=== PATIENT | female | born 1955 | race Caucasian/White ===

== ENCOUNTER 2018-03-03 08:23 | Outpatient (CLI) | payer OTHER | END 2018-03-03 08:24 | disposition home or self-care (01) | LOC: BICMAMMO 08:23 | PROVIDERS: ATTEND Nurse Practitioner Family | DX: Z12.31 Encounter for screening mammogram for malignant neoplasm of breast (principal); Z85.038 Personal history of other malignant neoplasm of large intestine | CPT/HCPCS: 77063; 77067 ==

== ENCOUNTER 2019-06-17 09:35 | Outpatient (CLI) | payer MEDICARE ==
--- NOTE | 2019-06-17 11:51 | RAD ---
2 VIEWS CHEST: Date: 06/17/19 COMPARISON: None. HISTORY: Dyspnea. FINDINGS: Two views of the chest show normal sized cardiomediastinal silhouette. There is no evidence of consol idation, mass, or pleural effusion. The bones are unremarkable. IMPRESSION: No evidence of acute cardiopulmonary disease. POS: TPC
== END 2019-06-17 09:36 | disposition home or self-care (01) ==
LOC: RAD 09:35
PROVIDERS: ATTEND Internal Medicine Critical Care Medicine
DX: R06.00 Dyspnea, unspecified (principal)
CPT/HCPCS: 71046

== ENCOUNTER 2020-07-13 09:26 | Outpatient (CLI) | payer MEDICARE ==
--- NOTE | 2020-07-13 10:26 | RAD ---
2 VIEWS CHEST: Date: 07/13/2020 PROVIDED CLINICAL HISTORY: Dyspnea. FINDINGS: Comparison with 06/17/2019. Cardiac and mediastinal silhouette is unchanged in appearance. Emphysematous changes are redemonstrat ed. Blunting of the left costophrenic angle may reflect pleural fluid. There is no evidence for focal consolidation or pneumothorax. IMPRESSION: 1. Emphysema. 2. Possible left pleural fluid. POS: CHELITA
== END 2020-07-13 09:27 | disposition home or self-care (01) ==
LOC: BICRAD 09:26
PROVIDERS: ATTEND Family Medicine
DX: R06.00 Dyspnea, unspecified (principal); J43.9 Emphysema, unspecified
CPT/HCPCS: 71046

== ENCOUNTER 2020-08-16 10:40 | Outpatient (CLI) | payer MEDICARE ==
--- NOTE | 2020-08-16 11:22 | CT ---
EXAM: CT chest without contrast per low-dose cancer screening protocol HISTORY: History of smoking and nicotine dependence COMPARISON: CTA chest 12/21/2016 TECHNIQUE: Multiple contiguous axial images were obtained in a CT of the chest without contrast per l ow-dose cancer screening protocol. Sagittal and coronal reformats were performed. FINDINGS: Pulmonary nodules: Emphysematous changes seen in the apices. Scarring is seen in the right apex. Ther e is a 2 mm peripheral nodular opacity on image 73 of 155 in the right upper lobe. There is a 3 mm nodule in the right upper lobe on image 85 of 98. There is a stable triangular nodule in the lingula on image 69 of 155. There is a stable 3 mm peripheral nodule in the left lower lobe on image 69 of 155. There is a calcified granuloma in the right lower lobe. Peripheral opacity in the lateral aspect of the right lung base may represent atelectasis or an early infiltrate. Pleural space: No pneumothorax or pleural effusion are seen. Heart: The heart is normal in size. Mediastinum: No hilar or mediastinal lymphadenopathy appreciated on this limited noncontrast examinat ion. Calcifications are seen in the aorta. Bones: Degenerative changes in the spine. Visualized subdiaphragmatic structures: Unremarkable. IMPRESSION: 1. Lung RADS category 2-benign findings. 2. Lung RADS category S. There is peripheral opacity in the right lower lobe which may represent atel ectasis or an early infiltrate..
== END 2020-08-16 10:41 | disposition home or self-care (01) ==
LOC: BICCT 10:40
PROVIDERS: ATTEND Family Medicine
DX: Z12.2 Encounter for screening for malignant neoplasm of respiratory organs (principal); F17.210 Nicotine dependence, cigarettes, uncomplicated; R91.8 Other nonspecific abnormal finding of lung field
CPT/HCPCS: G0297

== ENCOUNTER 2020-08-26 09:56 | Outpatient (CLI) | payer MEDICARE ==
--- NOTE | 2020-08-26 10:39 | ULT ---
Exam: Abdominal aortic ultrasound: History: Screening for aneurysm. Tobacco use FINDINGS: No evidence for abdominal aortic aneurysm. Mild atherosclerotic changes are noted. The bifurcation re gion is unremarkable. Proximal right and left common iliac arteries are unremarkable. IMPRESSION: No evidence for bowel aortic aneurysm. Evidence for atherosclerotic aortic vascular disease.
== END 2020-08-26 09:57 | disposition home or self-care (01) ==
LOC: BICULT 09:56
PROVIDERS: ATTEND Family Medicine
DX: Z13.6 Encounter for screening for cardiovascular disorders (principal); I70.0 Atherosclerosis of aorta
CPT/HCPCS: 76775

== ENCOUNTER 2020-09-05 13:24 | Outpatient (CLI) | payer MEDICARE ==
--- NOTE | 2020-09-05 14:09 | BD ---
EXAM: DEXA bone density examination HISTORY: 65-year-old postmenopausal female for screening COMPARISON: None FINDINGS: L1--bone mineral density 0.813 g/sq cm; T score -1.6 L2--bone mineral density 0.852 g/sq cm; T score -1.6 L3--bone mineral density 0.868 g/sq cm; T score -2.0 L4--bone mineral density 0.896 g/sq cm; T score -1.5 Total L1-L4--bone mineral density 0.856 g/sq cm; T score 0.7 Left femoral neck--bone mineral density0.479; T score -3.3 Total proximal left femur--bone mineral density 0.630; T score -2.6 IMPRESSION: Osteoporosis.
--- NOTE | 2020-09-05 15:38 | MMO ---
Bilateral MAMMO Bilat Screen [facility]. CLINICAL HISTORY: Patient is 65 years old and is seen for screening. The patient has no family history of breast cancer. The patient has a history of colon cancer. VIEWS: The views performed were: bilateral craniocaudal with tomosynthesis and bilateral mediolateral oblique with tomosynthesis. FILMS COMPARED: The present examination has been compared to prior imaging studies performed at [facility] on 12/15/2014, 12/28/2015, 01/25/2017 and 03/03/2018. This study has been interpreted with the assistance of computer-aided detection. MAMMOGRAM FINDINGS: There are scattered fibroglandular densities. There are no suspicious masses, suspicious calcifications, or new areas of architectural distortion. IMPRESSION: THERE IS NO MAMMOGRAPHIC EVIDENCE OF MALIGNANCY. A ROUTINE FOLLOW-UP MAMMOGRAM IN 1 YEAR IS RECOMMENDED. THE RESULTS OF THIS EXAM WERE SENT TO THE PATIENT. ACR BI-RADS Category 1 - Negative MAMMOGRAPHY NOTE: 1. A negative mammogram report should not delay a biopsy if a dominant of clinically suspicious mass is present. 2. Approximately 10% to 15% of breast cancers are not detected by mammography. 3. Adenosis and dense breasts may obscure an underlying neoplasm. Reported by: GIACOMO MATHIS MD Electonically Signed: [id number]
== END 2020-09-05 13:25 | disposition home or self-care (01) ==
LOC: BICMAMMO 13:24
PROVIDERS: ATTEND Family Medicine
DX: Z12.31 Encounter for screening mammogram for malignant neoplasm of breast (principal); Z13.820 Encounter for screening for osteoporosis; M81.0 Age-related osteoporosis without current pathological fracture; Z85.038 Personal history of other malignant neoplasm of large intestine
CPT/HCPCS: 77063; 77067; 77080

== ENCOUNTER 2020-10-25 09:01 | Outpatient (CLI) | payer MEDICARE ==
--- NOTE | 2020-10-25 09:47 | RAD ---
XR Chest Pa Lat STANDARD HISTORY: Dyspnea COMPARISON: 07/13/2020 FINDINGS: The heart size is normal. The aorta is tortuous. The lungs are well expanded without focal areas of consolidation, pneumothorax or large pleural effusions. A small left pleural effusion may be present and is unchanged. There are degenerative changes in the spine. IMPRESSION: Stable exam.
== END 2020-10-25 09:02 | disposition home or self-care (01) ==
LOC: BICRAD 09:01
PROVIDERS: ATTEND Internal Medicine Critical Care Medicine
DX: R06.00 Dyspnea, unspecified (principal)
CPT/HCPCS: 71046

== ENCOUNTER 2020-11-06 02:38 | Inpatient (IN) | payer MEDICARE ==
[2020-11-06 02:50] LABS: Actual Bicarbonate (HCO3a) 19.4 mEq/L (22-28); Analyzer IN Cardio ER; Base Excess (BEa) -10.6 mEq/L (-2.0 to +3.0); CO2 Tension 59.8 mmHg (35.0-45.0); Calcium, Ionized (arterial) 1.23 mmol/L (1.12-1.30); Carboxyhemoglobin (COHb) 1.8 gm% (0.0-3.0); Hemoglobin (Hb) 15.6 g/dL (12.0-16.0); O2 Tension (PaO2), arterial 117.8 mmHg (> 80.0); Potassium - ABG Lab 3.71 mmol/L (3.70-5.30)
[2020-11-06 03:29] LABS: Band 7 % (5-11); Eosinophils 2 % (0-10); Hemoglobin 15.3 g/dL (12.0-16.0); Lymphocytes 61 % (21-51); MDiff Complete? YES; Mean Corpuscular HGB CONC 32.5 g/dL (32.0-36.0); Mean Corpuscular Hemoglobin 31.3 pg (27.0-31.0); Mean Corpuscular Volume 96.3 fL (78.0-98.0); Mean Platelet Volume 7.4 fL (7.4-10.4); Monocytes 6 % (0-10); Neutrophil 21 % (42-75); Platelet Count 319 thou/uL (130-400); RBC Distribution Width 13.1 % (11.5-14.5); Reactive Lymphocytes 2 % (0-10); White Blood Cell (WBC) Count 13.9 thou/uL (4.8-10.8)
[2020-11-06 03:41] LABS: ALT (SGPT) 35 U/L (8-55); AST (SGOT) 39 U/L (5-34); Albumin 4.2 g/dL (3.4-4.8); Alkaline Phosphatase 85 U/L (40-110); Anion Gap 22 mmol/L (10-20); BUN (Urea Nitrogen) 10 mg/dL (9.8-20.1); Bilirubin, Total 0.7 mg/dL (0.2-1.2); Calc. Creatinine Clearance 0 mL/min (70-130); Calcium 9.2 mg/dL (7.8-10.44); Carbon Dioxide 22 mmol/L (23-31); Chloride 101 mmol/L (98-107); Globulin 2.3 g/dL (2.4-3.5); Glucose 318 mg/dL (80-115); Protein, Total 6.5 g/dL (5.8-8.1); Sodium 141 mmol/L (136-145)
[2020-11-06 03:54] LABS: Puncture Site RRA; pH, Arterial 7.13 (7.35-7.45)
[2020-11-06] MEDS ORDERED: cefOXitin Sodium/Dextrose 2 GM/50 ML BAG ONE (04:06)
[2020-11-06] MEDS ORDERED: Aspirin 325 MG TAB ONE (04:06)
[2020-11-06] MEDS ORDERED: Azithromycin 500 MG VIAL ONE (04:08)
[2020-11-06] MEDS ORDERED: Ondansetron PF 4 MG/2 ML Vial ONE (04:36)
[2020-11-06 04:51] LABS: CKMB 7.9 ng/mL (0-6.6)
[2020-11-06] MEDS ORDERED: Calcium Gluc 4.6 MEQ/10 ML (100 MG/ML) SLOW IVP SCH (05:19)
--- NOTE | 2020-11-06 05:23 | PDOC.HHP ---
Hospitalist HPI SOB History of Present Illness: This is a 65-year-old female patient with a history of COPD, hypercholesterolemia colon cancer who presents to the ED with worsening shortness of breath for the past few days. She notes her symptoms have been gradually worsening for the past couple of months. She notes she has COPD for which she follows chief Dr. Perdue and is on fluticasone/salmeterol at home. With worsening symptoms today she activated EMS and she was brought in for further evaluation. She admits to ongoing cough with whitish sputum production. She denies any hemoptysis. She notes some degree of chest tightness today however no overt chest pain. She denies any sweating palpitations or swelling of her feet. She notes she sleeps in a recliner because she has difficulty lying flat and has experienced h er few episodes of PND. She denies any swelling of her feet or abdomen. EMS noted that she was dyspneic and tachypneic of her heart rate at 113 and gave her duo nebs and 125 mg Solu-Medrol. Her symptoms improved with CPAP. She also received magnesium sulfate. At presentation her blood pressure was 118/78, pulse 104, respiratory rate 18, temperature 98.8 and saturating 96 on room air. Her labs ABG showed pH of 7.13, PCO2 59.8 and PO2 of 117 initially while she was on BiPAP. Chemistry initially showed bicarb of 22 and anion gap of 22 creatinine 1.05 glucose 318 sodium 141. Lactate was elevated at 6.3 and troponin at 0.289. Chest x-ray showed hyperinflated lung mcgovern with no clear infiltrations. EKG showed sinus tachycardia with incomplete right bundle branch block. Also concerns for possible acute pericarditis. She was started on azithromycin and ceftriaxone with aspirin 325 mg and a liter of normal saline. Hospitalist team was consulted to admit. Allergies/Adverse Reactions: Allergy/AdvReac Type Severity Reaction Status Date / Time No Known Allergies Allergy Verified 11/06/20 09:09 Home Medications: Medication Instructions Recorded Confirmed Type Evening [place] Oil 500 mg PO TID 05/16/13 02/15/17 History Flaxseed Oil [Flax Seed Oil] 1,000 mg PO DAILY 05/16/13 11/06/20 History [place]-3 Fatty Acids/Fish Oil 1 cap PO DAILY 05/16/13 11/06/20 History [[place] 3 1,000 mg Softgel] Vitamin E 1,000 unit PO DAILY 05/16/13 11/06/20 History Aspirin [Ecotrin Low Strength] 81 mg PO DAILY 11/06/20 11/06/20 History Atorvastatin Calcium 40 mg PO QPM 11/06/20 11/06/20 History Ibuprofen 400 mg PO Q6HR PRN 11/06/20 11/06/20 History Omeprazole 20 mg PO DAILY 11/06/20 11/06/20 History Tiotropium [place] [Spiriva] 1 inh INH QAM 11/06/20 11/06/20 History Carvedilol [Coreg] 3.125 mg PO TID #60 tab 11/12/20 Rx Furosemide [Lasix] 20 mg PO DAILY #30 tab 11/12/20 Rx Ipratropium/Albuterol Sulfate 3 ml NEB QID PRN #30 neb 11/12/20 Rx [Duoneb] Polyethylene Glycol 3350 [Miralax] 17 gm PO DAILYPRN PRN pk 11/12/20 Rx predniSONE 20 mg PO QAM-WM #4 tab 11/12/20 Rx Past History: PMHx:COPD, hypercholesterolemia colon cancer PSHx:hysterectomy, cholecystectomy FHx:None of significance Social:No smoke, alcohol or illicit drug use history Hospitalist HPI ROS Constitutional: reports: malaise. denies: fever, chills, sweats, weakness Respiratory: reports: cough, shortness of breath, SOB with excertion. denies: hemoptysis Cardiovascular: reports: chest pain, orthopnea, paroxysmal noc. dyspnea. denies: palpitations, edema Genitourinary: denies: dysuria, frequency, incontinence Musculoskeletal: denies: neck pain, shoulder pain, arm pain, back pain Neurological: denies: weakness, numbness, incoordination All other systems reviewed; all pertinent +/- noted in HPI/Subj Hospitalist Exam General Appearance: awake alert General - other findings: In mild respiratory distress Eye: PERRL, anicteric sclera ENT: normocephalic atraumatic Heart: RRR, no murmur, no gallops, no rubs Respiratory - other findings: Reduced air movement bilaterally. Occasional wheezing Gastrointestinal: soft, non-tender, non-distended Extremities: no cyanosis, no clubbing, no edema Neurological: cranial nerve grossly intact, no weakness, no focal deficits Psychiatric: normal affect, normal behavior, A&O x 3 Hospitalist Results Result Diagrams: 11/10/20 05:00 11/08/20 08:35 Lab results: Laboratory Last Values WBC 13.9 thou/uL (4.8-10.8) H 11/06/20 02:48 RBC 4.90 mill/uL (4.20-5.40) 11/06/20 02:48 Hgb 15.3 g/dL (12.0-16.0) 11/06/20 02:48 Hct 47.1 % (36.0-47.0) H 11/06/20 02:48 MCV 96.3 fL (78.0-98.0) 11/06/20 02:48 MCH 31.3 pg (27.0-31.0) H 11/06/20 02:48 MCHC 32.5 g/dL (32.0-36.0) 11/06/20 02:48 RDW 13.1 % (11.5-14.5) 11/06/20 02:48 Plt Count 319 thou/uL (130-400) 11/06/20 02:48 MPV 7.4 fL (7.4-10.4) 11/06/20 02:48 Neutrophils % (Manual) 21 % (42-75) L 11/06/20 02:48 Band Neuts % (Manual) 7 % (5-11) 11/06/20 02:48 Lymphocytes % (Manual) 61 % (21-51) H 11/06/20 02:48 Reactive Lymphs % 2 % (0-10) 11/06/20 02:48 Monocytes % (Manual) 6 % (0-10) 11/06/20 02:48 Eosinophils % (Manual) 2 % (0-10) 11/06/20 02:48 Basophils % (Manual) 1 % (0-2) 11/06/20 02:48 Specimen Type ARTERIAL 11/06/20 02:44 Puncture Site RRA 11/06/20 02:44 Bicarbonate Actual 19.4 mEq/L (22-28) L 11/06/20 02:44 ABG pH 7.13 (7.35-7.45) L* 11/06/20 02:44 ABG pCO2 59.8 mmHg (35.0-45.0) H 11/06/20 02:44 ABG pO2 117.8 mmHg (> 80.0) H 11/06/20 02:44 ABG O2 Sat (Measured) 96.9 % (94.0-98.0) 11/06/20 02:44 ABG O2 Content 20.9 vol% (18.0-21.0) 11/06/20 02:44 ABG Base Excess -10.6 mEq/L (-2.0 to +3.0) L 11/06/20 02:44 ABG Hematocrit 46.0 % (36.0-47.0) 11/06/20 02:44 ABG Hemoglobin 15.6 g/dL (12.0-16.0) 11/06/20 02:44 ABG Oxyhemoglobin 94.5 % (94.0-98.0) 11/06/20 02:44 ABG Carboxyhemoglobin 1.8 gm% (0.0-3.0) 11/06/20 02:44 ABG Methemoglobin 0.70 gm% (0.04-1.52) 11/06/20 02:44 ABG Deoxyhemoglobin 3.0 % (0.0-2.9) H 11/06/20 02:44 Todd Test POSITIVE 11/06/20 02:44 A-a O2 Gradient 92.650 mmHg (0-20) H 11/06/20 02:44 Sodium 139 mmol/L (135-148) 11/06/20 02:44 Potassium 3.71 mmol/L (3.70-5.30) 11/06/20 02:44 Chloride 105 mmol/L (98-106) 11/06/20 02:44 Ionized Calcium 1.23 mmol/L (1.12-1.30) 11/06/20 02:44 Mode of Support BIPAP 11/06/20 02:44 Mechanical Rate 4 min 11/06/20 02:44 Inspired O2 40 % 11/06/20 02:44 Pressure Support 12 cmH2O 11/06/20 02:44 PEEP or CPAP 6.0 cmH2O 11/06/20 02:44 Sodium 141 mmol/L (136-145) 11/06/20 02:48 Potassium 4.0 mmol/L (3.5-5.1) 11/06/20 02:48 Chloride 101 mmol/L (98-107) 11/06/20 02:48 Carbon Dioxide 22 mmol/L (23-31) L 11/06/20 02:48 Anion Gap 22 mmol/L (10-20) H 11/06/20 02:48 BUN 10 mg/dL (9.8-20.1) 11/06/20 02:48 Creatinine 1.05 mg/dL (0.6-1.1) 11/06/20 02:48 Estimated GFR (MDRD) 53 11/06/20 02:48 Glucose 318 mg/dL (80-115) H 11/06/20 02:48 Lactic Acid 6.3 mmol/L (0.5-2.2) H* 11/06/20 02:48 Calcium 9.2 mg/dL (7.8-10.44) 11/06/20 02:48 Total Bilirubin 0.7 mg/dL (0.2-1.2) 11/06/20 02:48 AST 39 U/L (5-34) H 11/06/20 02:48 ALT 35 U/L (8-55) 11/06/20 02:48 Alkaline Phosphatase 85 U/L (40-110) 11/06/20 02:48 CK-MB (CK-2) 7.9 ng/mL (0-6.6) H* 11/06/20 02:48 Troponin I 0.289 ng/mL (< 0.028) H 11/06/20 02:48 B-Natriuretic Peptide 17.6 pg/mL (0-100) 11/06/20 02:40 Serum Total Protein 6.5 g/dL (5.8-8.1) 11/06/20 02:48 Albumin 4.2 g/dL (3.4-4.8) 11/06/20 02:48 Globulin 2.3 g/dL (2.4-3.5) L 11/06/20 02:48 Albumin/Globulin Ratio 1.8 g/dL (1.2-2.2) 11/06/20 02:48 Hospitalist H&P A/P Plan: This is a 65-year-old female patient with a history of COPD who presents with worsening COPD exacerbation and elevated troponin concerning for possible ACS. Acute COPD exacerbation Received Solu-Medrol/DuoNeb's in route on EMS also received magnesium sulfate We will continue present treatment/steroids Continue antibioticsazithromycin and ceftriaxone Was on BiPAPwe will continue Repeat ABG and wean off BiPAP as needed Pulmonology consult in a.m. Elevated troponin possible NSTE-ACS Initial troponin was 0.2 Patient has chest tightness has history of smoking We will start anticoagulation Monitor on telemetry Cardiac consult in a.m. Lactic acidosis Lactic six-point representation Likely secondary to possible severe hypoxia Received IV hydration We will trend Hyperglycemia Glucose 318 Could possibly be due to steroids or root However check A1c Monitor
[2020-11-06 05:35] LABS: Actual Bicarbonate (HCO3a) 18.4 mEq/L (22-28); Analyzer IN Cardio ER; Base Excess (BEa) -6.9 mEq/L (-2.0 to +3.0); CO2 Tension 36.6 mmHg (35.0-45.0); Calcium, Ionized (arterial) 1.15 mmol/L (1.12-1.30); Carboxyhemoglobin (COHb) 1.2 gm% (0.0-3.0); Hemoglobin (Hb) 15.1 g/dL (12.0-16.0); O2 Tension (PaO2), arterial 104.9 mmHg (> 80.0); Potassium - ABG Lab 3.82 mmol/L (3.70-5.30); pH, Arterial 7.32 (7.35-7.45)
[2020-11-06 05:36] LABS: Puncture Site RRA
[2020-11-06 05:42] LABS: SARS-CoV-2 NAA Rapid Test Not Detected (NotDetected)
[2020-11-06 05:58] LABS: Hemoglobin A1c 5.5 % (4.0-6.0)
[2020-11-06 06:06] LABS: Lactic Acid 1.6 mmol/L (0.5-2.2)
[2020-11-06 06:19] LABS: Troponin I 2.696 ng/mL (< 0.028)
[2020-11-06 08:34] VITALS: BMI 24.2
--- NOTE | 2020-11-06 08:39 | RAD ---
Exam: Chest one view HISTORY:Dyspnea. COPD exacerbation. Comparison: 10/25/2020 FINDINGS: Cardiac silhouette: Normal Aorta: Atherosclerosis Pulmonary vessels: Normal Costophrenic angles: Clear LUNGS: Hyperinflation with chronic changes. Pneumothorax: None Osseous abnormalities: None IMPRESSION: 1. COPD. Chronic lung parenchymal changes 2. Atherosclerosis.
[2020-11-06] MEDS ORDERED: Enoxaparin Sodium 40 MG/0.4 ML SYRINGE SC SCH (09:00)
[2020-11-06 09:08] LABS: Troponin I 3.481 ng/mL (< 0.028)
[2020-11-06] MEDS: Enoxaparin Sodium 60 MG/0.6 ML SYRINGE SC SCH ×2 (09:58→21:23)
[2020-11-06] MEDS: methylPREDNISolone Sod Succ 40 MG VIAL IVP SCH (10:02)
[2020-11-06] MEDS: Nitroglycerin 2% Ointment 1 INCH/1 GM Packet TOP SCH ×2 (10:03→21:23)
--- NOTE | 2020-11-06 11:08 | PDOC.BPN ---
- Brief Progress Note Encounter Date: 11/06/20 Encounter Time: 09:00 pt recently admitted today. seen on f/u for copd exacerbation and nstemi. patient refers she feels better. currently denies any chest pain palpitation diaphoresis and sob has improved significantly. labs reviewed and showed uptrending troponins. echo done while i was in the room, f/u results. f/u cardiology recommendations copd -continue nebs - steroids - annika+ rocephin - 02 supplementations nstmie - uptrending troponins - on full ac with lovenox - will add asa - continue statin - patient with borderline low bp in the 100s, unable to stat acei + betablocker for now - f/u cardiology recommendation
[2020-11-06] MEDS ORDERED: Aspirin 325 mg Enteric Coated Tablet PO SCH (11:45)
[2020-11-06 13:33] LABS: Troponin I 3.867 ng/mL (< 0.028)
--- NOTE | 2020-11-06 14:56 | CON ---
DATE OF CONSULTATION: 11/06/2020 INDICATION FOR CONSULTATION: A 65-year-old female with increasing dyspnea on exertion, chest tightness, and abnormal cardiac enzymes. HISTORY OF PRESENT ILLNESS: This is a very pleasant 65-year-old female with a long history of tobacco abuse and COPD. She has been followed by Dr. Hernandez for quite some time. She recently underwent stress testing, which showed no evidence of ischemia. However, she continues to smoke only a few cigarettes a day. She has cut back significantly due to her increasing shortness of breath. Since July, she has noticed she has had increasing shortness of breath. She denied any chest pain, but last p.m., she noticed shortness of breath became much worse and she had some chest tightness. She called 911 and was brought to the emergency room. She does not remember even the ambulance coming nor bringing her into the hospital. She is not sure whether she passed out or not, but she had unlocked the door for them to get into the house. Apparently, [place] At this time, she is comfortable. She denies any chest pain or tightness. Unfortunately, her enzymes were increased. On admission, it was 0.289, increased up to 2.6 and now the most recent one early this morning was 3.48 with an MB of 7.9, which certainly looks very suspicious for myocardial infarction. She does not have any ST-segment elevation and no evidence of Q waves thus far. She also had some lactic acidosis, which is also improved. The lactic acid was 6.3 on arrival, is now down to 1.6. She normally sleeps in a recliner. She is on prednisone for the last 1 to 1-1/[address] Perdue. She is on nebulizer treatments. She has had no changes in her breathing patterns, and she says that her shortness of breath has not improved despite medical management and the addition of the steroids. She had a recent echocardiogram, which showed ejection fraction of 55% to 60%, and she also has a history of a right bundle-branch block, and troponin I is noted above as well as a CPK-MB. PAST MEDICAL HISTORY: Significant for COPD. She has hypercholesterolemia. She has diastolic dysfunction. PAST SURGICAL HISTORY: She has had a cholecystectomy. She has history of endometriosis and underwent surgery for that. She has had a hysterectomy. She has had a hernia repair in 1999. She has had a laparoscopic partial colectomy for cancer and had a colon resection. She then had an incisional hernia repair. She has had left eye retinal repair. She has had cataract surgery. FAMILY HISTORY: Her mother had heart disease, diabetes, and hypertension. Her father , uncertain of the causes. MEDICATIONS: Prior to admission include 1. Spiriva hand-held inhaler. 2. She was taking vitamin E. 3. Cranberries. 4. Elderberry. 5. Turmeric. 6. Red yeast rice. 7. Ibuprofen. 8. MiraLAX. 9. Aspirin 81 mg a day. 10. Flaxseed 1000 mg daily. 11. She was using primrose oil capsules. 12. She has been placed on atorvastatin 40 mg once a day. At this time her medications; she has been placed on Lovenox. She is also on azithromycin. She has been given ceftriaxone. She is on her albuterol inhaler with ipratropium. She has been given aspirin 325 mg a day. She was on pravastatin. I have changed her over to atorvastatin 40 mg a day as well as Lovenox 60 mg subcu twice a day. She is on prednisolone as well as p.r.n. nitroglycerin. ALLERGIES: THERE ARE NO KNOWN DRUG ALLERGIES. REVIEW OF SYSTEMS: A 12-point review of systems unremarkable except as noted in the history of present illness. Mainly, she complains of shortness of breath, which has become worse since July. CONSTITUTIONAL: She denied any weight loss or weight gain. ENT: There are no significant changes. GI: She denied any nausea, vomiting, or diarrhea. : She had no complaints such as dysuria, polyuria, or hematuria. MUSCULOSKELETAL: She says she is able to walk. She denies any claudication type symptoms. NEUROLOGICAL: No history of seizures or syncope. PHYSICAL EXAMINATION: GENERAL: Reveals a very thin statured elderly female. She is in no acute distress at this time. VITAL SIGNS: Her blood pressure is 103/55, heart rate is 116, slightly tachycardic, respiratory rate is 18. She is afebrile. HEENT: Shows the head to be normocephalic and atraumatic. Carotid pulses are present. I did not hear any significant bruits. CHEST: Has decreased breath sounds throughout, but I did not hear any rales, rhonchi, or wheezing. CARDIOVASCULAR: Heart sounds are somewhat distant, but she has a normal S1 and S2. I cannot hear an S3 nor an S4. There were no significant murmurs, heaves, thrills, bruits, or rubs. ABDOMEN: Soft and nontender. Well-healed surgical incisions are present. EXTREMITIES: Show no clubbing, cyanosis, or edema. Pedal pulses are present. Radial pulses are present. NEUROLOGICAL: She appears to be fully intact with no gross focal motor deficits. LABORATORY DATA: Shows a WBC of 13.9, hemoglobin 15.3, and platelet count was 319,000. Sodium is 141, potassium of 4.0, BUN was 10 with a creatinine of 1.05, bicarb is 22, blood sugar is 261. This may be due to her recent use of steroids. I do not have any history that she has any diabetes. On September 26, her blood sugar was 36, but this morning, when she arrived, the laboratory was taken at 2:48 a.m., shows a blood sugar of 318, most likely due to the steroids. IMPRESSION: 1. Probable [id number] elevation myocardial infarction in an elderly female, who has a long history of tobacco abuse and hypercholesterolemia. She most likely will be advised to undergo a cardiac catheterization as a definitive tool to rule out evidence of underlying coronary artery disease. 2. Chronic obstructive pulmonary disease. She will be seen by Dr. Perdue. She is on steroids, but she does state that she has not noticed any improvement in her shortness of breath after starting the nebulizers or the steroids. 3. Hypercholesterolemia. I will continue her on Lipitor 40 mg a day. 4. History of tobacco abuse. She says she is only smoking 2 or 3 cigarettes a day now, whereas in July, she had already cut back to half a pack a day, but previously has smoked much more than that and has smoked for quite some times. We will continue to follow the patient with you. Most likely, she will need to undergo cardiac catheterization as a definitive tool to rule out evidence of underlying coronary artery disease in view of the abnormal presentation with chest tightness, which is new for her as well as increasing shortness of breath and the abnormal cardiac enzymes. Job ID: [id number] [facility]
[2020-11-06] MEDS ORDERED: Simvastatin 10 MG TAB PO SCH (21:00)
[2020-11-06] MEDS: Atorvastatin Calcium 40 MG TAB PO SCH (21:24)
[2020-11-07] MEDS ORDERED: Aspirin 325 mg Enteric Coated Tablet PO SCH (09:00)
[2020-11-07] MEDS ORDERED: Iopamidol 370 76% 100 ML VIAL ONE (11:09)
[2020-11-07] MEDS ORDERED: Sodium Chloride 0.9% 1,000 ML IV SCH ×2 (13:00→15:42)
[2020-11-07] MEDS ORDERED: Communication Order-Pharmacy FS SCH (13:00)
[2020-11-07] MEDS ORDERED: Heparin 10,000 UNITS/ 10 ML VIAL ONE (14:07)
[2020-11-07] MEDS ORDERED: Lidocaine 1% (PF) 30 ML VIAL ONE (14:15)
[2020-11-07 14:16] LABS: Anion Gap 13 mmol/L (10-20); BUN (Urea Nitrogen) 6 mg/dL (9.8-20.1); Calc. Creatinine Clearance 76 mL/min (70-130); Calcium 8.8 mg/dL (7.8-10.44); Carbon Dioxide 26 mmol/L (23-31); Chloride 103 mmol/L (98-107); Glucose 119 mg/dL (80-115); Potassium 3.7 mmol/L (3.5-5.1); Sodium 138 mmol/L (136-145)
--- NOTE | 2020-11-07 14:39 | CON ---
DATE OF CONSULTATION: 11/07/2020 CONSULTING PHYSICIAN: Hospitalist Group. REASON FOR CONSULTATION: Increased shortness of breath. HISTORY OF PRESENT ILLNESS: This is one of Dr. Perdue's patients. She called 911 on Saturday because of increasing dyspnea with exertion. It sounds like she was also having some atypical chest pain. She has seen Dr. Perdue in the office recently and had an adjustment to her bronchodilators and a course of steroids without any improvement in her dyspnea on exertion. She tells me her cardiac enzymes were slightly elevated, and she is scheduled for cardiac catheterization later today. She has had noninvasive cardiac testing in the past, which was negative. PAST MEDICAL HISTORY: 1. COPD. 2. Hyperlipidemia. 3. Diastolic heart dysfunction. PAST SURGICAL HISTORY: 1. Cholecystectomy. 2. Hysterectomy. 3. Hernia repair. 4. Laparoscopic partial colectomy for colon cancer. 5. Left eye retinal detachment repair. 6. Cataract surgery. MEDICATIONS PRIOR TO ADMISSION: 1. Spiriva. 2. Vitamin E. 3. Cranberries. 4. Elderberry. 5. Turmeric. 6. Ibuprofen. 7. MiraLAX. 8. Aspirin. 9. Flaxseed oil. 10. She has been on some type of inhaler at home, she does not know the name. FAMILY HISTORY: Remarkable for diabetes, hypertension. ALLERGIES: NONE. REVIEW OF SYSTEMS: Twelve-point review of systems was otherwise negative, except for that mentioned above. PHYSICAL EXAMINATION: VITAL SIGNS: Temperature 97.7, pulse 89, respirations 16, O2 saturation 97% on room air, and blood pressure 101/58. GENERAL: She is lying quietly in bed, in no acute distress. HEENT: Unremarkable. NECK: Without adenopathy or JVD. LUNGS: Clear to auscultation without wheezing. CARDIAC: S1 and S2, regular. ABDOMEN: Soft and nontender. EXTREMITIES: No clubbing, cyanosis, or edema. DIAGNOSTIC STUDIES: A chest x-ray obtained on 11/06, which was reviewed by myself, shows hyperinflation without evidence of mass, effusion, or infiltrate. Pulmonary function test obtained in 2014 showed FEV1 of 1 L, FVC of 1.95 L with a diffusion capacity of 66% predicted, consistent with obstructive lung disease. ASSESSMENT: 1. Chronic obstructive pulmonary disease, which seems stable. 2. Possible coronary ischemia, made worse with exertion. 3. Diastolic heart dysfunction. PLAN: 1. Cardiac catheterization later today. 2. Continue nebs, antibiotics, and steroids. I will notify Dr. Perdue of patient's admission. Job ID: [id number]
[2020-11-07] MEDS ORDERED: Fentanyl 100 MCG/2 ML VIAL ONE (14:49)
[2020-11-07] MEDS ORDERED: Midazolam HCl 2 mg/2 ml Vial ONE (14:49)
[2020-11-07] MEDS ORDERED: Protamine Sulfate 50 MG/5 ML VIAL ONE (15:17)
[2020-11-07] MEDS ORDERED: Acetaminophen/Codeine 30-300mg Tablet PO PRN ×2 (15:41)
[2020-11-07] MEDS ORDERED: Sodium Chloride 0.9% 200 ML IV PRN (15:41)
--- NOTE | 2020-11-07 15:54 | PDOC.HOSPP ---
- Subjective Encounter Date: 11/07/20 Subjective: No acute events overnight. Patient remained stable and n.p.o. for cardiac catheterization stenting. - Objective Vital Signs & Weight: Vital Signs (12 hours) Pulse Resp Pulse Ox 11/07/20 09:40 89 16 97 11/07/20 06:35 93 16 96 Weight Weight 124 lb I&O: 11/06/20 11/07/20 11/08/20 06:59 06:59 06:59 Intake Total 600 Balance 600 Result Diagrams: 11/06/20 02:48 11/07/20 03:30 Hospitalist ROS - Review of Systems All other systems reviewed; all pertinent +/- noted in HPI/Subj - Medication Medications: Active Medications Generic Name Dose Route Start Last Admin Trade Name Freq PRN Reason Stop Dose Admin Albuterol/Ipratropium 3 ml 11/06/20 06:30 11/07/20 09:40 Ipratropium/Albuterol Sulfate 3 Ml Neb NEB 3 ml [id number] JUAN M Administration Atorvastatin Calcium 40 mg 11/06/20 21:00 11/06/20 21:24 Atorvastatin Calcium 40 Mg Tab PO 40 mg HS JUAN M Administration Methylprednisolone Sodium Succinate 40 mg 11/06/20 09:00 11/06/20 10:02 Methylprednisolone Sod Succ 40 Mg Vial IVP 40 mg DAILY JUAN M Administration Hospitalist Exam Vitals: Vital Signs (12 hours) Pulse Resp Pulse Ox 11/07/20 09:40 89 16 97 11/07/20 06:35 93 16 96 Weight Weight 124 lb General Appearance: NAD, awake alert Eye: PERRL, anicteric sclera Neck: no JVD Heart: RRR, no murmur, no gallops Respiratory: CTAB, no wheezes Gastrointestinal: soft, non-tender, non-distended Psychiatric: normal affect Hosp A/P (1) NSTEMI (non-ST elevated myocardial infarction) Code(s): I21.4 - NON-ST ELEVATION (NSTEMI) MYOCARDIAL INFARCTION Status: Acute (2) Colonic mass Code(s): K63.9 - DISEASE OF INTESTINE, UNSPECIFIED Status: Acute (3) COPD (chronic obstructive pulmonary disease) Status: Chronic - Plan This is a 65-year-old female patient with a history of COPD who presents with worsening COPD exacerbation and elevated troponin concerning for possible ACS. Acute COPD exacerbation Received Solu-Medrol/DuoNeb's in route on EMS also received magnesium sulfate We will continue present treatment/steroids Continue antibioticsazithromycin and ceftriaxone Was on BiPAPwe will continue Wean down on oxygen as needed Elevated troponin possible NSTE-ACS Initial troponin was 0.2 Patient has chest tightness has history of smoking We will start anticoagulation Monitor on telemetry Cardiac consult performed and patient scheduled for cardiac catheterization this afternoon 11/07/2020 Lactic acidosis; resolved after IV hydration Hyperglycemia Monitor and continue insulin sliding scale
[2020-11-07] MEDS: Carvedilol 3.125 MG TAB PO SCH (17:01)
[2020-11-07] MEDS: methylPREDNISolone Sod Succ 40 MG VIAL IVP SCH (17:05)
[2020-11-07 20:04] LABS: Band 27 % (5-11); Lymphocytes 12 % (21-51); MDiff Complete? YES; Mean Corpuscular HGB CONC 32.8 g/dL (32.0-36.0); Mean Corpuscular Hemoglobin 30.9 pg (27.0-31.0); Mean Corpuscular Volume 94.3 fL (78.0-98.0); Mean Platelet Volume 7.6 fL (7.4-10.4); Monocytes 12 % (0-10); Neutrophil 44 % (42-75); Platelet Count 257 thou/uL (130-400); Platelet Morphology Comment Appears Adequate; RBC Distribution Width 13.3 % (11.5-14.5); RBC Morphology Normal; Reactive Lymphocytes 5 % (0-10); Red Blood Cell (RBC) Count 4.22 mill/uL (4.20-5.40)
[2020-11-07] MEDS: cefTRIAXone\\ROCEPHIN 1 GM in Sodium Chloride 0.9% 100 ML IVPB SCH (20:13)
[2020-11-07] MEDS: Azithromycin 500 MG in Sodium Chloride 0.9% 250 ML 250 ML IVPB SCH (20:14)
[2020-11-07] MEDS: Atorvastatin Calcium 40 MG TAB PO SCH (21:11)
[2020-11-07] MEDS: Nitroglycerin 2% Ointment 1 INCH/1 GM Packet TOP SCH (22:02)
[2020-11-08 04:17] LABS: Hemoglobin A1c 5.6 % (4.0-6.0)
[2020-11-08] MEDS: cefTRIAXone\\ROCEPHIN 1 GM in Sodium Chloride 0.9% 100 ML IVPB SCH (04:21)
[2020-11-08] MEDS: Azithromycin 500 MG in Sodium Chloride 0.9% 250 ML 250 ML IVPB SCH (06:16)
[2020-11-08] MEDS: Carvedilol 3.125 MG TAB PO SCH ×2 (08:11→16:10)
[2020-11-08] MEDS: Aspirin 81 mg Enteric Coated Tablet PO SCH (08:11)
[2020-11-08] MEDS: methylPREDNISolone Sod Succ 40 MG VIAL IVP SCH (08:12)
[2020-11-08 08:50] LABS: #Lymphocytes 1.5 thou/uL (1.20-3.40); #Monocytes 0.7 thou/uL (0.11-0.59); #Neutrophils 6.7 thou/uL (1.40-6.50); %Lymphocytes 16.5 % (21.0-51.0); %Monocytes 7.5 % (0.0-10.0); %Neutrophils 75.9 % (42.0-75.0); Hemoglobin 13.7 g/dL (12.0-16.0); Mean Corpuscular HGB CONC 33.7 g/dL (32.0-36.0); Mean Corpuscular Hemoglobin 32.3 pg (27.0-31.0); Mean Corpuscular Volume 95.9 fL (78.0-98.0); Mean Platelet Volume 7.3 fL (7.4-10.4); Platelet Count 240 thou/uL (130-400); RBC Distribution Width 13.1 % (11.5-14.5); Red Blood Cell (RBC) Count 4.24 mill/uL (4.20-5.40); White Blood Cell (WBC) Count 8.8 thou/uL (4.8-10.8)
[2020-11-08 09:24] LABS: Albumin 3.6 g/dL (3.4-4.8); Anion Gap 13 mmol/L (10-20); Bilirubin, Total 0.4 mg/dL (0.2-1.2); Calcium 8.5 mg/dL (7.8-10.44); Carbon Dioxide 25 mmol/L (23-31); Chloride 107 mmol/L (98-107); Globulin 2.3 g/dL (2.4-3.5); Glucose 126 mg/dL (80-115); Protein, Total 5.9 g/dL (5.8-8.1); Sodium 141 mmol/L (136-145)
[2020-11-08 09:30] LABS: ALT (SGPT) 28 U/L (8-55); AST (SGOT) 26 U/L (5-34); Alkaline Phosphatase 66 U/L (40-110); BUN (Urea Nitrogen) 9 mg/dL (9.8-20.1); Calc. Creatinine Clearance 76 mL/min (70-130)
--- NOTE | 2020-11-08 12:16 | PDOC.HOSPP ---
- Subjective Encounter Date: 11/08/20 Subjective: No acute events overnight. Patient remains chest pain-free and vitals are stable. She is tolerating diet without any issues - Objective Vital Signs & Weight: Vital Signs (12 hours) Temp Pulse Resp BP Pulse Ox 11/08/20 12:00 97.9 F 95 16 138/65 94 L 11/08/20 08:00 97.8 F 96 18 157/77 H 95 11/08/20 06:46 98 11/08/20 06:44 89 16 98 11/08/20 06:00 98.1 F 86 18 115/65 96 11/08/20 04:00 98.0 F 98 18 136/65 94 L 11/08/20 02:37 97 14 92 L 11/08/20 02:00 98.0 F 90 16 128/72 93 L Weight Weight 124 lb I&O: 11/07/20 11/08/20 11/09/20 06:59 06:59 06:59 Intake Total 600 120 Balance 600 120 Result Diagrams: 11/08/20 08:35 11/08/20 08:35 Hospitalist ROS - Review of Systems All other systems reviewed; all pertinent +/- noted in HPI/Subj - Medication Medications: Active Medications Generic Name Dose Route Start Last Admin Trade Name Freq PRN Reason Stop Dose Admin Albuterol/Ipratropium 3 ml 11/06/20 06:30 11/08/20 10:26 Ipratropium/Albuterol Sulfate 3 Ml Neb NEB Not Given [id number] JUAN M Aspirin 81 mg 11/08/20 09:00 11/08/20 08:11 Aspirin 81 Mg Enteric Coated Tablet PO 81 mg DAILY JUAN M Administration Atorvastatin Calcium 40 mg 11/06/20 21:00 11/07/20 21:11 Atorvastatin Calcium 40 Mg Tab PO 40 mg HS JUAN M Administration Carvedilol 1.5625 mg 11/07/20 17:00 11/08/20 08:11 Carvedilol 3.125 Mg Tab PO 1.5625 mg BID-WM JUAN M Administration Ceftriaxone Sodium 1 gm/ 100 mls @ 200 mls/hr 11/07/20 04:00 11/08/20 04:21 Sodium Chloride IVPB 100 mls Q24HR JUAN M Administration Azithromycin 500 mg/ Sodium 250 mls @ 250 mls/hr 11/07/20 05:00 11/08/20 06:16 Chloride IVPB 250 mls Q24HR JUAN M Administration Methylprednisolone Sodium Succinate 40 mg 11/06/20 09:00 11/08/20 08:12 Methylprednisolone Sod Succ 40 Mg Vial IVP 40 mg DAILY JUAN M Administration Hospitalist Exam Vitals: Vital Signs (12 hours) Temp Pulse Resp BP Pulse Ox 11/08/20 12:00 97.9 F 95 16 138/65 94 L 11/08/20 08:00 97.8 F 96 18 157/77 H 95 11/08/20 06:46 98 11/08/20 06:44 89 16 98 11/08/20 06:00 98.1 F 86 18 115/65 96 11/08/20 04:00 98.0 F 98 18 136/65 94 L 11/08/20 02:37 97 14 92 L 11/08/20 02:00 98.0 F 90 16 128/72 93 L Weight Weight 124 lb General Appearance: awake alert Eye: PERRL ENT: normocephalic atraumatic Neck: no JVD Heart: RRR, no gallops, no rubs, murmur present, II/IV Respiratory: CTAB, no wheezes, no rales, no ronchi Gastrointestinal: soft, non-tender, non-distended Extremities: no edema Neurological: no new deficit Psychiatric: A&O x 3 Hosp A/P (1) NSTEMI (non-ST elevated myocardial infarction) Code(s): I21.4 - NON-ST ELEVATION (NSTEMI) MYOCARDIAL INFARCTION Status: Acute (2) Colonic mass Code(s): K63.9 - DISEASE OF INTESTINE, UNSPECIFIED Status: Acute (3) COPD (chronic obstructive pulmonary disease) Status: Chronic - Plan This is a 65-year-old female patient with a history of COPD who presents with worsening COPD exacerbation and elevated troponin concerning for possible ACS. Acute COPD exacerbation: Received Solu-Medrol/DuoNeb's in route on EMS also received magnesium sulfate Transition patient from IV steroids to oral prednisone 40 mg daily Continue azithromycin, but discontinue Rocephin Initially, patient was on BiPAP, but has now weaned off of oxygen. Non-ST elevation ME: Troponin elevated Patient has chest tightness has history of smoking Patient initially started on anticoagulation and was admitted to telemetry Cardiac consult was placed and decision was made for cardiac catheterization on 11/07/2020 Cardiac cath was clean without any evidence of clotting or obstruction. Ejection fraction was markedly diminished Ordered for LifeVest placed, pending insurance approval Heart failure with reduced ejection fraction: Markedly diminished ejection fraction on cardiac catheterization Coreg and statin as well as aspirin started Lactic acidosis; resolved after IV hydration Hyperglycemia Monitor and continue insulin sliding scale DVT prophylaxis: Lovenox GI prophylaxis: Pepcid CODE STATUS: Full code Disposition: Pending clinical improvement
--- NOTE | 2020-11-08 12:27 | PRG ---
DATE OF SERVICE: 11/08/2020 SUBJECTIVE: Ms. Kulkarni is doing well. Apparently, she has been diagnosed with Takotsubo cardiomyopathy. She tells me she has only had 5 cigarettes since she saw me in the office several weeks back. She has been dealing with multiple life stressors and some component of depression, which leads to her smoking. She denies shortness of breath today. OBJECTIVE: VITAL SIGNS: She is afebrile, heart rate 95, respiratory rate 16, oximetry is 94, blood pressure 138/65. LUNGS: Clear. HEART: Regular rhythm. ABDOMEN: Soft. EXTREMITIES: Without edema. IMPRESSION: 1. Chronic obstructive pulmonary disease, clinically stable. 2. Takotsubo cardiomyopathy, clinically stable. We will follow. Job ID: [id number]
[2020-11-08] MEDS: Atorvastatin Calcium 40 MG TAB PO SCH (21:35)
[2020-11-09] MEDS: Azithromycin 500 MG in Sodium Chloride 0.9% 250 ML 250 ML IVPB SCH (05:05)
[2020-11-09] MEDS: predniSONE 20 MG TAB PO SCH (09:25)
[2020-11-09] MEDS: Aspirin 81 mg Enteric Coated Tablet PO SCH (09:26)
[2020-11-09] MEDS: Carvedilol 3.125 MG TAB PO SCH ×3 (09:26→20:54)
--- NOTE | 2020-11-09 09:30 | PRG ---
DATE OF SERVICE: 11/09/2020 SUBJECTIVE: Ms. Kulkarni remains stable. She reports dyspnea on exertion walking in the [place], but she is comfortable at rest. OBJECTIVE: VITAL SIGNS: She is afebrile. Heart rate is in 80s, respiratory rate 18, oximetry is in the high 90s on room air, blood pressure 132/61. LUNGS: Free of wheezes. HEART: Regular rhythm. ABDOMEN: Soft. IMPRESSION: 1. Chronic obstructive pulmonary disease, clinically stable. 2. Cardiomyopathy. She had nothing that looked like. 3. Pneumonia on presentation in chest x-ray. We will discontinue antibiotics. Since she is not wheezing, we could probably go to a lower dose of prednisone in the morning. Job ID: [id number] [facility]
[2020-11-09] MEDS ORDERED: Furosemide 20 MG TAB PO SCH (11:00)
--- NOTE | 2020-11-09 13:10 | PDOC.HOSPP ---
- Subjective Encounter Date: 11/09/20 Encounter Time: 13:09 Subjective: No overnight events. Breathing better this am. Waiting on LifeVest approval. Chart and medications reviewed. - Objective Vital Signs & Weight: Vital Signs (12 hours) Temp Pulse Resp BP BP Pulse Ox 11/09/20 11:43 98 F 104 H 20 126/64 94 L 11/09/20 10:35 96 20 93 L 11/09/20 10:00 95 18 130/66 94 L 11/09/20 08:23 87 18 98 11/09/20 08:00 97.6 F 81 137/78 95 11/09/20 06:00 86 18 132/61 95 11/09/20 03:08 97.4 F L 99 14 123/62 93 L 11/09/20 02:17 16 11/09/20 02:00 86 119/62 94 L Weight Admit Weight 124 lb Weight 124 lb I&O: 11/08/20 11/09/20 11/10/20 06:59 06:59 06:59 Intake Total 120 1160 480 Output Total 850 Balance 120 310 480 Result Diagrams: 11/10/20 05:00 11/08/20 08:35 Hospitalist ROS - Medication Medications: Active Medications Generic Name Dose Route Start Last Admin Trade Name Freq PRN Reason Stop Dose Admin Albuterol/Ipratropium 3 ml 11/06/20 06:30 11/09/20 10:35 Ipratropium/Albuterol Sulfate 3 Ml Neb NEB 3 ml [id number] JUAN M Administration Aspirin 81 mg 11/08/20 09:00 11/09/20 09:26 Aspirin 81 Mg Enteric Coated Tablet PO 81 mg DAILY JUAN M Administration Atorvastatin Calcium 40 mg 11/06/20 21:00 11/08/20 21:35 Atorvastatin Calcium 40 Mg Tab PO 40 mg HS JUAN M Administration Prednisone 40 mg 11/09/20 08:00 11/09/20 09:25 Prednisone 20 Mg Tab PO 40 mg QAM-WM JUAN M Administration Hospitalist Exam Vitals: Vital Signs (12 hours) Temp Pulse Resp BP BP Pulse Ox 11/09/20 11:43 98 F 104 H 20 126/64 94 L 11/09/20 10:35 96 20 93 L 11/09/20 10:00 95 18 130/66 94 L 11/09/20 08:23 87 18 98 11/09/20 08:00 97.6 F 81 137/78 95 11/09/20 06:00 86 18 132/61 95 11/09/20 03:08 97.4 F L 99 14 123/62 93 L 11/09/20 02:17 16 11/09/20 02:00 86 119/62 94 L Weight Admit Weight 124 lb Weight 124 lb Hosp A/P - Plan This is a 65-year-old female patient with a history of COPD who presents with worsening COPD exacerbation and elevated troponin concerning for possible ACS found to have low EF with Takatsubo Cardiomyopathy now waiting on LifeVest. Acute COPD exacerbation Received Solu-Medrol/DuoNeb's in route on EMS also received magnesium sulfate Transition patient from IV steroids to oral prednisone 40 mg daily Pulmonoly has discontinued antibiotics as she has completed a course of ceftriaxone and azithro Initially, patient was on BiPAP, but has now weaned off of oxygen. NSTEMI Troponin elevated Patient has chest tightness has history of smoking Patient initially started on anticoagulation and was admitted to telemetry Cardiac consult was placed and decision was made for cardiac catheterization on 11/07/2020 Cardiac cath was clean without any evidence of clotting or obstruction. Ejection fraction was markedly diminished Ordered for LifeVest placed, pending insurance approval Heart failure with reduced ejection fraction Markedly diminished ejection fraction on cardiac catheterization Coreg and statin as well as aspirin started Lactic acidosis Resolved after IV hydration Hyperglycemia Monitor and continue insulin sliding scale DVT prophylaxis: Lovenox CODE STATUS: Full code Disposition: Pending clinical improvement Case discussed with attending physician, Dr. Herron.
[2020-11-09] MEDS: Atorvastatin Calcium 40 MG TAB PO SCH (20:54)
[2020-11-10 05:13] LABS: Hemoglobin 13.8 g/dL (12.0-16.0); Platelet Count 311 thou/uL (130-400)
[2020-11-10] MEDS: Carvedilol 3.125 MG TAB PO SCH ×3 (08:54→21:07)
[2020-11-10] MEDS: predniSONE 20 MG TAB PO SCH (08:54)
[2020-11-10] MEDS: Furosemide 20 MG TAB PO SCH (08:54)
[2020-11-10] MEDS: Aspirin 81 mg Enteric Coated Tablet PO SCH (08:54)
[2020-11-10] MEDS ORDERED: Polyethylene Glycol 3350 17 GM Packet PO SCH (10:30)
--- NOTE | 2020-11-10 12:05 | PRG ---
DATE OF SERVICE: 11/10/2020 SUBJECTIVE: Ms. Kulkarni is doing well. She is waiting for LifeVest. Oximetry is 95% on room air. She is afebrile. OBJECTIVE: VITAL SIGNS: Heart rate is in the 70s, blood pressure is 117/67. LUNGS: Clear. HEART: Regular rhythm. ABDOMEN: Soft. LABORATORY DATA: Hemoglobin 13.8. IMPRESSION: 1. Chronic obstructive pulmonary disease, clinically stable. 2. Cardiomyopathy, awaiting LifeVest. 3. Reactive depression. She talked a great deal about being depressed, alone in the hospital. She is not suicidal, however. PLAN: I will see her 4 to 6 weeks after she is discharged from the hospital when her COPD stable. Hopefully, she can avoid smoking after she leaves. Job ID: [id number] [facility]
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
[2020-11-10] MEDS: Atorvastatin Calcium 40 MG TAB PO SCH (21:07)
[2020-11-10] MEDS: Polyethylene Glycol 3350 17 GM Packet PO PRN (21:08)
--- NOTE | 2020-11-10 21:17 | EKG ---
Test Reason : Blood Pressure : / mmHG Vent. Rate : 087 BPM Atrial Rate : 087 BPM P-R Int : 138 ms QRS Dur : 112 ms QT Int : 442 ms P-R-T Axes : 083 -52 256 degrees QTc Int : 531 ms Normal sinus rhythm Left axis deviation Right bundle branch block Marked T-wave abnormality, consider inferolateral ischemia Abnormal ECG Confirmed by NEGAR VU, DR. Tomas ([id number]) on 11/10/2020 9:16:49 PM Referred By: MARIA ELENA Confirmed By:DR. Genoveva BILLS MD
[2020-11-11] MEDS: Polyethylene Glycol 3350 17 GM Packet PO PRN (09:07)
[2020-11-11] MEDS: Aspirin 81 mg Enteric Coated Tablet PO SCH (09:07)
[2020-11-11] MEDS: predniSONE 20 MG TAB PO SCH (09:08)
[2020-11-11] MEDS: Carvedilol 3.125 MG TAB PO SCH ×3 (09:08→20:59)
[2020-11-11] MEDS: Furosemide 20 MG TAB PO SCH (09:08)
[2020-11-11] MEDS ORDERED: Magnesium Citrate 300 ML BOT PO PRN (15:19)
[2020-11-11] MEDS ORDERED: Bisacodyl 10 MG SUPP PR PRN (15:20)
--- NOTE | 2020-11-11 15:31 | PDOC.HOSPP ---
- Subjective Encounter Date: 11/11/20 Subjective: Breathing comfortably. Still no bowel movement. She did get some coloring books. - Objective Vital Signs & Weight: Vital Signs (12 hours) Temp Pulse Resp BP Pulse Ox 11/11/20 13:52 76 16 92 L 11/11/20 11:46 97.8 F 85 16 116/56 L 94 L 11/11/20 10:08 88 16 94 L 11/11/20 07:55 97.5 F L 88 16 128/70 96 11/11/20 06:44 72 16 97 11/11/20 06:00 68 18 122/66 97 11/11/20 04:00 97.8 F 72 22 H 134/63 95 Weight Admit Weight 124 lb Weight 124 lb I&O: 11/10/20 11/11/20 11/12/20 06:59 06:59 06:59 Intake Total 800 Balance 800 Result Diagrams: 11/10/20 05:00 11/08/20 08:35 Hospitalist ROS - Medication Medications: Active Medications Generic Name Dose Route Start Last Admin Trade Name Freq PRN Reason Stop Dose Admin Albuterol/Ipratropium 3 ml 11/06/20 06:30 11/11/20 13:52 Ipratropium/Albuterol Sulfate 3 Ml Neb NEB 3 ml [id number] JUAN M Administration Aspirin 81 mg 11/08/20 09:00 11/11/20 09:07 Aspirin 81 Mg Enteric Coated Tablet PO 81 mg DAILY JUAN M Administration Atorvastatin Calcium 40 mg 11/06/20 21:00 11/10/20 21:07 Atorvastatin Calcium 40 Mg Tab PO 40 mg HS JUAN M Administration Carvedilol 3.125 mg 11/09/20 15:00 11/11/20 09:08 Carvedilol 3.125 Mg Tab PO 3.125 mg TID JUAN M Administration Furosemide 20 mg 11/10/20 09:00 11/11/20 09:08 Furosemide 20 Mg Tab PO 20 mg DAILY JUAN M Administration Pantoprazole Sodium 40 mg 11/10/20 09:00 11/11/20 09:08 Pantoprazole 40 Mg Tab PO 40 mg DAILY JUAN M Administration Polyethylene Glycol 17 gm 11/10/20 10:23 11/11/20 09:07 Polyethylene Glycol 3350 17 Gm Packet PO 17 gm DAILYPRN PRN Administration Constipation Prednisone 40 mg 11/09/20 08:00 11/11/20 09:08 Prednisone 20 Mg Tab PO 40 mg QAM-WM JUAN M Administration Sodium Chloride 10 ml 11/10/20 09:00 11/11/20 09:22 Flush - Normal Saline 10 Ml Syringe IVF 10 ml Q12HR JUAN M Administration Hospitalist Exam Vitals: Vital Signs (12 hours) Temp Pulse Resp BP Pulse Ox 11/11/20 13:52 76 16 92 L 11/11/20 11:46 97.8 F 85 16 116/56 L 94 L 11/11/20 10:08 88 16 94 L 11/11/20 07:55 97.5 F L 88 16 128/70 96 11/11/20 06:44 72 16 97 11/11/20 06:00 68 18 122/66 97 11/11/20 04:00 97.8 F 72 22 H 134/63 95 Weight Admit Weight 124 lb Weight 124 lb General Appearance: NAD, awake alert Heart: RRR, no murmur, no gallops, no rubs, normal peripheral pulses Respiratory: CTAB, no wheezes, no rales, no ronchi, normal chest expansion, no tachypnea, normal percussion Gastrointestinal: soft, non-tender, non-distended, normal bowel sounds, no palpable masses, no hepatomegaly, no splenomegaly, no bruit Extremities: no cyanosis, no clubbing, no edema Skin: normal turgor, no lesions, no rashes Neurological: cranial nerve grossly intact, normal sensation to touch, no weakness, no focal deficits, no new deficit Musculoskeletal: normal tone, normal strength, no muscle wasting Psychiatric: normal affect, normal behavior, A&O x 3 Hosp A/P (1) Acute respiratory failure with hypercapnia Code(s): J96.02 - ACUTE RESPIRATORY FAILURE WITH HYPERCAPNIA Status: Acute (2) COPD exacerbation Code(s): J44.1 - CHRONIC OBSTRUCTIVE PULMONARY DISEASE W (ACUTE) EXACERBATION Status: Acute (3) Nonischemic cardiomyopathy Code(s): I42.8 - OTHER CARDIOMYOPATHIES Status: Acute (4) NSTEMI (non-ST elevated myocardial infarction) Code(s): I21.4 - NON-ST ELEVATION (NSTEMI) MYOCARDIAL INFARCTION Status: Acute (5) Hyperlipidemia Code(s): E78.5 - HYPERLIPIDEMIA, UNSPECIFIED Status: Acute (6) Tobacco abuse Code(s): Z72.0 - TOBACCO USE Status: Acute (7) Constipation Code(s): K59.00 - CONSTIPATION, UNSPECIFIED Status: Acute - Plan This is a 65-year-old female patient with a history of COPD who presents with worsening COPD exacerbation and elevated troponin concerning for possible ACS found to have low EF with Takatsubo Cardiomyopathy now waiting on LifeVest. Acute COPD exacerbation Initially, patient was on BiPAP, but has now weaned off of oxygen. Received Solu-Medrol/DuoNeb's in route on EMS also received magnesium sulfate Transition patient from IV steroids to oral prednisone 40 mg daily Pulmonology has discontinued antibiotics as she did not appear to have evidence of pneumonia on initial presentation. Has completed a course of ceftriaxone and azithro Reassured the patient she did not have asthma. We will need to resume her Spiriva as outpatient. NSTEMI Troponin elevated Patient has chest tightness has history of smoking Patient initially started on anticoagulation and was admitted to telemetry Cardiac consult was placed and decision was made for cardiac catheterization on 11/07/2020 Cardiac cath was clean without any evidence of clotting or obstruction. Ejection fraction was markedly diminished at 20 to 25% Nonischemic cardiomyopathy Markedly diminished ejection fraction on cardiac catheterization and on echocardiogram. Coreg and statin as well as aspirin started No evidence of decompensated failure. Euvolemic. Ordered for LifeVest placed, pending insurance approval and delivery Lactic acidosis Resolved after IV hydration Hyperglycemia Monitor and continue insulin sliding scale. Appears to be an initial finding that is subsequently resolved. Constipation: Added MiraLAX on 11/10/2020. 11/11/2020, no result. Added mag citrate and/or Dulcolax suppository as needed Tobacco abuse: Patient was counseled regarding cessation. Sounds like she is amenable. Hyperlipidemia: Continue statin. DVT prophylaxis: Lovenox CODE STATUS: Full code Disposition: As of 11/09/2020 the patient is medically stable for discharge. Awaiting LifeVest delivery. Delayed due to inclement weather.
--- NOTE | 2020-11-11 17:35 | PDOC.FMACP ---
Advance Care Planning - Problem (1) Palliative care encounter Status: Acute Code(s): Z51.5 - ENCOUNTER FOR PALLIATIVE CARE (2) COPD exacerbation Status: Acute Code(s): J44.1 - CHRONIC OBSTRUCTIVE PULMONARY DISEASE W (ACUTE) EXACERBATION (3) NSTEMI (non-ST elevated myocardial infarction) Status: Acute Code(s): I21.4 - NON-ST ELEVATION (NSTEMI) MYOCARDIAL INFARCTION (4) Nonischemic cardiomyopathy Status: Acute Code(s): I42.8 - OTHER CARDIOMYOPATHIES (5) Tobacco abuse Status: Acute Code(s): Z72.0 - TOBACCO USE - Note Summary: Palliative care addressed Advanced Care Planning. The diagnosis, prognosis and goals of care were discussed. Appropriate forms and documentation to accomplish the goals of care were discussed. All questions were answered. Completed MPOA/Directive to physician Desires to remain with full resuscitation measures. Hopeful to return to home setting with lifevest Discussed disease trajectory and decline and that goals may need to be revisited as disease progression occurs. Please also refer to Palliative care notes in note section Time Spent (mins): 20
[2020-11-11] MEDS: Atorvastatin Calcium 40 MG TAB PO SCH (20:59)
[2020-11-12] MEDS: predniSONE 20 MG TAB PO SCH (11:14)
[2020-11-12] MEDS: Aspirin 81 mg Enteric Coated Tablet PO SCH (11:15)
[2020-11-12] MEDS: Carvedilol 3.125 MG TAB PO SCH (11:15)
[2020-11-12] MEDS: Furosemide 20 MG TAB PO SCH (11:15)
[2020-11-12 15:38] VITALS: BP 117/63; TEMP 98.4
--- NOTE | 2020-11-12 15:51 | PDOC.DS.DS ---
Provider Date of Admission: 11/06/20 04:29 Date of Discharge: 11/12/20 Admitting Provider: Ciro Chappell MD Consultations: Cardiology, Pulmonary Primary Care Physician: Unknown Course Hospital Course: This is a 65-year-old female patient with a history of COPD who presents with worsening shortness of breath. Initially felt to have COPD exacerbation and elevated troponin concerning for possible ACS. Acute COPD exacerbation Initially, patient was on BiPAP, but weaned off of oxygen. Received Solu-Medrol/DuoNeb's in route on EMS also received magnesium sulfate Transition patient from IV steroids to oral prednisone 40 mg daily She was initially treated with steroids for possible underlying pneumonia. Pulmonology has discontinued antibiotics as she did not appear to have evidence of pneumonia on initial presentation. Has completed a course of ceftriaxone and azithro We will need to resume her Spiriva as outpatient. She was also given a prescription for a nebulizer and duo nebs. She will have a brief course of p.o. prednisone. She will follow up with Dr. Perdue. NSTEMI Troponin elevated Patient has chest tightness has history of smoking Patient initially started on anticoagulation and was admitted to telemetry Cardiac consult was placed and decision was made for cardiac catheterization on 11/07/2020 Cardiac cath was clean without any evidence of clotting or obstruction. Ejection fraction was markedly diminished at 20 to 25%. There was concern for Takotsubo cardiomyopathy. Nonischemic cardiomyopathy Markedly diminished ejection fraction on cardiac catheterization and on echocardiogram. Concern for Takotsubo's cardiomyopathy Coreg and statin as well as aspirin started No evidence of decompensated failure. Euvolemic. LifeVest was placed on the patient prior to discharge. She will follow up with Dr. Hernandez. Lactic acidosis Resolved after IV hydration Hyperglycemia Monitor and continue insulin sliding scale. Appears to be an initial finding that is subsequently resolved. Constipation: Added MiraLAX on 11/10/2020. 11/11/2020, no result. Added mag citrate and/or Dulcolax suppository as needed Finally had significant results on 11/12/2020 prior to discharge. Tobacco abuse: Patient was counseled regarding cessation. Sounds like she is amenable. Hyperlipidemia: Continue statin. Resuscitation Status: 11/06/20 05:05 Resuscitation Status Routine Resuscitation Status: FULL: Full Resuscitation Lab Results: 11/10/20 05:00 11/08/20 08:35 Microbiology - Entire Visit 11/06/20 03:38 Venous blood - Left Hand Blood Culture - Final NO GROWTH IN 5 DAYS 11/06/20 03:30 Venous blood - Left Arm Blood Culture - Final NO GROWTH IN 5 DAYS Vitals: Vital Signs (12 hours) Temp Pulse Resp BP BP Pulse Ox 11/12/20 14:05 80 16 94 L 11/12/20 14:00 98.4 F 93 16 117/63 92 L 11/12/20 12:00 88 18 122/68 95 11/12/20 10:33 82 16 92 L 11/12/20 10:00 97.5 F L 90 18 111/62 94 L 11/12/20 08:00 97.7 F 91 17 132/66 95 11/12/20 06:00 88 18 123/74 92 L 11/12/20 04:02 100 Weight Admit Weight 124 lb Weight 124 lb Physical Exam: The patient was seen and examined on the day of discharge. Problem (1) Acute respiratory failure with hypercapnia Code(s): J96.02 - ACUTE RESPIRATORY FAILURE WITH HYPERCAPNIA Status: Acute (2) COPD exacerbation Code(s): J44.1 - CHRONIC OBSTRUCTIVE PULMONARY DISEASE W (ACUTE) EXACERBATION Status: Acute (3) Nonischemic cardiomyopathy Code(s): I42.8 - OTHER CARDIOMYOPATHIES Status: Acute (4) NSTEMI (non-ST elevated myocardial infarction) Code(s): I21.4 - NON-ST ELEVATION (NSTEMI) MYOCARDIAL INFARCTION Status: Acute (5) Hyperlipidemia Code(s): E78.5 - HYPERLIPIDEMIA, UNSPECIFIED Status: Acute (6) Tobacco abuse Code(s): Z72.0 - TOBACCO USE Status: Acute (7) Constipation Code(s): K59.00 - CONSTIPATION, UNSPECIFIED Status: Acute Plan Prescriptions: Carvedilol [Coreg] 3.125 mg PO TID #60 tab Ipratropium/Albuterol Sulfate [Duoneb] 3 ml NEB QID PRN #30 neb PRN Reason: Sob &/Or Wheezing Furosemide [Lasix] 20 mg PO DAILY #30 tab predniSONE 20 mg PO QAM-WM #4 tab Home Medications: Medication Instructions Recorded Confirmed Type [place] Oil 500 mg PO TID 05/16/13 02/15/17 History Flaxseed Oil [Flax Seed Oil] 1,000 mg PO DAILY 05/16/13 11/06/20 History [place]-3 Fatty Acids/Fish Oil 1 cap PO DAILY 05/16/13 11/06/20 History [[place] 3 1,000 mg Softgel] Vitamin E 1,000 unit PO DAILY 05/16/13 11/06/20 History Aspirin [Ecotrin Low Strength] 81 mg PO DAILY 11/06/20 11/06/20 History Atorvastatin Calcium 40 mg PO QPM 11/06/20 11/06/20 History Ibuprofen 400 mg PO Q6HR PRN 11/06/20 11/06/20 History Omeprazole 20 mg PO DAILY 11/06/20 11/06/20 History Tiotropium [place] [Spiriva] 1 inh INH QAM 11/06/20 11/06/20 History Carvedilol [Coreg] 3.125 mg PO TID #60 tab 11/12/20 Rx Furosemide [Lasix] 20 mg PO DAILY #30 tab 11/12/20 Rx Ipratropium/Albuterol Sulfate 3 ml NEB QID PRN #30 neb 11/12/20 Rx [Duoneb] Polyethylene Glycol 3350 [Miralax] 17 gm PO DAILYPRN PRN pk 11/12/20 Rx predniSONE 20 mg PO QAM-WM #4 tab 11/12/20 Rx Allergies: No Known Allergies Allergy (Verified 11/06/20 09:09) Activity:: Activity as Tolerated Nourishment:: Heart Healthy Diet, Low Sodium Diet Therapies:: Outpatient Cardiac Rehab Referrals: Cardiac Rehab - [facility] [Outside] - 7 Days (Your doctor has ordered outpatient cardiac rehab for you to begin within 1-2 weeks after you go home from the hospital. The location nearest to you is the [facility]. We will call you in 3-5 days to get you scheduled for your evaluation. If you do not receive a call, please reach out to us at [phone] and request an appointment.) Mikey Hernandez MD [Active] - Kahlil Perdue MD [Active] - Disposition: HOME Quality CORE MEASURES:: N/A
--- NOTE | 2020-11-12 17:00 | EKG ---
Test Reason : Blood Pressure : / mmHG Vent. Rate : 116 BPM Atrial Rate : 116 BPM P-R Int : 156 ms QRS Dur : 112 ms QT Int : 322 ms P-R-T Axes : 083 -29 067 degrees QTc Int : 447 ms Sinus tachycardia Incomplete right bundle branch block Possible Acute pericarditis Abnormal ECG Confirmed by GIOVANNI EAST ([id number]), loan expeditor FLETCHER GREEN ([id number]) on 11/12/2020 4:59:38 PM Referred By: Confirmed By:GIOVANNI EAST
== END 2020-11-12 18:00 | disposition home or self-care (01) | DRG 280 ==
LOC: ERS 02:38 → 2SE 04:29
PROVIDERS: ADMIT Student in an Organized Health Care Education/Training Program; ATTEND Internal Medicine
PROC: B2111ZZ Fluoroscopy of Multiple Coronary Arteries using Low Osmolar Contrast (ICD-10-PCS; principal; 2020-11-07)
PROC: B2151ZZ Fluoroscopy of Left Heart using Low Osmolar Contrast (ICD-10-PCS; 2020-11-07)
PROC: 4A023N7 Measurement of Cardiac Sampling and Pressure, Left Heart, Percutaneous Approach (ICD-10-PCS; 2020-11-07)
DX: I21.4 Non-ST elevation (NSTEMI) myocardial infarction (principal); J96.02 Acute respiratory failure with hypercapnia; J44.1 Chronic obstructive pulmonary disease with (acute) exacerbation; E87.2 Acidosis; I50.20 Unspecified systolic (congestive) heart failure; I51.81 Takotsubo syndrome; Z51.5 Encounter for palliative care; F32.9 Major depressive disorder, single episode, unspecified; E78.2 Mixed hyperlipidemia; R77.8 Other specified abnormalities of plasma proteins; R73.9 Hyperglycemia, unspecified; F17.210 Nicotine dependence, cigarettes, uncomplicated; E78.00 Pure hypercholesterolemia, unspecified; Z90.49 Acquired absence of other specified parts of digestive tract; Z98.890 Other specified postprocedural states; Z90.710 Acquired absence of both cervix and uterus; Z85.038 Personal history of other malignant neoplasm of large intestine; Z79.899 Other long term (current) drug therapy; Z79.51 Long term (current) use of inhaled steroids; Z79.82 Long term (current) use of aspirin; Z82.49 Family history of ischemic heart disease and other diseases of the circulatory system; Z98.49 Cataract extraction status, unspecified eye; K59.00 Constipation, unspecified; Z20.822 Contact with and (suspected) exposure to COVID-19
CPT/HCPCS: 0240U; 36415; 36416; 36600; 71045; 80048; 80053; 82553; 82805; 83036; 83605; 83880; 84145; 84484; 85014; 85018; 85025; 85049; 85347; 87040; 93005; 93010; 93306; 93458; 93798; 94640; 94660; 94760; 96365; 96367; 96375; 99152; J0456; J0694; J0696; J1644; J1650; J2001; J2250; J2405; J2720; J2920; J3010; J3490; J7050; J7512; J7620; Q9967

== ENCOUNTER 2020-12-27 10:15 | Outpatient (CLI) | payer MEDICARE | END 2020-12-27 10:16 | disposition home or self-care (01) | LOC: BICRAD 10:15 | PROVIDERS: ATTEND Internal Medicine Critical Care Medicine | DX: R06.00 Dyspnea, unspecified (principal); J98.4 Other disorders of lung; R91.8 Other nonspecific abnormal finding of lung field; Z98.890 Other specified postprocedural states | CPT/HCPCS: 71046 ==

== ENCOUNTER 2021-01-11 15:09 | Inpatient (IN) | payer MEDICARE ==
[~2021-01-11 15:09] MED LIST: Iopamidol 370 76% 100 ML VIAL ONE
[2021-01-11 17:07] LABS: #Basophils 0.1 thou/uL (0.0-0.2); #Eosinphils 0.3 thou/uL (0.0-0.7); #Lymphocytes 2.4 thou/uL (1.20-3.40); #Monocytes 0.7 thou/uL (0.11-0.59); #Neutrophils 6.3 thou/uL (1.40-6.50); %Basophils 0.6 % (0.0-1.0); %Eosinophils 3.5 % (0.0-10.0); %Lymphocytes 24.1 % (21.0-51.0); %Monocytes 7.4 % (0.0-10.0); %Neutrophils 64.4 % (42.0-75.0); Hemoglobin 15.5 g/dL (12.0-16.0); Mean Corpuscular HGB CONC 33.9 g/dL (32.0-36.0); Mean Corpuscular Hemoglobin 31.8 pg (27.0-31.0); Mean Corpuscular Volume 93.8 fL (78.0-98.0); Mean Platelet Volume 7.1 fL (7.4-10.4); Platelet Count 322 thou/uL (130-400); RBC Distribution Width 12.5 % (11.5-14.5); Red Blood Cell (RBC) Count 4.87 mill/uL (4.20-5.40); White Blood Cell (WBC) Count 9.8 thou/uL (4.8-10.8)
[2021-01-11] MEDS ORDERED: methylPREDNISolone Sod Succ/PF 125 MG/2 ML VIAL ONE (17:23)
[2021-01-11 17:34] LABS: ALT (SGPT) 18 U/L (8-55); AST (SGOT) 20 U/L (5-34); Albumin 4.1 g/dL (3.4-4.8); Alkaline Phosphatase 78 U/L (40-110); Anion Gap 17 mmol/L (10-20); BUN (Urea Nitrogen) 10 mg/dL (9.8-20.1); Bilirubin, Total 0.7 mg/dL (0.2-1.2); Calc. Creatinine Clearance 0 mL/min (70-130); Calcium 9.7 mg/dL (7.8-10.44); Carbon Dioxide 26 mmol/L (23-31); Chloride 104 mmol/L (98-107); Globulin 2.5 g/dL (2.4-3.5); Glucose 89 mg/dL (80-115); Potassium 3.9 mmol/L (3.5-5.1); Protein, Total 6.6 g/dL (5.8-8.1); Sodium 143 mmol/L (136-145)
[2021-01-11] MEDS ORDERED: Furosemide 40 MG/4 ML VIAL ONE (19:08)
[2021-01-11] MEDS ORDERED: Acetaminophen 325 MG TAB PO PRN (21:53)
[2021-01-11] MEDS ORDERED: Ondansetron PF 4 MG/2 ML Vial IVP PRN (21:53)
[2021-01-11] MEDS ORDERED: Albuterol Sulfate 2.5 mg/3 ml Neb NEB PRN (21:57)
[2021-01-11] MEDS ORDERED: Furosemide 20 MG TAB PO SCH (22:00)
[2021-01-11 23:46] VITALS: BMI 24.4
[2021-01-12 00:17] LABS: Troponin I 0.011 ng/mL (< 0.028)
[2021-01-12] MEDS: methylPREDNISolone Sod Succ 40 MG VIAL IVP SCH ×3 (05:36→22:27)
[2021-01-12] MEDS: Aspirin 81 mg Enteric Coated Tablet PO SCH (08:15)
[2021-01-12] MEDS: Furosemide 20 MG TAB PO SCH (08:16)
[2021-01-12] MEDS: Famotidine 20 MG TAB PO SCH ×2 (08:20→20:36)
[2021-01-12 08:42] LABS: #Lymphocytes 0.8 thou/uL (1.20-3.40); #Neutrophils 2.9 thou/uL (1.40-6.50); %Basophils 0.3 % (0.0-1.0); %Eosinophils 0.4 % (0.0-10.0); %Lymphocytes 22.4 % (21.0-51.0); %Monocytes 0.9 % (0.0-10.0); %Neutrophils 76.1 % (42.0-75.0); Hemoglobin 14.5 g/dL (12.0-16.0); Mean Corpuscular HGB CONC 32.8 g/dL (32.0-36.0); Mean Corpuscular Hemoglobin 30.9 pg (27.0-31.0); Mean Corpuscular Volume 94.1 fL (78.0-98.0); Mean Platelet Volume 7.2 fL (7.4-10.4); Platelet Count 303 thou/uL (130-400); RBC Distribution Width 12.6 % (11.5-14.5); Red Blood Cell (RBC) Count 4.69 mill/uL (4.20-5.40); White Blood Cell (WBC) Count 3.8 thou/uL (4.8-10.8)
[2021-01-12 09:01] LABS: Anion Gap 14 mmol/L (10-20); BUN (Urea Nitrogen) 11 mg/dL (9.8-20.1); Calc. Creatinine Clearance 68 mL/min (70-130); Calcium 9.2 mg/dL (7.8-10.44); Carbon Dioxide 30 mmol/L (23-31); Chloride 98 mmol/L (98-107); Glucose 247 mg/dL (80-115); Sodium 139 mmol/L (136-145)
[2021-01-12 09:07] LABS: Potassium 2.8 mmol/L (3.5-5.1)
[2021-01-12 09:54] LABS: SARS-CoV-2 PCR NAA for Saliva Not Detected (NotDetected)
[2021-01-12] MEDS: guaiFENesin 200 MG TAB PO SCH ×3 (15:05→20:36)
[2021-01-12] MEDS: Atorvastatin Calcium 40 MG TAB PO SCH (20:36)
[2021-01-12] MEDS: Cepastat Lozenges 1 LOZ PO PRN (23:45)
[2021-01-13] MEDS: guaiFENesin 200 MG TAB PO SCH ×6 (00:35→21:06)
[2021-01-13] MEDS: methylPREDNISolone Sod Succ 40 MG VIAL IVP SCH ×3 (05:27→21:10)
[2021-01-13] MEDS: Cepastat Lozenges 1 LOZ PO PRN ×2 (05:28→21:10)
[2021-01-13 06:36] LABS: Anion Gap 17 mmol/L (10-20); BUN (Urea Nitrogen) 8 mg/dL (9.8-20.1); Calc. Creatinine Clearance 74 mL/min (70-130); Calcium 9.3 mg/dL (7.8-10.44); Carbon Dioxide 28 mmol/L (23-31); Chloride 99 mmol/L (98-107); Glucose 143 mg/dL (80-115); Potassium 3.4 mmol/L (3.5-5.1); Sodium 141 mmol/L (136-145)
[2021-01-13 07:48] LABS: #Lymphocytes 0.9 thou/uL (1.20-3.40); #Monocytes 0.4 thou/uL (0.11-0.59); %Basophils 0.1 % (0.0-1.0); %Monocytes 2.4 % (0.0-10.0); %Neutrophils 91.5 % (42.0-75.0); Hemoglobin 14.9 g/dL (12.0-16.0); Mean Corpuscular HGB CONC 33.1 g/dL (32.0-36.0); Mean Corpuscular Hemoglobin 31.5 pg (27.0-31.0); Mean Corpuscular Volume 95.1 fL (78.0-98.0); Mean Platelet Volume 7.3 fL (7.4-10.4); Platelet Count 349 thou/uL (130-400); RBC Distribution Width 12.8 % (11.5-14.5); Red Blood Cell (RBC) Count 4.73 mill/uL (4.20-5.40); White Blood Cell (WBC) Count 15.3 thou/uL (4.8-10.8)
[2021-01-13] MEDS ORDERED: Electrolyte Replacement Protocol 1 EACH FS PRN (08:30)
[2021-01-13] MEDS ORDERED: Potassium Chloride 20 MEQ TAB PO SCH (08:45)
[2021-01-13] MEDS: Furosemide 20 MG TAB PO SCH (09:24)
[2021-01-13] MEDS ORDERED: Magnesium 2 GM/50 ML 2 GM in Premix Bag 1 BAG IVPB SCH (09:30)
[2021-01-13] MEDS: Famotidine 20 MG TAB PO SCH ×2 (09:38→21:06)
[2021-01-13] MEDS: Aspirin 81 mg Enteric Coated Tablet PO SCH (09:38)
[2021-01-13] MEDS ORDERED: Polyethylene Glycol 3350 17 GM Packet PO PRN (11:27)
[2021-01-13] MEDS: Carvedilol 3.125 MG TAB PO SCH (21:05)
[2021-01-13] MEDS: Atorvastatin Calcium 40 MG TAB PO SCH (21:05)
[2021-01-14] MEDS: guaiFENesin 200 MG TAB PO SCH ×3 (00:32→09:40)
[2021-01-14] MEDS: methylPREDNISolone Sod Succ 40 MG VIAL IVP SCH ×2 (05:50→14:14)
[2021-01-14 06:29] LABS: #Lymphocytes 1.1 thou/uL (1.20-3.40); #Monocytes 0.5 thou/uL (0.11-0.59); #Neutrophils 11.1 thou/uL (1.40-6.50); %Basophils 0.1 % (0.0-1.0); %Eosinophils 0.2 % (0.0-10.0); %Lymphocytes 8.6 % (21.0-51.0); %Monocytes 3.8 % (0.0-10.0); %Neutrophils 87.4 % (42.0-75.0); Hemoglobin 13.7 g/dL (12.0-16.0); Mean Corpuscular HGB CONC 32.4 g/dL (32.0-36.0); Mean Corpuscular Volume 95.5 fL (78.0-98.0); Mean Platelet Volume 7.5 fL (7.4-10.4); Platelet Count 298 thou/uL (130-400); Red Blood Cell (RBC) Count 4.43 mill/uL (4.20-5.40); White Blood Cell (WBC) Count 12.7 thou/uL (4.8-10.8)
[2021-01-14 06:48] LABS: Anion Gap 14 mmol/L (10-20); BUN (Urea Nitrogen) 9 mg/dL (9.8-20.1); Calc. Creatinine Clearance 73 mL/min (70-130); Calcium 8.9 mg/dL (7.8-10.44); Carbon Dioxide 28 mmol/L (23-31); Chloride 101 mmol/L (98-107); Glucose 107 mg/dL (80-115); Potassium 4.2 mmol/L (3.5-5.1); Sodium 139 mmol/L (136-145)
[2021-01-14] MEDS ORDERED: Fish Oil 1,000 MG CAP PO SCH (09:00)
[2021-01-14] MEDS: Aspirin 81 mg Enteric Coated Tablet PO SCH (09:40)
[2021-01-14] MEDS: Famotidine 20 MG TAB PO SCH (09:40)
[2021-01-14] MEDS: Carvedilol 3.125 MG TAB PO SCH (09:40)
[2021-01-14] MEDS: Furosemide 20 MG TAB PO SCH (09:41)
[2021-01-14] MEDS ORDERED: guaiFENesin 200 MG TAB PO PRN (10:38)
[2021-01-14 16:04] VITALS: BP 104/58; TEMP 97.8
== END 2021-01-14 16:12 | disposition home or self-care (01) | DRG 189 ==
LOC: ERS 15:09 → OBSVTOIN 20:02 → T4-A 20:02 → T4-B 01-13 19:02
PROVIDERS: ADMIT Internal Medicine; ATTEND Family Medicine
DX: J96.01 Acute respiratory failure with hypoxia (principal); J44.1 Chronic obstructive pulmonary disease with (acute) exacerbation; I42.8 Other cardiomyopathies; I51.81 Takotsubo syndrome; E78.5 Hyperlipidemia, unspecified; F17.210 Nicotine dependence, cigarettes, uncomplicated; E78.00 Pure hypercholesterolemia, unspecified; Z90.710 Acquired absence of both cervix and uterus; Z90.49 Acquired absence of other specified parts of digestive tract; Z85.038 Personal history of other malignant neoplasm of large intestine; I25.2 Old myocardial infarction; Z79.899 Other long term (current) drug therapy; Z82.49 Family history of ischemic heart disease and other diseases of the circulatory system
CPT/HCPCS: 36415; 36416; 71045; 71275; 80048; 80053; 83735; 83880; 84484; 85025; 87635; 93005; 94640; 96374; 96375; 96376; G0378; J1940; J2920; J2930; J3475; J7620; Q9967; U0003; U0005

== ENCOUNTER 2021-02-07 16:46 | Inpatient (IN) | payer MEDICARE ==
[2021-02-07 17:56] LABS: #Basophils 0.1 thou/uL (0.0-0.2); #Eosinphils 0.3 thou/uL (0.0-0.7); #Lymphocytes 2.3 thou/uL (1.20-3.40); #Monocytes 0.6 thou/uL (0.11-0.59); #Neutrophils 3.4 thou/uL (1.40-6.50); %Basophils 0.9 % (0.0-1.0); %Lymphocytes 34.2 % (21.0-51.0); %Monocytes 9.3 % (0.0-10.0); %Neutrophils 50.6 % (42.0-75.0); Hemoglobin 15.2 g/dL (12.0-16.0); Mean Platelet Volume 8.4 fL (7.4-10.4); Platelet Count 245 thou/uL (130-400); RBC Distribution Width 13.1 % (11.5-14.5); Red Blood Cell (RBC) Count 4.88 mill/uL (4.20-5.40); White Blood Cell (WBC) Count 6.7 thou/uL (4.8-10.8)
[2021-02-07] MEDS ORDERED: methylPREDNISolone Sod Succ/PF 125 MG/2 ML VIAL ONE (19:32)
[2021-02-07] MEDS ORDERED: Albuterol Sulfate 1.25 MG/3 ML NEB ONE (19:32)
[2021-02-07 19:37] LABS: Albumin 3.9 g/dL (3.4-4.8)
[2021-02-07 19:39] LABS: Calcium 9.4 mg/dL (7.8-10.44); Chloride 103 mmol/L (98-107); Potassium 3.2 mmol/L (3.5-5.1); Sodium 140 mmol/L (136-145)
[2021-02-07 19:40] LABS: Globulin 2.7 g/dL (2.4-3.5); Glucose 98 mg/dL (80-115); Protein, Total 6.6 g/dL (5.8-8.1)
[2021-02-07 19:41] LABS: Anion Gap 15 mmol/L (10-20); Carbon Dioxide 25 mmol/L (23-31)
[2021-02-07 19:42] LABS: Bilirubin, Total 0.6 mg/dL (0.2-1.2)
[2021-02-07 19:43] LABS: Alkaline Phosphatase 84 U/L (40-110); Calc. Creatinine Clearance 0 mL/min (70-130)
[2021-02-07 19:44] LABS: BUN (Urea Nitrogen) 6 mg/dL (9.8-20.1)
[2021-02-07 19:45] LABS: AST (SGOT) 15 U/L (5-34)
[2021-02-07 19:46] LABS: ALT (SGPT) 16 U/L (8-55)
[2021-02-07 22:09] LABS: Troponin I Less than 0.010 ng/mL (< 0.028)
[2021-02-07] MEDS ORDERED: Ondansetron PF 4 MG/2 ML Vial IVP PRN (23:00)
[2021-02-07] MEDS ORDERED: Ondansetron ODT 4 MG TAB SL PRN (23:00)
[2021-02-07] MEDS ORDERED: Acetaminophen 325 MG TAB PO PRN (23:00)
[2021-02-07 23:49] VITALS: BMI 22.8
[2021-02-08 00:21] LABS: Troponin I Less than 0.010 ng/mL (< 0.028)
[2021-02-08] MEDS ORDERED: Potassium Chloride 20 MEQ TAB PO SCH (03:30)
[2021-02-08 05:22] LABS: Anion Gap 15 mmol/L (10-20); BUN (Urea Nitrogen) 10 mg/dL (9.8-20.1); Calc. Creatinine Clearance 67 mL/min (70-130); Calcium 9.5 mg/dL (7.8-10.44); Carbon Dioxide 25 mmol/L (23-31); Chloride 101 mmol/L (98-107); Glucose 158 mg/dL (80-115); Potassium 3.5 mmol/L (3.5-5.1); Sodium 137 mmol/L (136-145)
[2021-02-08 05:40] LABS: Hemoglobin 15.6 g/dL (12.0-16.0); Lymphocytes 16 % (21-51); MDiff Complete? YES; Mean Corpuscular HGB CONC 32.7 g/dL (32.0-36.0); Mean Corpuscular Hemoglobin 30.7 pg (27.0-31.0); Mean Corpuscular Volume 94.1 fL (78.0-98.0); Mean Platelet Volume 7.1 fL (7.4-10.4); Neutrophil 84 % (42-75); Platelet Count 316 thou/uL (130-400); Platelet Morphology Comment Appears Adequate; RBC Distribution Width 12.7 % (11.5-14.5); RBC Morphology Normal; Red Blood Cell (RBC) Count 5.06 mill/uL (4.20-5.40); White Blood Cell (WBC) Count 2.1 thou/uL (4.8-10.8)
[2021-02-08] MEDS: methylPREDNISolone Sod Succ 40 MG VIAL IVP SCH ×3 (05:53→17:41)
[2021-02-08] MEDS ORDERED: Non-Formulary Item 1 EACH (Tiotropium [Spiriva Handihaler] 18 MCG Box) INH SCH (09:00)
[2021-02-08] MEDS: Enoxaparin Sodium 40 MG/0.4 ML SYRINGE SC SCH (09:14)
[2021-02-08] MEDS: Furosemide 20 MG TAB PO SCH (09:15)
[2021-02-08] MEDS: Metoprolol Tartrate 25 MG TAB PO SCH ×2 (09:15→20:58)
[2021-02-08] MEDS ORDERED: ALPRAZolam 0.25 MG TAB PO PRN (10:34)
[2021-02-08] MEDS ORDERED: Albuterol 200 PUFF (6.7GM INHALER) INH SCH (13:00)
[2021-02-08 15:38] LABS: SARS-CoV-2 PCR NAA for Saliva Not Detected (NotDetected)
[2021-02-08] MEDS ORDERED: guaiFENesin ER 600 MG TAB PO PRN (17:40)
[2021-02-08] MEDS ORDERED: Polyethylene Glycol 3350 17 GM Packet PO PRN (17:40)
[2021-02-08] MEDS: Carvedilol 3.125 MG TAB PO SCH (21:00)
[2021-02-08] MEDS: Atorvastatin Calcium 20 MG TAB PO SCH (21:01)
[2021-02-09] MEDS: methylPREDNISolone Sod Succ 40 MG VIAL IVP SCH ×2 (01:00→06:09)
[2021-02-09 05:41] LABS: #Lymphocytes 1.1 thou/uL (1.20-3.40); #Monocytes 0.3 thou/uL (0.11-0.59); %Basophils 0.2 % (0.0-1.0); %Eosinophils 0.1 % (0.0-10.0); %Lymphocytes 9.4 % (21.0-51.0); %Monocytes 2.3 % (0.0-10.0); Hemoglobin 14.6 g/dL (12.0-16.0); Mean Corpuscular HGB CONC 32.5 g/dL (32.0-36.0); Mean Corpuscular Hemoglobin 30.9 pg (27.0-31.0); Mean Platelet Volume 7.2 fL (7.4-10.4); Platelet Count 358 thou/uL (130-400); RBC Distribution Width 12.8 % (11.5-14.5); Red Blood Cell (RBC) Count 4.72 mill/uL (4.20-5.40); White Blood Cell (WBC) Count 11.3 thou/uL (4.8-10.8)
[2021-02-09 06:05] LABS: Cardiac Risk 2.5 (Less than 4.5)
[2021-02-09] MEDS: Cepastat Lozenges 1 LOZ PO PRN ×3 (06:09→20:21)
[2021-02-09] MEDS: Enoxaparin Sodium 40 MG/0.4 ML SYRINGE SC SCH (09:21)
[2021-02-09] MEDS: Furosemide 20 MG TAB PO SCH (09:22)
[2021-02-09] MEDS: Carvedilol 3.125 MG TAB PO SCH ×2 (09:22→20:21)
[2021-02-09] MEDS ORDERED: methylPREDNISolone Sod Succ 40 MG VIAL IVP SCH (10:00)
[2021-02-09] MEDS: Atorvastatin Calcium 20 MG TAB PO SCH (20:22)
[2021-02-10] MEDS ORDERED: predniSONE 20 MG TAB PO SCH (08:00)
[2021-02-10] MEDS: Furosemide 20 MG TAB PO SCH (09:04)
[2021-02-10] MEDS: Carvedilol 3.125 MG TAB PO SCH (09:04)
[2021-02-10] MEDS: Enoxaparin Sodium 40 MG/0.4 ML SYRINGE SC SCH (09:05)
[2021-02-10 15:49] VITALS: TEMP 97.7
[2021-02-10 15:50] VITALS: BP 119/60
== END 2021-02-10 16:25 | disposition home or self-care (01) | DRG 314 ==
LOC: ERS 16:46 → INTOOBSV 20:45 → 2SE 20:45 → OBSVTOIN 02-09 10:16
PROVIDERS: ADMIT Internal Medicine; ATTEND Family Medicine
DX: I51.81 Takotsubo syndrome (principal); J96.21 Acute and chronic respiratory failure with hypoxia; J44.1 Chronic obstructive pulmonary disease with (acute) exacerbation; Z66 Do not resuscitate; Z20.822 Contact with and (suspected) exposure to COVID-19; E87.6 Hypokalemia; F17.210 Nicotine dependence, cigarettes, uncomplicated; I25.5 Ischemic cardiomyopathy; E78.5 Hyperlipidemia, unspecified; F32.9 Major depressive disorder, single episode, unspecified; E78.00 Pure hypercholesterolemia, unspecified; I25.2 Old myocardial infarction; Z85.038 Personal history of other malignant neoplasm of large intestine; Z79.899 Other long term (current) drug therapy; Z79.52 Long term (current) use of systemic steroids; Z90.49 Acquired absence of other specified parts of digestive tract; Z90.710 Acquired absence of both cervix and uterus; Z82.49 Family history of ischemic heart disease and other diseases of the circulatory system; Z83.3 Family history of diabetes mellitus; Z82.5 Family history of asthma and other chronic lower respiratory diseases
CPT/HCPCS: 36415; 71045; 80048; 80053; 80061; 83880; 84484; 85007; 85025; 85027; 85379; 87635; 93005; 93306; 94640; 96372; 96374; 96376; G0378; J1650; J2920; J2930; J7512; J7620; U0003; U0005

== ENCOUNTER 2021-07-21 07:29 | Inpatient (IN) | payer MEDICARE ==
[2021-07-21] MEDS ORDERED: Magnesium 2 GM/50 ML BAG (IN WATER) ONE (08:02)
[2021-07-21 08:31] LABS: #Basophils 0.1 thou/uL (0.0-0.2); #Eosinphils 0.4 thou/uL (0.0-0.7); #Lymphocytes 3.1 thou/uL (1.20-3.40); #Monocytes 0.8 thou/uL (0.11-0.59); #Neutrophils 7.8 thou/uL (1.40-6.50); %Basophils 0.5 % (0.0-1.0); %Eosinophils 3.2 % (0.0-10.0); %Lymphocytes 25.3 % (21.0-51.0); %Monocytes 6.7 % (0.0-10.0); %Neutrophils 64.3 % (42.0-75.0); Hemoglobin 16.4 g/dL (12.0-16.0); Mean Corpuscular HGB CONC 32.3 g/dL (32.0-36.0); Mean Corpuscular Hemoglobin 31.3 pg (27.0-31.0); Mean Corpuscular Volume 96.8 fL (78.0-98.0); Mean Platelet Volume 7.2 fL (7.4-10.4); Platelet Count 336 thou/uL (130-400); Red Blood Cell (RBC) Count 5.26 mill/uL (4.20-5.40); White Blood Cell (WBC) Count 12.1 thou/uL (4.8-10.8)
[2021-07-21 08:48] LABS: ALT (SGPT) 17 U/L (8-55); AST (SGOT) 16 U/L (5-34); Albumin 4.3 g/dL (3.4-4.8); Alkaline Phosphatase 61 U/L (40-110); Anion Gap 16 mmol/L (10-20); BUN (Urea Nitrogen) 7 mg/dL (9.8-20.1); Bilirubin, Total 0.7 mg/dL (0.2-1.2); Calc. Creatinine Clearance 0 mL/min (70-130); Calcium 9.9 mg/dL (7.8-10.44); Carbon Dioxide 27 mmol/L (23-31); Chloride 102 mmol/L (98-107); Globulin 2.5 g/dL (2.4-3.5); Glucose 110 mg/dL (80-115); Potassium 3.8 mmol/L (3.5-5.1); Protein, Total 6.8 g/dL (5.8-8.1); Sodium 141 mmol/L (136-145)
[2021-07-21] MEDS ORDERED: Doxycycline 100 MG CAP PO SCH (11:45)
[2021-07-21] MEDS ORDERED: Nicotine 14 MG PATCH TD PRN (13:01)
[2021-07-21] MEDS ORDERED: Acetaminophen 325 MG TAB PO PRN (13:01)
[2021-07-21] MEDS ORDERED: Ondansetron ODT 4 MG TAB PO PRN (13:01)
[2021-07-21] MEDS ORDERED: Senokot S 8.6-50 MG TAB PO PRN (13:01)
[2021-07-21] MEDS ORDERED: hydrALAZINE 20 MG/ML VIAL SLOW IVP PRN (13:10)
[2021-07-21] MEDS ORDERED: Electrolyte Replacement Protocol 1 EACH FS SCH (13:15)
[2021-07-21] MEDS ORDERED: Enoxaparin Sodium 40 MG/0.4 ML SYRINGE SC SCH (13:15)
[2021-07-21] MEDS ORDERED: Albuterol Sulfate 2.5 mg/3 ml Neb NEB PRN (14:30)
[2021-07-21 14:40] VITALS: BMI 26.1
[2021-07-21] MEDS: methylPREDNISolone Sod Succ 40 MG VIAL IVP SCH ×2 (18:22→23:30)
[2021-07-21] MEDS: Benzonatate 100 MG CAP PO PRN (20:46)
[2021-07-21] MEDS: Atorvastatin Calcium 20 MG TAB PO SCH (20:46)
[2021-07-22 00:37] LABS: SARS-CoV-2 PCR by NAA Not Detected (NotDetected)
[2021-07-22] MEDS: methylPREDNISolone Sod Succ 40 MG VIAL IVP SCH ×4 (05:14→23:49)
[2021-07-22 06:05] LABS: #Monocytes 0.2 thou/uL (0.11-0.59); #Neutrophils 4.7 thou/uL (1.40-6.50); %Basophils 0.2 % (0.0-1.0); %Eosinophils 0.1 % (0.0-10.0); %Lymphocytes 17.2 % (21.0-51.0); %Monocytes 2.9 % (0.0-10.0); %Neutrophils 79.6 % (42.0-75.0); Hemoglobin 15.6 g/dL (12.0-16.0); Mean Corpuscular HGB CONC 32.8 g/dL (32.0-36.0); Mean Corpuscular Hemoglobin 31.6 pg (27.0-31.0); Mean Corpuscular Volume 96.4 fL (78.0-98.0); Mean Platelet Volume 7.3 fL (7.4-10.4); Platelet Count 329 thou/uL (130-400); RBC Distribution Width 12.8 % (11.5-14.5); Red Blood Cell (RBC) Count 4.92 mill/uL (4.20-5.40); White Blood Cell (WBC) Count 5.9 thou/uL (4.8-10.8)
[2021-07-22 06:29] LABS: Anion Gap 17 mmol/L (10-20); BUN (Urea Nitrogen) 15 mg/dL (9.8-20.1); Calc. Creatinine Clearance 68 mL/min (70-130); Calcium 9.4 mg/dL (7.8-10.44); Carbon Dioxide 27 mmol/L (23-31); Chloride 100 mmol/L (98-107); Glucose 163 mg/dL (80-115); Potassium 4.5 mmol/L (3.5-5.1); Sodium 139 mmol/L (136-145)
[2021-07-22] MEDS ORDERED: Magnesium 2 GM/50 ML 2 GM in Premix Bag 1 BAG IVPB SCH (08:00)
[2021-07-22] MEDS: Enoxaparin Sodium 40 MG/0.4 ML SYRINGE SC SCH (08:24)
[2021-07-22] MEDS ORDERED: Doxycycline 100 MG CAP PO SCH (09:00)
[2021-07-22] MEDS ORDERED: Polyethylene Glycol 3350 17 GM Packet PO PRN (11:38)
[2021-07-22] MEDS ORDERED: Azithromycin 500 MG in Sodium Chloride 0.9% 250 ML 250 ML IVPB SCH (14:00)
[2021-07-22] MEDS: guaiFENesin ER 600 MG TAB PO PRN (21:08)
[2021-07-22] MEDS: Atorvastatin Calcium 20 MG TAB PO SCH (21:08)
[2021-07-22] MEDS: Benzonatate 100 MG CAP PO PRN (21:08)
[2021-07-23] MEDS: methylPREDNISolone Sod Succ 40 MG VIAL IVP SCH (05:08)
[2021-07-23 05:19] LABS: Hemoglobin 14.1 g/dL (12.0-16.0); Mean Corpuscular HGB CONC 34.6 g/dL (32.0-36.0); Mean Corpuscular Hemoglobin 33.1 pg (27.0-31.0); Mean Corpuscular Volume 95.8 fL (78.0-98.0); Mean Platelet Volume 8.4 fL (7.4-10.4); Platelet Count 242 thou/uL (130-400); RBC Distribution Width 12.9 % (11.5-14.5); Red Blood Cell (RBC) Count 4.27 mill/uL (4.20-5.40); White Blood Cell (WBC) Count 14.7 thou/uL (4.8-10.8)
[2021-07-23 05:20] LABS: Band 8 % (5-11); Lymphocytes 7 % (21-51); MDiff Complete? YES; Monocytes 5 % (0-10); Neutrophil 80 % (42-75); Platelet Morphology Comment Appears Adequate
[2021-07-23 05:32] LABS: Anion Gap 15 mmol/L (10-20); BUN (Urea Nitrogen) 10 mg/dL (9.8-20.1); Calc. Creatinine Clearance 81 mL/min (70-130); Carbon Dioxide 25 mmol/L (23-31); Chloride 104 mmol/L (98-107); Glucose 126 mg/dL (80-115); Potassium 4.6 mmol/L (3.5-5.1); Sodium 139 mmol/L (136-145)
[2021-07-23] MEDS ORDERED: Magnesium 2 GM/50 ML 2 GM in Premix Bag 1 BAG IVPB SCH (08:00)
[2021-07-23] MEDS: Fish Oil 1,000 MG CAP PO SCH (08:24)
[2021-07-23] MEDS: Enoxaparin Sodium 40 MG/0.4 ML SYRINGE SC SCH (08:25)
[2021-07-23] MEDS ORDERED: Non-Formulary Item 1 EACH (Tiotropium [Spiriva Handihaler] 18 MCG Box) INH SCH (09:00)
[2021-07-23] MEDS ORDERED: predniSONE 20 MG TAB PO SCH (11:00)
[2021-07-23] MEDS: guaiFENesin ER 600 MG TAB PO PRN ×2 (11:22→20:48)
[2021-07-23] MEDS ORDERED: Azithromycin 250 MG TAB PO SCH (12:00)
[2021-07-23] MEDS: Atorvastatin Calcium 20 MG TAB PO SCH (20:48)
[2021-07-23] MEDS: Benzonatate 100 MG CAP PO PRN (20:48)
[2021-07-24 07:28] LABS: Magnesium 1.9 mg/dL (1.6-2.6)
[2021-07-24] MEDS ORDERED: predniSONE 20 MG TAB PO SCH (08:00)
[2021-07-24] MEDS: Enoxaparin Sodium 40 MG/0.4 ML SYRINGE SC SCH (08:00)
[2021-07-24] MEDS: Fish Oil 1,000 MG CAP PO SCH (08:00)
[2021-07-24] MEDS ORDERED: Magnesium 2 GM/50 ML 2 GM in Premix Bag 1 BAG IVPB SCH (08:00)
[2021-07-24 08:11] VITALS: BP 129/60; TEMP 98.1
== END 2021-07-24 10:00 | disposition home or self-care (01) | DRG 189 ==
LOC: ERS 07:29 → T4-A 11:48
PROVIDERS: ADMIT Family Medicine; ATTEND Internal Medicine
DX: J96.01 Acute respiratory failure with hypoxia (principal); J44.1 Chronic obstructive pulmonary disease with (acute) exacerbation; I51.81 Takotsubo syndrome; Z20.822 Contact with and (suspected) exposure to COVID-19; F17.210 Nicotine dependence, cigarettes, uncomplicated; I10 Essential (primary) hypertension; E78.5 Hyperlipidemia, unspecified; F32.A Depression, unspecified; Z85.038 Personal history of other malignant neoplasm of large intestine; Z90.49 Acquired absence of other specified parts of digestive tract; Z90.710 Acquired absence of both cervix and uterus; Z98.890 Other specified postprocedural states; Z99.81 Dependence on supplemental oxygen; I25.2 Old myocardial infarction; Z79.899 Other long term (current) drug therapy; Z79.51 Long term (current) use of inhaled steroids
CPT/HCPCS: 36415; 71045; 80048; 80053; 83605; 83735; 83880; 84484; 85025; 87040; 93005; 94640; 96365; J0456; J1650; J2920; J3475; J7050; J7512; J7620; U0003; U0005

== ENCOUNTER 2021-09-08 13:37 | Outpatient (CLI) | payer MEDICARE | END 2021-09-08 13:38 | disposition home or self-care (01) | LOC: BICCT 13:37 | PROVIDERS: ATTEND Family Medicine | DX: Z12.2 Encounter for screening for malignant neoplasm of respiratory organs (principal); F17.219 Nicotine dependence, cigarettes, with unspecified nicotine-induced disorders | CPT/HCPCS: 71271 ==

== ENCOUNTER 2021-09-14 13:41 | Outpatient (CLI) | payer MEDICARE | END 2021-09-14 13:42 | disposition home or self-care (01) | LOC: BICMAMMO 13:41 | PROVIDERS: ATTEND Family Medicine | DX: Z12.31 Encounter for screening mammogram for malignant neoplasm of breast (principal); Z85.038 Personal history of other malignant neoplasm of large intestine | CPT/HCPCS: 77063; 77067 ==

== ENCOUNTER 2021-10-01 17:42 | Observation (INO) | payer MEDICARE ==
[2021-10-01 19:03] LABS: #Basophils 0.1 thou/uL (0.0-0.2); #Eosinphils 0.2 thou/uL (0.0-0.7); #Lymphocytes 1.6 thou/uL (1.20-3.40); #Monocytes 0.8 thou/uL (0.11-0.59); #Neutrophils 5.8 thou/uL (1.40-6.50); %Basophils 0.7 % (0.0-1.0); %Eosinophils 2.8 % (0.0-10.0); %Lymphocytes 18.9 % (21.0-51.0); %Monocytes 8.8 % (0.0-10.0); %Neutrophils 68.7 % (42.0-75.0); Hemoglobin 15.5 g/dL (12.0-16.0); Mean Corpuscular HGB CONC 33.9 g/dL (32.0-36.0); Mean Corpuscular Volume 94.5 fL (78.0-98.0); Mean Platelet Volume 7.2 fL (7.4-10.4); Platelet Count 256 thou/uL (130-400); RBC Distribution Width 12.4 % (11.5-14.5); Red Blood Cell (RBC) Count 4.86 mill/uL (4.20-5.40); White Blood Cell (WBC) Count 8.5 thou/uL (4.8-10.8)
[2021-10-01 19:24] LABS: ALT (SGPT) 15 U/L (8-55); AST (SGOT) 19 U/L (5-34); Alkaline Phosphatase 64 U/L (40-110); Anion Gap 17 mmol/L (10-20); BUN (Urea Nitrogen) 10 mg/dL (9.8-20.1); Bilirubin, Total 0.7 mg/dL (0.2-1.2); Calc. Creatinine Clearance 0 mL/min (70-130); Calcium 9.4 mg/dL (7.8-10.44); Carbon Dioxide 23 mmol/L (23-31); Chloride 100 mmol/L (98-107); Globulin 2.7 g/dL (2.4-3.5); Glucose 91 mg/dL (80-115); Potassium 3.4 mmol/L (3.5-5.1); Protein, Total 6.7 g/dL (5.8-8.1); Sodium 137 mmol/L (136-145)
[2021-10-01] MEDS ORDERED: Magnesium 2 GM/50 ML BAG (IN WATER) ONE (19:49)
[2021-10-01 21:42] LABS: SARS-CoV-2 NAA Rapid Test Not Detected (NotDetected)
[2021-10-01] MEDS ORDERED: Potassium Chloride 20 MEQ TAB ONE (22:17)
[2021-10-01] MEDS ORDERED: Sodium Chloride 0.9% 1,000 ML IV SCH (22:45)
[2021-10-01 23:02] VITALS: BMI 24.0
[2021-10-01] MEDS ORDERED: Acetaminophen 325 MG TAB PO PRN (23:04)
[2021-10-01] MEDS ORDERED: Ondansetron PF 4 MG/2 ML Vial IVP PRN (23:04)
[2021-10-02 05:17] LABS: #Eosinphils 0.3 thou/uL (0.0-0.7); #Lymphocytes 1.9 thou/uL (1.20-3.40); #Monocytes 0.9 thou/uL (0.11-0.59); #Neutrophils 3.8 thou/uL (1.40-6.50); %Basophils 0.7 % (0.0-1.0); %Eosinophils 4.1 % (0.0-10.0); %Lymphocytes 27.6 % (21.0-51.0); %Monocytes 13.5 % (0.0-10.0); %Neutrophils 54.1 % (42.0-75.0); Hemoglobin 13.8 g/dL (12.0-16.0); Mean Corpuscular Hemoglobin 32.3 pg (27.0-31.0); Mean Platelet Volume 7.6 fL (7.4-10.4); Platelet Count 225 thou/uL (130-400); RBC Distribution Width 12.4 % (11.5-14.5); Red Blood Cell (RBC) Count 4.27 mill/uL (4.20-5.40)
[2021-10-02 05:37] LABS: Anion Gap 13 mmol/L (10-20); BUN (Urea Nitrogen) 9 mg/dL (9.8-20.1); Calc. Creatinine Clearance 72 mL/min (70-130); Calcium 8.9 mg/dL (7.8-10.44); Carbon Dioxide 28 mmol/L (23-31); Chloride 103 mmol/L (98-107); Glucose 92 mg/dL (80-115); Potassium 4.5 mmol/L (3.5-5.1); Sodium 139 mmol/L (136-145)
[2021-10-02] MEDS ORDERED: hydrALAZINE 20 MG/ML VIAL SLOW IVP PRN (06:56)
[2021-10-02] MEDS ORDERED: methylPREDNISolone Sod Succ 40 MG VIAL IVP SCH ×3 (07:15→21:00)
[2021-10-02 08:14] LABS: Magnesium 1.8 mg/dL (1.6-2.6)
[2021-10-02] MEDS: Enoxaparin Sodium 40 MG/0.4 ML SYRINGE SC SCH (08:47)
[2021-10-02] MEDS: Carvedilol 6.25 MG TAB PO SCH ×2 (08:48→22:29)
[2021-10-02] MEDS ORDERED: Lisinopril 10 MG TAB PO SCH (09:00)
[2021-10-02] MEDS ORDERED: Non-Formulary Item 1 EACH (Tiotropium [Spiriva Handihaler] 18 MCG Box) INH SCH (09:00)
[2021-10-02] MEDS ORDERED: guaiFENesin ER 600 MG TAB PO SCH (14:30)
[2021-10-02] MEDS ORDERED: Magnesium 2 GM/50 ML 2 GM in Premix Bag 1 BAG IVPB SCH (14:30)
[2021-10-02] MEDS ORDERED: Doxycycline 100 MG CAP PO SCH (14:30)
[2021-10-02] MEDS: Atorvastatin Calcium 40 MG TAB PO SCH (22:29)
[2021-10-02] MEDS: methylPREDNISolone Sod Succ 40 MG VIAL IVP SCH (22:30)
[2021-10-02] MEDS: Doxycycline 100 MG CAP PO SCH (22:50)
[2021-10-02] MEDS: guaiFENesin ER 600 MG TAB PO SCH (22:50)
[2021-10-03] MEDS: methylPREDNISolone Sod Succ 40 MG VIAL IVP SCH ×2 (04:27→14:08)
[2021-10-03] MEDS: Multivit, Therapeutic 1 TAB PO SCH (09:12)
[2021-10-03] MEDS: Carvedilol 6.25 MG TAB PO SCH ×2 (09:12→15:52)
[2021-10-03] MEDS: guaiFENesin ER 600 MG TAB PO SCH ×2 (09:12→21:40)
[2021-10-03] MEDS: Lisinopril 10 MG TAB PO SCH (09:13)
[2021-10-03] MEDS: Enoxaparin Sodium 40 MG/0.4 ML SYRINGE SC SCH ×2 (09:14→09:21)
[2021-10-03] MEDS: Doxycycline 100 MG CAP PO SCH ×2 (09:14→21:39)
[2021-10-03] MEDS ORDERED: cloNIDine 0.1 MG TAB PO PRN (12:22)
[2021-10-03] MEDS: Atorvastatin Calcium 40 MG TAB PO SCH (21:40)
[2021-10-04] MEDS ORDERED: predniSONE 20 MG TAB PO SCH (08:00)
[2021-10-04] MEDS: Carvedilol 6.25 MG TAB PO SCH (08:48)
[2021-10-04] MEDS: Lisinopril 10 MG TAB PO SCH (08:49)
[2021-10-04] MEDS: Multivit, Therapeutic 1 TAB PO SCH (08:51)
[2021-10-04] MEDS: Doxycycline 100 MG CAP PO SCH (08:52)
[2021-10-04] MEDS: guaiFENesin ER 600 MG TAB PO SCH (08:52)
[2021-10-04 11:16] VITALS: BP 123/70; TEMP 98.1
== END 2021-10-04 13:33 | disposition home or self-care (01) ==
LOC: ERS 17:42 → SURG B 21:06
PROVIDERS: ADMIT Internal Medicine; ATTEND Internal Medicine
DX: J44.1 Chronic obstructive pulmonary disease with (acute) exacerbation (principal); J96.01 Acute respiratory failure with hypoxia; E87.6 Hypokalemia; E83.42 Hypomagnesemia; I10 Essential (primary) hypertension; E78.5 Hyperlipidemia, unspecified; F17.210 Nicotine dependence, cigarettes, uncomplicated; K21.9 Gastro-esophageal reflux disease without esophagitis; I25.2 Old myocardial infarction; Z66 Do not resuscitate; Z85.038 Personal history of other malignant neoplasm of large intestine; Z79.899 Other long term (current) drug therapy; Z20.822 Contact with and (suspected) exposure to COVID-19
CPT/HCPCS: 71045; 80048; 80053; 83735; 83880; 85025 ×2; 93005; 94640 ×4; 96365; 96367; 96372; 96375; 96376 ×2; 99285; G0378 ×5; U0002; 36415; J1650; J1956; J2920; J3475; J7512; J7620

== ENCOUNTER 2021-11-17 18:55 | Emergency (ER) | payer MEDICARE ==
[2021-11-17] MEDS ORDERED: methylPREDNISolone Sod Succ/PF 125 MG/2 ML VIAL ONE (20:55)
[2021-11-17] MEDS ORDERED: Magnesium 2 GM/50 ML BAG (IN WATER) ONE (20:55)
== END 2021-11-17 23:15 | disposition home or self-care (01) ==
LOC: ERS 18:55
DX: J44.1 Chronic obstructive pulmonary disease with (acute) exacerbation (principal); I45.10 Unspecified right bundle-branch block; I49.8 Other specified cardiac arrhythmias; I10 Essential (primary) hypertension; E78.5 Hyperlipidemia, unspecified; E78.00 Pure hypercholesterolemia, unspecified; J44.9 Chronic obstructive pulmonary disease, unspecified; F17.210 Nicotine dependence, cigarettes, uncomplicated; Z85.038 Personal history of other malignant neoplasm of large intestine; Z79.899 Other long term (current) drug therapy
CPT/HCPCS: 36415; 71045; 80053; 83690; 84484; 85025; 93005; 94640; 94760; 96374; 96375; J2930; J3475; J7620

== ENCOUNTER 2022-01-29 16:14 | Emergency (ER) | payer MEDICARE ==
[2022-01-29] MEDS ORDERED: Albuterol Sulfate 2.5 mg/0.5 ml Neb ONE (16:18)
[2022-01-29] MEDS ORDERED: Magnesium 2 GM/50 ML BAG (IN WATER) ONE (16:39)
== END 2022-01-29 19:00 | disposition home or self-care (01) ==
LOC: ERS 16:14
DX: J44.1 Chronic obstructive pulmonary disease with (acute) exacerbation (principal); E78.5 Hyperlipidemia, unspecified; E78.00 Pure hypercholesterolemia, unspecified; I10 Essential (primary) hypertension; F17.210 Nicotine dependence, cigarettes, uncomplicated
CPT/HCPCS: 71045; 96374; J3475; J7611; J7620

== ENCOUNTER 2022-02-10 16:32 | Observation (INO) | payer MEDICARE ==
[2022-02-10 17:03] LABS: #Eosinphils 0.2 thou/uL (0.0-0.7); #Lymphocytes 2.1 thou/uL (1.20-3.40); #Monocytes 0.8 thou/uL (0.11-0.59); #Neutrophils 6.7 thou/uL (1.40-6.50); %Basophils 0.4 % (0.0-1.0); %Eosinophils 1.6 % (0.0-10.0); %Lymphocytes 21.7 % (21.0-51.0); %Neutrophils 68.3 % (42.0-75.0); Hemoglobin 15.2 g/dL (12.0-16.0); Mean Corpuscular HGB CONC 31.9 g/dL (32.0-36.0); Mean Corpuscular Hemoglobin 31.2 pg (27.0-31.0); Mean Corpuscular Volume 97.8 fL (78.0-98.0); Mean Platelet Volume 6.8 fL (7.4-10.4); Platelet Count 284 thou/uL (130-400); Red Blood Cell (RBC) Count 4.87 mill/uL (4.20-5.40); White Blood Cell (WBC) Count 9.9 thou/uL (4.8-10.8)
[2022-02-10 17:28] LABS: ALT (SGPT) 20 U/L (8-55); AST (SGOT) 19 U/L (5-34); Albumin 3.6 g/dL (3.4-4.8); Alkaline Phosphatase 64 U/L (40-110); Anion Gap 19 mmol/L (10-20); BUN (Urea Nitrogen) 22 mg/dL (9.8-20.1); Bilirubin, Total 1.1 mg/dL (0.2-1.2); Calc. Creatinine Clearance 0 mL/min (70-130); Calcium 8.2 mg/dL (7.8-10.44); Carbon Dioxide 20 mmol/L (23-31); Chloride 104 mmol/L (98-107); Potassium 3.9 mmol/L (3.5-5.1); Protein, Total 5.6 g/dL (5.8-8.1); Sodium 139 mmol/L (136-145)
[2022-02-10 17:36] LABS: Glucose 59 mg/dL (80-115)
[2022-02-10] MEDS ORDERED: Magnesium 2 GM/50 ML BAG (IN WATER) ONE (18:00)
[2022-02-10] MEDS ORDERED: Doxycycline 100 MG CAP PO SCH (19:15)
[2022-02-10] MEDS ORDERED: Ondansetron PF 4 MG/2 ML Vial IVP PRN (19:53)
[2022-02-10] MEDS ORDERED: Ondansetron ODT 4 MG TAB PO PRN (19:53)
[2022-02-10] MEDS ORDERED: Acetaminophen 325 MG TAB PO PRN (19:53)
[2022-02-10] MEDS ORDERED: Acetaminophen 650 MG Suppository PR PRN (19:53)
[2022-02-10 22:12] VITALS: BMI 23.2
[2022-02-11 08:13] LABS: #Lymphocytes 0.8 thou/uL (1.20-3.40); #Monocytes 0.1 thou/uL (0.11-0.59); #Neutrophils 5.3 thou/uL (1.40-6.50); %Basophils 0.7 % (0.0-1.0); %Eosinophils 0.1 % (0.0-10.0); %Lymphocytes 12.8 % (21.0-51.0); %Monocytes 1.5 % (0.0-10.0); %Neutrophils 84.9 % (42.0-75.0); Mean Corpuscular HGB CONC 31.7 g/dL (32.0-36.0); Mean Corpuscular Hemoglobin 30.9 pg (27.0-31.0); Mean Corpuscular Volume 97.2 fL (78.0-98.0); Mean Platelet Volume 6.8 fL (7.4-10.4); Platelet Count 249 thou/uL (130-400); RBC Distribution Width 12.7 % (11.5-14.5); Red Blood Cell (RBC) Count 4.52 mill/uL (4.20-5.40); White Blood Cell (WBC) Count 6.2 thou/uL (4.8-10.8)
[2022-02-11 08:27] LABS: Anion Gap 13 mmol/L (10-20); BUN (Urea Nitrogen) 12 mg/dL (9.8-20.1); Calc. Creatinine Clearance 72 mL/min (70-130); Calcium 8.3 mg/dL (7.8-10.44); Carbon Dioxide 24 mmol/L (23-31); Chloride 102 mmol/L (98-107); Glucose 160 mg/dL (80-115); Potassium 3.8 mmol/L (3.5-5.1); Sodium 135 mmol/L (136-145)
[2022-02-11] MEDS: Enoxaparin Sodium 40 MG/0.4 ML SYRINGE SC SCH (08:59)
[2022-02-11] MEDS: Doxycycline 100 MG in Sodium Chloride 0.9% 100 ML IVPB SCH ×2 (08:59→20:26)
[2022-02-11] MEDS: guaiFENesin ER 600 MG TAB PO SCH ×2 (08:59→20:26)
[2022-02-11] MEDS: Carvedilol 6.25 MG TAB PO SCH ×3 (08:59→20:26)
[2022-02-11] MEDS: methylPREDNISolone Sod Succ 40 MG VIAL IVP SCH (09:00)
[2022-02-11] MEDS: Mometasone 200 MCG/Formoterol 5 MCG 120 PUFF INHALER INH SCH (18:42)
[2022-02-11 20:14] LABS: SARS-CoV-2 PCR by NAA Not Detected (NotDetected)
[2022-02-11] MEDS ORDERED: Atorvastatin Calcium 40 MG TAB PO SCH (21:00)
[2022-02-11] MEDS ORDERED: Polyethylene Glycol 3350 17 GM Packet PO PRN (21:03)
[2022-02-12] MEDS: Mometasone 200 MCG/Formoterol 5 MCG 120 PUFF INHALER INH SCH (06:33)
[2022-02-12 07:50] VITALS: BP 109/68; TEMP 98.1
[2022-02-12] MEDS: Doxycycline 100 MG in Sodium Chloride 0.9% 100 ML IVPB SCH (08:16)
[2022-02-12] MEDS: guaiFENesin ER 600 MG TAB PO SCH (08:17)
[2022-02-12] MEDS: Enoxaparin Sodium 40 MG/0.4 ML SYRINGE SC SCH (08:17)
[2022-02-12] MEDS: Carvedilol 6.25 MG TAB PO SCH ×2 (08:17→14:56)
[2022-02-12] MEDS: methylPREDNISolone Sod Succ 40 MG VIAL IVP SCH (08:17)
== END 2022-02-12 15:00 | disposition home or self-care (01) ==
LOC: ERS 16:32 → T4-B 19:05
PROVIDERS: ADMIT Internal Medicine; ATTEND Internal Medicine
DX: J44.1 Chronic obstructive pulmonary disease with (acute) exacerbation (principal); J96.01 Acute respiratory failure with hypoxia; R53.1 Weakness; R60.0 Localized edema; E16.2 Hypoglycemia, unspecified; I11.9 Hypertensive heart disease without heart failure; E78.5 Hyperlipidemia, unspecified; F17.210 Nicotine dependence, cigarettes, uncomplicated; I08.1 Rheumatic disorders of both mitral and tricuspid valves; K21.9 Gastro-esophageal reflux disease without esophagitis; Z85.038 Personal history of other malignant neoplasm of large intestine; Z79.899 Other long term (current) drug therapy; Z20.822 Contact with and (suspected) exposure to COVID-19
CPT/HCPCS: 71045; 80048; 80053; 82962; 83880; 84484; 85025 ×2; 93005; 93306; 94640 ×6; 96365; 97116; 97139; 99285; U0003; U0005; 36415; 36416; 96372; 96375; 96376; G0378; J1650; J2920; J3475; J3490; J7620

== ENCOUNTER 2022-03-12 20:52 | Inpatient (IN) | payer MEDICARE ==
[2022-03-12] MEDS ORDERED: Magnesium 2 GM/50 ML BAG (IN WATER) ONE (21:04)
[2022-03-12 21:29] LABS: #Basophils 0.1 thou/uL (0.0-0.2); #Eosinphils 0.1 thou/uL (0.0-0.7); #Lymphocytes 2.7 thou/uL (1.20-3.40); #Monocytes 0.8 thou/uL (0.11-0.59); #Neutrophils 5.5 thou/uL (1.40-6.50); %Basophils 0.7 % (0.0-1.0); %Eosinophils 1.5 % (0.0-10.0); %Lymphocytes 29.3 % (21.0-51.0); %Monocytes 9.1 % (0.0-10.0); %Neutrophils 59.4 % (42.0-75.0); Hemoglobin 14.9 g/dL (12.0-16.0); Mean Corpuscular HGB CONC 33.3 g/dL (32.0-36.0); Mean Corpuscular Hemoglobin 32.6 pg (27.0-31.0); Mean Corpuscular Volume 97.8 fL (78.0-98.0); Mean Platelet Volume 6.8 fL (7.4-10.4); Platelet Count 329 thou/uL (130-400); RBC Distribution Width 12.8 % (11.5-14.5); Red Blood Cell (RBC) Count 4.59 mill/uL (4.20-5.40); White Blood Cell (WBC) Count 9.2 thou/uL (4.8-10.8)
[2022-03-12 21:36] LABS: Actual Bicarbonate (HCO3v) 24 mEq/L (22-28); Analyzer IN Cardio ER; Base Excess -0.7 mEq/L (-2.0 to +3.0); Calcium, Ionized (venous) 1.11 mmol/L (1.16-1.32); Chloride (VBG) 102 mmol/L (98-106); Hemoglobin (Hb) 15.6 g/dL (11.7-16.0); Potassium (VBG) 3.47 mmol/L (3.70-5.30); pH (venous) 7.39 (7.32-7.43)
[2022-03-12 21:50] LABS: ALT (SGPT) 15 U/L (8-55); AST (SGOT) 15 U/L (5-34); Albumin 3.9 g/dL (3.4-4.8); Alkaline Phosphatase 64 U/L (40-110); Anion Gap 16 mmol/L (10-20); BUN (Urea Nitrogen) 8 mg/dL (9.8-20.1); Bilirubin, Total 0.8 mg/dL (0.2-1.2); Calc. Creatinine Clearance 0 mL/min (70-130); Carbon Dioxide 24 mmol/L (23-31); Chloride 103 mmol/L (98-107); Glucose 84 mg/dL (80-115); Potassium 3.7 mmol/L (3.5-5.1); Protein, Total 5.9 g/dL (5.8-8.1); Sodium 139 mmol/L (136-145)
[2022-03-12] MEDS ORDERED: Doxycycline 100 MG CAP PO SCH (23:30)
[2022-03-12] MEDS ORDERED: Ondansetron ODT 4 MG TAB PO PRN (23:56)
[2022-03-12] MEDS ORDERED: Acetaminophen 325 MG TAB PO PRN (23:56)
[2022-03-12] MEDS ORDERED: Ondansetron PF 4 MG/2 ML Vial IVP PRN (23:56)
[2022-03-12] MEDS ORDERED: Acetaminophen 650 MG Suppository PR PRN (23:56)
[2022-03-13 00:31] VITALS: BMI 22.7
[2022-03-13 06:08] LABS: #Lymphocytes 0.8 thou/uL (1.20-3.40); #Neutrophils 3.7 thou/uL (1.40-6.50); %Basophils 0.2 % (0.0-1.0); %Eosinophils 0.3 % (0.0-10.0); %Lymphocytes 17.9 % (21.0-51.0); %Monocytes 0.4 % (0.0-10.0); %Neutrophils 81.2 % (42.0-75.0); Hemoglobin 14.9 g/dL (12.0-16.0); Mean Corpuscular HGB CONC 31.4 g/dL (32.0-36.0); Mean Corpuscular Hemoglobin 30.8 pg (27.0-31.0); Mean Corpuscular Volume 97.8 fL (78.0-98.0); Mean Platelet Volume 6.9 fL (7.4-10.4); Platelet Count 311 thou/uL (130-400); RBC Distribution Width 12.8 % (11.5-14.5); Red Blood Cell (RBC) Count 4.85 mill/uL (4.20-5.40); White Blood Cell (WBC) Count 4.5 thou/uL (4.8-10.8)
[2022-03-13 06:42] LABS: Anion Gap 14 mmol/L (10-20); BUN (Urea Nitrogen) 9 mg/dL (9.8-20.1); Calc. Creatinine Clearance 80 mL/min (70-130); Calcium 8.7 mg/dL (7.8-10.44); Carbon Dioxide 23 mmol/L (23-31); Chloride 101 mmol/L (98-107); Glucose 107 mg/dL (80-115); Potassium 3.7 mmol/L (3.5-5.1); Sodium 134 mmol/L (136-145)
[2022-03-13] MEDS: Mometasone 200 MCG/Formoterol 5 MCG 120 PUFF INHALER INH SCH ×2 (07:25→19:47)
[2022-03-13] MEDS: Enoxaparin Sodium 40 MG/0.4 ML SYRINGE SC SCH (09:22)
[2022-03-13] MEDS: methylPREDNISolone Sod Succ 40 MG VIAL IVP SCH (09:22)
[2022-03-13 11:52] LABS: SARS-CoV-2 PCR NAA for Saliva Not Detected (NotDetected)
[2022-03-14] MEDS: Mometasone 200 MCG/Formoterol 5 MCG 120 PUFF INHALER INH SCH ×2 (06:50→20:05)
[2022-03-14] MEDS: Enoxaparin Sodium 40 MG/0.4 ML SYRINGE SC SCH (08:54)
[2022-03-14] MEDS: methylPREDNISolone Sod Succ 40 MG VIAL IVP SCH (08:54)
[2022-03-15] MEDS: Mometasone 200 MCG/Formoterol 5 MCG 120 PUFF INHALER INH SCH ×2 (06:58→19:13)
[2022-03-15] MEDS: Enoxaparin Sodium 40 MG/0.4 ML SYRINGE SC SCH (08:24)
[2022-03-15] MEDS: methylPREDNISolone Sod Succ 40 MG VIAL IVP SCH (08:24)
[2022-03-15] MEDS ORDERED: predniSONE 20 MG TAB PO SCH (14:00)
[2022-03-16] MEDS: Mometasone 200 MCG/Formoterol 5 MCG 120 PUFF INHALER INH SCH (06:44)
[2022-03-16] MEDS: Enoxaparin Sodium 40 MG/0.4 ML SYRINGE SC SCH (08:27)
[2022-03-16 08:31] VITALS: BP 152/79; TEMP 97.9
[2022-03-16] MEDS ORDERED: Polyethylene Glycol 3350 17 GM Packet PO SCH (09:00)
== END 2022-03-16 13:51 | disposition home or self-care (01) | DRG 189 ==
LOC: ERS 20:52 → T4-A 23:14 → OBSVTOIN 03-14 13:37
PROVIDERS: ADMIT Internal Medicine; ATTEND Internal Medicine
DX: J96.01 Acute respiratory failure with hypoxia (principal); J44.1 Chronic obstructive pulmonary disease with (acute) exacerbation; I42.8 Other cardiomyopathies; Z20.822 Contact with and (suspected) exposure to COVID-19; E78.5 Hyperlipidemia, unspecified; I10 Essential (primary) hypertension; E78.00 Pure hypercholesterolemia, unspecified; F17.210 Nicotine dependence, cigarettes, uncomplicated; Z79.899 Other long term (current) drug therapy; Z79.51 Long term (current) use of inhaled steroids; Z85.038 Personal history of other malignant neoplasm of large intestine; Z90.89 Acquired absence of other organs
CPT/HCPCS: 36415; 71045; 80048; 80053; 82805; 84484; 85025; 93005; 94640; J1650; J1956; J2920; J3475; J7512; J7620; U0003; U0005

== ENCOUNTER 2022-03-21 03:42 | Inpatient (IN) | payer MEDICARE ==
[2022-03-21] MEDS ORDERED: Lorazepam 2 MG/ML VIAL ONE ×2 (03:45→05:37)
[2022-03-21] MEDS ORDERED: Albuterol Sulfate 2.5 mg/3 ml Neb ONE (04:08)
[2022-03-21] MEDS ORDERED: Albuterol Sulfate 2.5 mg/0.5 ml Neb ONE (04:08)
[2022-03-21 04:16] LABS: Hemoglobin 16.4 g/dL (12.0-16.0); Mean Corpuscular HGB CONC 31.2 g/dL (32.0-36.0); Mean Corpuscular Volume 99.5 fL (78.0-98.0); Mean Platelet Volume 7.4 fL (7.4-10.4); Platelet Count 298 thou/uL (130-400); RBC Distribution Width 13.5 % (11.5-14.5); Red Blood Cell (RBC) Count 5.29 mill/uL (4.20-5.40); White Blood Cell (WBC) Count 14.4 thou/uL (4.8-10.8)
[2022-03-21] MEDS ORDERED: Succinylcholine 200 MG/10 ml SYRINGE FS ONE (04:26)
[2022-03-21] MEDS ORDERED: Propofol 1,000 MG/100 ML VIAL IV ONE ×2 (04:27→04:38)
[2022-03-21 04:36] LABS: ALT (SGPT) 81 U/L (8-55); AST (SGOT) 104 U/L (5-34); Alkaline Phosphatase 97 U/L (40-110); Anion Gap 17 mmol/L (10-20); BUN (Urea Nitrogen) 12 mg/dL (9.8-20.1); Bilirubin, Total 0.8 mg/dL (0.2-1.2); Calc. Creatinine Clearance 0 mL/min (70-130); Calcium 8.8 mg/dL (7.8-10.44); Carbon Dioxide 22 mmol/L (23-31); Chloride 102 mmol/L (98-107); Estimated GFR 89; Globulin 2.8 g/dL (2.4-3.5); Glucose 142 mg/dL (80-115); Potassium 4.2 mmol/L (3.5-5.1); Protein, Total 6.8 g/dL (5.8-8.1); Sodium 137 mmol/L (136-145)
[2022-03-21 04:37] LABS: Band 3 % (5-11); Lymphocytes 12 % (21-51); MDiff Complete? YES; Monocytes 9 % (0-10); Neutrophil 76 % (42-75); Platelet Morphology Comment Appears Adequate; RBC Morphology Normal
[2022-03-21] MEDS ORDERED: cefTRIAXone\\ROCEPHIN 1 GM in Sodium Chloride 0.9% 100 ML IVPB SCH (06:30)
[2022-03-21] MEDS ORDERED: Dextrose 5 % And 0.9 % NaCl 1,000 ML IV SCH (07:00)
[2022-03-21] MEDS ORDERED: Fentanyl BOLUS 250 ML IVPB PRN (07:15)
[2022-03-21] MEDS ORDERED: Propofol BOLUS 1,000 MG/100 ML VIAL IV PRN (07:15)
[2022-03-21] MEDS ORDERED: DISCONTINUE PREVIOUS NARCOTIC PAIN MEDICATIONS AND BENZODIAZEPINES FS SCH (07:15)
[2022-03-21] MEDS ORDERED: Morphine 2 MG/ML VIAL SLOW IVP PRN (07:15)
[2022-03-21] MEDS ORDERED: Fentanyl CADD 100 ML IV SCH (07:15)
[2022-03-21] MEDS: Albuterol Sulfate 2.5 mg/3 ml Neb NEB SCH ×2 (07:25→11:03)
[2022-03-21 08:30] LABS: Lactic Acid 3.9 mmol/L (0.5-2.2)
[2022-03-21] MEDS: methylPREDNISolone Sod Succ 40 MG VIAL IVP SCH ×3 (08:40→20:36)
[2022-03-21] MEDS: Azithromycin 500 MG in Sodium Chloride 0.9% 250 ML 250 ML IVPB SCH (09:37)
[2022-03-21] MEDS ORDERED: Prevnar 13-Val Conj/PF 0.5 ML SYRINGE IM ONE (11:15)
[2022-03-21 11:39] LABS: SARS-CoV-2 NAA Rapid Test DETECTED (NotDetected)
[2022-03-21] MEDS: Propofol 1,000 MG/100 ML VIAL IV PRN ×2 (12:36→20:36)
[2022-03-21] MEDS: Lactated Ringer's 1,000 ML IV SCH ×2 (12:36→23:48)
[2022-03-21] MEDS: Budesonide 0.5 MG/2 ML NEB NEB SCH (18:59)
[2022-03-21] MEDS: Lorazepam 2 MG/ML VIAL SLOW IVP PRN (20:36)
[2022-03-22] MEDS: methylPREDNISolone Sod Succ 40 MG VIAL IVP SCH ×4 (01:16→20:21)
[2022-03-22] MEDS: cefTRIAXone\\ROCEPHIN 1 GM in Sodium Chloride 0.9% 100 ML IVPB SCH (05:14)
[2022-03-22] MEDS: Budesonide 0.5 MG/2 ML NEB NEB SCH ×2 (07:27→19:21)
[2022-03-22 07:41] LABS: Actual Bicarbonate (HCO3a) 24.1 mEq/L (22-28); Base Excess (BEa) 0.6 mEq/L (-2.0 to +3.0); Calcium, Ionized (arterial) 1.14 mmol/L (1.12-1.30); Carboxyhemoglobin (COHb) 0.4 gm% (0.0-3.0); O2 Tension (PaO2), arterial 152.2 mmHg (> 80.0); Potassium - ABG Lab 3.43 mmol/L (3.70-5.30); pH, Arterial 7.46 (7.35-7.45)
[2022-03-22 07:42] LABS: Puncture Site RRA
[2022-03-22 07:44] LABS: #Basophils 0.1 thou/uL (0.0-0.2); #Lymphocytes 1.2 thou/uL (1.20-3.40); #Monocytes 0.9 thou/uL (0.11-0.59); #Neutrophils 9.8 thou/uL (1.40-6.50); %Basophils 0.8 % (0.0-1.0); %Eosinophils 0.3 % (0.0-10.0); %Monocytes 7.7 % (0.0-10.0); %Neutrophils 81.2 % (42.0-75.0); Mean Corpuscular HGB CONC 31.8 g/dL (32.0-36.0); Mean Corpuscular Hemoglobin 31.4 pg (27.0-31.0); Mean Corpuscular Volume 98.8 fL (78.0-98.0); Mean Platelet Volume 7.5 fL (7.4-10.4); Platelet Count 236 thou/uL (130-400); RBC Distribution Width 13.1 % (11.5-14.5); Red Blood Cell (RBC) Count 4.45 mill/uL (4.20-5.40)
[2022-03-22 08:11] LABS: Anion Gap 17 mmol/L (10-20); BUN (Urea Nitrogen) 8 mg/dL (9.8-20.1); Calc. Creatinine Clearance 87 mL/min (70-130); Calcium 7.9 mg/dL (7.8-10.44); Carbon Dioxide 21 mmol/L (23-31); Chloride 104 mmol/L (98-107); Estimated GFR 102; Glucose 107 mg/dL (80-115); Potassium 4.9 mmol/L (3.5-5.1); Sodium 137 mmol/L (136-145)
[2022-03-22] MEDS ORDERED: Enoxaparin Sodium 40 MG/0.4 ML SYRINGE SC SCH (09:00)
[2022-03-22] MEDS: Azithromycin 500 MG in Sodium Chloride 0.9% 250 ML 250 ML IVPB SCH (09:43)
[2022-03-22] MEDS: Pantoprazole 40 MG VIAL IVP SCH (09:46)
[2022-03-22] MEDS: Propofol 1,000 MG/100 ML VIAL IV PRN ×2 (10:15→22:18)
[2022-03-22] MEDS: Lactated Ringer's 1,000 ML IV SCH (13:45)
[2022-03-22] MEDS ORDERED: Sodium Bicarbonate Tab 325 MG TAB PER TUBE PRN (13:45)
[2022-03-22] MEDS ORDERED: Pancrelipase DR 12,000 1 CAP FS PRN (13:45)
[2022-03-22] MEDS: Enoxaparin Sodium 30 MG/0.3 ML SYRINGE SC SCH (20:21)
[2022-03-22] MEDS: fentaNYL Citrate-0.9 % NaCl/PF 100 ML IVPB SCH (20:21)
[2022-03-22] MEDS: Lorazepam 2 MG/ML VIAL SLOW IVP PRN (22:11)
[2022-03-23] MEDS: methylPREDNISolone Sod Succ 40 MG VIAL IVP SCH ×4 (02:51→21:00)
[2022-03-23] MEDS: Lactated Ringer's 1,000 ML IV SCH ×2 (02:51→08:01)
[2022-03-23 03:39] LABS: #Basophils 0.2 thou/uL (0.0-0.2); #Lymphocytes 0.8 thou/uL (1.20-3.40); #Neutrophils 9.9 thou/uL (1.40-6.50); %Basophils 1.3 % (0.0-1.0); %Eosinophils 0.1 % (0.0-10.0); %Lymphocytes 7.1 % (21.0-51.0); %Monocytes 8.4 % (0.0-10.0); %Neutrophils 83.1 % (42.0-75.0); Mean Corpuscular Volume 97.2 fL (78.0-98.0); Mean Platelet Volume 7.3 fL (7.4-10.4); Platelet Count 213 thou/uL (130-400); RBC Distribution Width 13.1 % (11.5-14.5); Red Blood Cell (RBC) Count 4.05 mill/uL (4.20-5.40); White Blood Cell (WBC) Count 11.9 thou/uL (4.8-10.8)
[2022-03-23 03:55] LABS: Lactic Acid 1.5 mmol/L (0.5-2.2)
[2022-03-23 04:08] LABS: Anion Gap 14 mmol/L (10-20); BUN (Urea Nitrogen) 12 mg/dL (9.8-20.1); Calc. Creatinine Clearance 94 mL/min (70-130); Calcium 8.1 mg/dL (7.8-10.44); Carbon Dioxide 25 mmol/L (23-31); Chloride 104 mmol/L (98-107); Estimated GFR 104; Glucose 147 mg/dL (80-115); Potassium 3.8 mmol/L (3.5-5.1); Sodium 139 mmol/L (136-145)
[2022-03-23] MEDS: cefTRIAXone\\ROCEPHIN 1 GM in Sodium Chloride 0.9% 100 ML IVPB SCH (06:00)
[2022-03-23 07:09] LABS: Actual Bicarbonate (HCO3a) 26.8 mEq/L (22-28); Base Excess (BEa) 3.8 mEq/L (-2.0 to +3.0); CO2 Tension 35.1 mmHg (35.0-45.0); Calcium, Ionized (arterial) 1.15 mmol/L (1.12-1.30); Carboxyhemoglobin (COHb) 0.1 gm% (0.0-3.0); Hemoglobin (Hb) 12.9 g/dL (12.0-16.0); O2 Tension (PaO2), arterial 150.3 mmHg (> 80.0); Potassium - ABG Lab 3.22 mmol/L (3.70-5.30)
[2022-03-23] MEDS: Budesonide 0.5 MG/2 ML NEB NEB SCH ×2 (07:13→19:05)
[2022-03-23 07:27] LABS: ALV-art Gradient 91.025 mmHg (0-20); Puncture Site RRA
[2022-03-23] MEDS: fentaNYL Citrate-0.9 % NaCl/PF 100 ML IVPB SCH (08:01)
[2022-03-23] MEDS: Azithromycin 500 MG in Sodium Chloride 0.9% 250 ML 250 ML IVPB SCH (09:09)
[2022-03-23] MEDS: Pantoprazole 40 MG VIAL IVP SCH (09:10)
[2022-03-23] MEDS: Enoxaparin Sodium 30 MG/0.3 ML SYRINGE SC SCH ×2 (09:10→21:42)
[2022-03-23] MEDS: Propofol 1,000 MG/100 ML VIAL IV PRN (11:43)
[2022-03-24] MEDS: methylPREDNISolone Sod Succ 40 MG VIAL IVP SCH ×4 (02:46→20:28)
[2022-03-24] MEDS ORDERED: Fentanyl CADD 100 ML IVPB SCH (03:00)
[2022-03-24] MEDS: Fentanyl CADD 100 ML IVPB SCH ×2 (03:36→23:26)
[2022-03-24] MEDS: Lactated Ringer's 1,000 ML IV SCH ×2 (06:08→18:04)
[2022-03-24] MEDS: cefTRIAXone\\ROCEPHIN 1 GM in Sodium Chloride 0.9% 100 ML IVPB SCH (06:08)
[2022-03-24] MEDS: Budesonide 0.5 MG/2 ML NEB NEB SCH ×2 (07:09→19:13)
[2022-03-24] MEDS: Azithromycin 500 MG in Sodium Chloride 0.9% 250 ML 250 ML IVPB SCH (07:52)
[2022-03-24] MEDS: Pantoprazole 40 MG VIAL IVP SCH (07:52)
[2022-03-24] MEDS: Enoxaparin Sodium 30 MG/0.3 ML SYRINGE SC SCH ×2 (07:52→21:05)
[2022-03-24] MEDS: Propofol 1,000 MG/100 ML VIAL IV PRN (12:16)
[2022-03-24] MEDS: Lorazepam 2 MG/ML VIAL SLOW IVP PRN ×2 (12:16→22:54)
[2022-03-24] MEDS ORDERED: Fentanyl CADD 100 ML ONE (23:18)
[2022-03-25] MEDS: Propofol 1,000 MG/100 ML VIAL IV PRN ×4 (00:30→20:30)
[2022-03-25] MEDS: methylPREDNISolone Sod Succ 40 MG VIAL IVP SCH ×4 (02:51→20:30)
[2022-03-25 05:01] LABS: #Lymphocytes 0.5 thou/uL (1.20-3.40); #Monocytes 0.3 thou/uL (0.11-0.59); #Neutrophils 8.1 thou/uL (1.40-6.50); %Basophils 0.1 % (0.0-1.0); %Eosinophils 0.4 % (0.0-10.0); %Monocytes 3.5 % (0.0-10.0); Hemoglobin 12.8 g/dL (12.0-16.0); Mean Corpuscular HGB CONC 32.6 g/dL (32.0-36.0); Mean Corpuscular Hemoglobin 31.7 pg (27.0-31.0); Mean Corpuscular Volume 97.2 fL (78.0-98.0); Mean Platelet Volume 7.5 fL (7.4-10.4); Platelet Count 198 thou/uL (130-400); RBC Distribution Width 12.8 % (11.5-14.5); Red Blood Cell (RBC) Count 4.03 mill/uL (4.20-5.40)
[2022-03-25 05:05] LABS: Anion Gap 14 mmol/L (10-20); BUN (Urea Nitrogen) 13 mg/dL (9.8-20.1); CRP (Inflammatory) Less than 0.50 mg/dL (= or < 0.5); Calc. Creatinine Clearance 91 mL/min (70-130); Calcium 8.1 mg/dL (7.8-10.44); Carbon Dioxide 27 mmol/L (23-31); Chloride 102 mmol/L (98-107); Estimated GFR 103; Glucose 176 mg/dL (80-115); Potassium 3.1 mmol/L (3.5-5.1); Sodium 140 mmol/L (136-145)
[2022-03-25] MEDS: cefTRIAXone\\ROCEPHIN 1 GM in Sodium Chloride 0.9% 100 ML IVPB SCH (06:02)
[2022-03-25] MEDS: Budesonide 0.5 MG/2 ML NEB NEB SCH ×2 (07:01→19:13)
[2022-03-25] MEDS: Azithromycin 500 MG in Sodium Chloride 0.9% 250 ML 250 ML IVPB SCH (07:36)
[2022-03-25] MEDS: Enoxaparin Sodium 30 MG/0.3 ML SYRINGE SC SCH ×2 (07:37→20:30)
[2022-03-25] MEDS: Pantoprazole 40 MG VIAL IVP SCH (07:38)
[2022-03-25] MEDS ORDERED: Electrolyte Replacement Protocol 1 EACH FS SCH (08:02)
[2022-03-25] MEDS ORDERED: Magnesium Sulfate 3 GM in Sodium Chloride 0.9% 100 ML IVPB SCH (08:15)
[2022-03-25] MEDS: Potassium Chloride 20 MEQ in Premix Bag 1 BAG IVPB SCH ×2 (10:03→11:36)
[2022-03-25] MEDS: Lactated Ringer's 1,000 ML IV SCH (10:04)
[2022-03-25 17:33] LABS: Anion Gap 13 mmol/L (10-20); BUN (Urea Nitrogen) 13 mg/dL (9.8-20.1); Calc. Creatinine Clearance 92 mL/min (70-130); Calcium 7.8 mg/dL (7.8-10.44); Carbon Dioxide 27 mmol/L (23-31); Chloride 102 mmol/L (98-107); Estimated GFR 103; Glucose 160 mg/dL (80-115); Potassium 3.7 mmol/L (3.5-5.1); Sodium 138 mmol/L (136-145)
[2022-03-25] MEDS ORDERED: Fentanyl CADD 100 ML ONE (17:35)
[2022-03-25] MEDS: Fentanyl CADD 100 ML IVPB SCH (18:39)
[2022-03-26] MEDS: methylPREDNISolone Sod Succ 40 MG VIAL IVP SCH ×4 (02:25→19:59)
[2022-03-26] MEDS: Lactated Ringer's 1,000 ML IV SCH (02:32)
[2022-03-26 04:33] LABS: #Lymphocytes 0.5 thou/uL (1.20-3.40); #Monocytes 0.5 thou/uL (0.11-0.59); #Neutrophils 9.1 thou/uL (1.40-6.50); %Basophils 0.1 % (0.0-1.0); %Eosinophils 0.2 % (0.0-10.0); %Monocytes 4.6 % (0.0-10.0); %Neutrophils 90.1 % (42.0-75.0); Mean Corpuscular HGB CONC 32.6 g/dL (32.0-36.0); Mean Corpuscular Hemoglobin 31.9 pg (27.0-31.0); Mean Corpuscular Volume 97.6 fL (78.0-98.0); Mean Platelet Volume 7.7 fL (7.4-10.4); Platelet Count 201 thou/uL (130-400); RBC Distribution Width 12.7 % (11.5-14.5); Red Blood Cell (RBC) Count 3.78 mill/uL (4.20-5.40); White Blood Cell (WBC) Count 10.1 thou/uL (4.8-10.8)
[2022-03-26 04:54] LABS: Anion Gap 11 mmol/L (10-20); BUN (Urea Nitrogen) 14 mg/dL (9.8-20.1); CRP (Inflammatory) Less than 0.50 mg/dL (= or < 0.5); Calc. Creatinine Clearance 103 mL/min (70-130); Calcium 7.9 mg/dL (7.8-10.44); Carbon Dioxide 28 mmol/L (23-31); Chloride 102 mmol/L (98-107); Estimated GFR 106; Glucose 141 mg/dL (80-115); Potassium 3.5 mmol/L (3.5-5.1); Sodium 137 mmol/L (136-145)
[2022-03-26] MEDS: cefTRIAXone\\ROCEPHIN 1 GM in Sodium Chloride 0.9% 100 ML IVPB SCH (05:10)
[2022-03-26] MEDS: Propofol 1,000 MG/100 ML VIAL IV PRN (07:35)
[2022-03-26] MEDS: Pantoprazole 40 MG VIAL IVP SCH (07:35)
[2022-03-26] MEDS: Enoxaparin Sodium 30 MG/0.3 ML SYRINGE SC SCH ×2 (07:35→20:02)
[2022-03-26] MEDS: Azithromycin 500 MG in Sodium Chloride 0.9% 250 ML 250 ML IVPB SCH (07:36)
[2022-03-26] MEDS: Budesonide 0.5 MG/2 ML NEB NEB SCH ×2 (07:37→19:23)
[2022-03-26] MEDS: Potassium Chloride 20 MEQ in Premix Bag 1 BAG IVPB SCH ×2 (07:37→09:43)
[2022-03-26] MEDS: Lorazepam 2 MG/ML VIAL SLOW IVP PRN ×2 (09:43→23:37)
[2022-03-26] MEDS ORDERED: Fentanyl CADD 100 ML ONE (12:51)
[2022-03-26] MEDS: Fentanyl CADD 100 ML IVPB SCH (12:56)
[2022-03-26] MEDS ORDERED: Furosemide 40 MG/4 ML VIAL SLOW IVP SCH (16:00)
[2022-03-26 18:13] LABS: Anion Gap 15 mmol/L (10-20); BUN (Urea Nitrogen) 16 mg/dL (9.8-20.1); Calc. Creatinine Clearance 87 mL/min (70-130); Calcium 8.3 mg/dL (7.8-10.44); Carbon Dioxide 27 mmol/L (23-31); Chloride 99 mmol/L (98-107); Estimated GFR 102; Glucose 161 mg/dL (80-115); Sodium 137 mmol/L (136-145)
[2022-03-27] MEDS: methylPREDNISolone Sod Succ 40 MG VIAL IVP SCH ×4 (01:46→20:36)
[2022-03-27 04:21] LABS: Anion Gap 12 mmol/L (10-20); BUN (Urea Nitrogen) 21 mg/dL (9.8-20.1); Calc. Creatinine Clearance 90 mL/min (70-130); Calcium 8.4 mg/dL (7.8-10.44); Carbon Dioxide 29 mmol/L (23-31); Chloride 101 mmol/L (98-107); Estimated GFR 103; Glucose 151 mg/dL (80-115); Sodium 138 mmol/L (136-145)
[2022-03-27 05:10] LABS: Band 12 % (5-11); Hemoglobin 12.7 g/dL (12.0-16.0); Lymphocytes 10 % (21-51); MDiff Complete? YES; Mean Corpuscular HGB CONC 32.8 g/dL (32.0-36.0); Mean Corpuscular Volume 97.4 fL (78.0-98.0); Mean Platelet Volume 7.6 fL (7.4-10.4); Monocytes 5 % (0-10); Neutrophil 73 % (42-75); Platelet Count 210 thou/uL (130-400); RBC Distribution Width 12.8 % (11.5-14.5); Red Blood Cell (RBC) Count 3.97 mill/uL (4.20-5.40); White Blood Cell (WBC) Count 12.7 thou/uL (4.8-10.8)
[2022-03-27] MEDS: cefTRIAXone\\ROCEPHIN 1 GM in Sodium Chloride 0.9% 100 ML IVPB SCH (06:22)
[2022-03-27] MEDS: Budesonide 0.5 MG/2 ML NEB NEB SCH ×2 (06:52→19:16)
[2022-03-27] MEDS: Enoxaparin Sodium 30 MG/0.3 ML SYRINGE SC SCH ×2 (08:42→20:36)
[2022-03-27] MEDS: Pantoprazole 40 MG VIAL IVP SCH (08:42)
[2022-03-27] MEDS: Polyethylene Glycol 3350 17 GM Packet PER TUBE SCH (08:42)
[2022-03-27] MEDS ORDERED: Fentanyl CADD 100 ML ONE (13:01)
[2022-03-27] MEDS: Fentanyl CADD 100 ML IVPB SCH (13:04)
[2022-03-27] MEDS: Propofol 1,000 MG/100 ML VIAL IV PRN (14:13)
[2022-03-27] MEDS ORDERED: Midazolam HCl 2 mg/2 ml Vial SLOW IVP PRN (16:45)
[2022-03-27] MEDS ORDERED: Lorazepam 2 MG/ML VIAL SLOW IVP PRN (16:45)
[2022-03-28] MEDS: methylPREDNISolone Sod Succ 40 MG VIAL IVP SCH ×3 (02:37→20:30)
[2022-03-28] MEDS: Propofol 1,000 MG/100 ML VIAL IV PRN ×2 (03:28→08:23)
[2022-03-28 04:14] LABS: #Lymphocytes 0.8 thou/uL (1.20-3.40); #Monocytes 0.6 thou/uL (0.11-0.59); #Neutrophils 13.5 thou/uL (1.40-6.50); %Basophils 0.2 % (0.0-1.0); %Eosinophils 0.3 % (0.0-10.0); %Lymphocytes 5.2 % (21.0-51.0); %Monocytes 3.7 % (0.0-10.0); %Neutrophils 90.6 % (42.0-75.0); Hemoglobin 12.6 g/dL (12.0-16.0); Mean Corpuscular HGB CONC 33.6 g/dL (32.0-36.0); Mean Corpuscular Hemoglobin 32.3 pg (27.0-31.0); Mean Platelet Volume 7.3 fL (7.4-10.4); Platelet Count 232 thou/uL (130-400); RBC Distribution Width 12.8 % (11.5-14.5); White Blood Cell (WBC) Count 14.9 thou/uL (4.8-10.8)
[2022-03-28 04:46] LABS: Anion Gap 11 mmol/L (10-20); BUN (Urea Nitrogen) 19 mg/dL (9.8-20.1); Calc. Creatinine Clearance 96 mL/min (70-130); Calcium 8.5 mg/dL (7.8-10.44); Carbon Dioxide 30 mmol/L (23-31); Chloride 99 mmol/L (98-107); Estimated GFR 104; Glucose 144 mg/dL (80-115); Potassium 3.8 mmol/L (3.5-5.1); Sodium 136 mmol/L (136-145)
[2022-03-28] MEDS: cefTRIAXone\\ROCEPHIN 1 GM in Sodium Chloride 0.9% 100 ML IVPB SCH (05:38)
[2022-03-28] MEDS: Budesonide 0.5 MG/2 ML NEB NEB SCH ×2 (06:57→18:45)
[2022-03-28 07:52] LABS: Base Excess (BEa) 4.1 mEq/L (-2.0 to +3.0); CO2 Tension 34.4 mmHg (35.0-45.0); Calcium, Ionized (arterial) 1.14 mmol/L (1.12-1.30); Hemoglobin (Hb) 12.5 g/dL (12.0-16.0); O2 Tension (PaO2), arterial 158.8 mmHg (> 80.0); Potassium - ABG Lab 3.93 mmol/L (3.70-5.30); pH, Arterial 7.51 (7.35-7.45)
[2022-03-28] MEDS: Pantoprazole 40 MG VIAL IVP SCH (08:20)
[2022-03-28] MEDS: Enoxaparin Sodium 30 MG/0.3 ML SYRINGE SC SCH ×2 (08:20→20:30)
[2022-03-28] MEDS: Polyethylene Glycol 3350 17 GM Packet PER TUBE SCH (08:23)
[2022-03-28 08:56] LABS: Puncture Site LRA
[2022-03-29] MEDS: cefTRIAXone\\ROCEPHIN 1 GM in Sodium Chloride 0.9% 100 ML IVPB SCH (05:02)
[2022-03-29 05:26] LABS: #Monocytes 0.8 thou/uL (0.11-0.59); %Basophils 0.3 % (0.0-1.0); %Eosinophils 0.3 % (0.0-10.0); %Lymphocytes 8.6 % (21.0-51.0); %Monocytes 6.9 % (0.0-10.0); %Neutrophils 83.9 % (42.0-75.0); Mean Corpuscular HGB CONC 32.7 g/dL (32.0-36.0); Mean Corpuscular Volume 97.9 fL (78.0-98.0); Platelet Count 239 thou/uL (130-400); Red Blood Cell (RBC) Count 3.76 mill/uL (4.20-5.40); White Blood Cell (WBC) Count 11.9 thou/uL (4.8-10.8)
[2022-03-29 05:55] LABS: Anion Gap 10 mmol/L (10-20); BUN (Urea Nitrogen) 22 mg/dL (9.8-20.1); Calc. Creatinine Clearance 100 mL/min (70-130); Calcium 8.4 mg/dL (7.8-10.44); Carbon Dioxide 32 mmol/L (23-31); Chloride 102 mmol/L (98-107); Estimated GFR 105; Glucose 97 mg/dL (80-115); Potassium 3.8 mmol/L (3.5-5.1); Sodium 140 mmol/L (136-145)
[2022-03-29] MEDS: Budesonide 0.5 MG/2 ML NEB NEB SCH ×2 (06:35→21:13)
[2022-03-29] MEDS: methylPREDNISolone Sod Succ 40 MG VIAL IVP SCH (08:09)
[2022-03-29] MEDS: Enoxaparin Sodium 30 MG/0.3 ML SYRINGE SC SCH ×2 (08:09→20:56)
[2022-03-29] MEDS: Polyethylene Glycol 3350 17 GM Packet PER TUBE SCH (08:09)
[2022-03-29] MEDS ORDERED: Lansoprazole 3 MG/ML ORAL SUSPENSION PER TUBE SCH (09:00)
[2022-03-29] MEDS: Ipratropium/Albuterol Sulfate 4 GM AER IH SCH ×2 (12:08→18:08)
[2022-03-29] MEDS ORDERED: hydrALAZINE 20 MG/ML VIAL SLOW IVP PRN (17:58)
[2022-03-29] MEDS ORDERED: Mometasone 100 MCG/PUFF (1 INHALER) INH SCH (21:15)
[2022-03-30] MEDS: Ipratropium/Albuterol Sulfate 4 GM AER IH SCH ×4 (01:54→19:01)
[2022-03-30 05:53] LABS: #Eosinphils 0.1 thou/uL (0.0-0.7); #Lymphocytes 1.9 thou/uL (1.20-3.40); #Monocytes 0.7 thou/uL (0.11-0.59); #Neutrophils 10.7 thou/uL (1.40-6.50); %Basophils 0.1 % (0.0-1.0); %Eosinophils 0.6 % (0.0-10.0); %Lymphocytes 14.1 % (21.0-51.0); %Monocytes 5.4 % (0.0-10.0); %Neutrophils 79.8 % (42.0-75.0); Hemoglobin 13.7 g/dL (12.0-16.0); Mean Corpuscular HGB CONC 31.8 g/dL (32.0-36.0); Mean Corpuscular Hemoglobin 31.8 pg (27.0-31.0); Platelet Count 257 thou/uL (130-400); RBC Distribution Width 12.8 % (11.5-14.5); Red Blood Cell (RBC) Count 4.31 mill/uL (4.20-5.40); White Blood Cell (WBC) Count 13.4 thou/uL (4.8-10.8)
[2022-03-30] MEDS: Mometasone 100 MCG/PUFF (1 INHALER) INH SCH ×2 (06:08→17:35)
[2022-03-30 06:28] LABS: Anion Gap 13 mmol/L (10-20); BUN (Urea Nitrogen) 16 mg/dL (9.8-20.1); Calc. Creatinine Clearance 90 mL/min (70-130); Calcium 8.2 mg/dL (7.8-10.44); Carbon Dioxide 27 mmol/L (23-31); Chloride 102 mmol/L (98-107); Estimated GFR 103; Glucose 60 mg/dL (80-115); Potassium 3.4 mmol/L (3.5-5.1); Sodium 139 mmol/L (136-145)
[2022-03-30] MEDS: predniSONE 20 MG TAB PO SCH (08:35)
[2022-03-30] MEDS: Enoxaparin Sodium 30 MG/0.3 ML SYRINGE SC SCH ×2 (08:35→21:16)
[2022-03-30] MEDS ORDERED: Carvedilol 6.25 MG TAB PO SCH (21:00)
[2022-03-30] MEDS: Carvedilol 6.25 MG TAB PO SCH (21:16)
[2022-03-30] MEDS: Atorvastatin Calcium 40 MG TAB PO SCH (21:16)
[2022-03-31] MEDS: Ipratropium/Albuterol Sulfate 4 GM AER IH SCH ×4 (02:00→18:21)
[2022-03-31] MEDS: Mometasone 100 MCG/PUFF (1 INHALER) INH SCH ×2 (05:47→18:21)
[2022-03-31 07:11] LABS: #Eosinphils 0.1 thou/uL (0.0-0.7); #Lymphocytes 1.6 thou/uL (1.20-3.40); #Monocytes 0.8 thou/uL (0.11-0.59); #Neutrophils 8.3 thou/uL (1.40-6.50); %Basophils 0.1 % (0.0-1.0); %Lymphocytes 15.1 % (21.0-51.0); %Monocytes 7.2 % (0.0-10.0); %Neutrophils 76.6 % (42.0-75.0); Hemoglobin 13.5 g/dL (12.0-16.0); Mean Corpuscular HGB CONC 32.4 g/dL (32.0-36.0); Mean Corpuscular Hemoglobin 31.7 pg (27.0-31.0); Mean Platelet Volume 6.9 fL (7.4-10.4); Platelet Count 261 thou/uL (130-400); RBC Distribution Width 12.8 % (11.5-14.5); Red Blood Cell (RBC) Count 4.26 mill/uL (4.20-5.40); White Blood Cell (WBC) Count 10.8 thou/uL (4.8-10.8)
[2022-03-31 07:32] LABS: Anion Gap 10 mmol/L (10-20); BUN (Urea Nitrogen) 11 mg/dL (9.8-20.1); CRP (Inflammatory) 1.48 mg/dL (= or < 0.5); Calc. Creatinine Clearance 99 mL/min (70-130); Calcium 8.5 mg/dL (7.8-10.44); Carbon Dioxide 32 mmol/L (23-31); Chloride 100 mmol/L (98-107); Estimated GFR 106; Glucose 82 mg/dL (80-115); Potassium 3.6 mmol/L (3.5-5.1); Sodium 138 mmol/L (136-145)
[2022-03-31] MEDS: Enoxaparin Sodium 30 MG/0.3 ML SYRINGE SC SCH ×2 (08:43→21:18)
[2022-03-31] MEDS: Carvedilol 6.25 MG TAB PO SCH ×2 (08:43→21:18)
[2022-03-31] MEDS: predniSONE 20 MG TAB PO SCH (08:44)
[2022-03-31] MEDS: Atorvastatin Calcium 40 MG TAB PO SCH (21:18)
[2022-04-01] MEDS: Ipratropium/Albuterol Sulfate 4 GM AER IH SCH ×4 (01:36→18:07)
[2022-04-01] MEDS: Mometasone 100 MCG/PUFF (1 INHALER) INH SCH ×2 (05:58→18:06)
[2022-04-01] MEDS: Carvedilol 6.25 MG TAB PO SCH ×2 (08:21→21:03)
[2022-04-01] MEDS: Enoxaparin Sodium 30 MG/0.3 ML SYRINGE SC SCH ×2 (08:22→21:03)
[2022-04-01] MEDS: predniSONE 20 MG TAB PO SCH (08:22)
[2022-04-01] MEDS: Atorvastatin Calcium 40 MG TAB PO SCH (21:03)
[2022-04-02] MEDS: Ipratropium/Albuterol Sulfate 4 GM AER IH SCH ×4 (00:39→21:22)
[2022-04-02] MEDS: Mometasone 100 MCG/PUFF (1 INHALER) INH SCH ×2 (06:12→19:36)
[2022-04-02] MEDS: Carvedilol 6.25 MG TAB PO SCH ×2 (10:45→21:23)
[2022-04-02] MEDS: predniSONE 20 MG TAB PO SCH (10:46)
[2022-04-02] MEDS: Enoxaparin Sodium 30 MG/0.3 ML SYRINGE SC SCH ×2 (10:46→21:24)
[2022-04-02] MEDS: Atorvastatin Calcium 40 MG TAB PO SCH (21:23)
[2022-04-03] MEDS: Ipratropium/Albuterol Sulfate 4 GM AER IH SCH ×4 (02:21→18:33)
[2022-04-03] MEDS: Mometasone 100 MCG/PUFF (1 INHALER) INH SCH ×2 (06:08→18:32)
[2022-04-03 08:27] VITALS: BMI 22.8
[2022-04-03] MEDS: Carvedilol 6.25 MG TAB PO SCH ×2 (09:02→20:47)
[2022-04-03] MEDS: predniSONE 20 MG TAB PO SCH (09:02)
[2022-04-03] MEDS: Enoxaparin Sodium 30 MG/0.3 ML SYRINGE SC SCH ×2 (09:03→20:47)
[2022-04-03] MEDS: Atorvastatin Calcium 40 MG TAB PO SCH (20:47)
[2022-04-04] MEDS: Ipratropium/Albuterol Sulfate 4 GM AER IH SCH ×3 (00:19→14:19)
[2022-04-04 06:05] LABS: #Eosinphils 0.1 thou/uL (0.0-0.7); #Lymphocytes 2.5 thou/uL (1.20-3.40); #Monocytes 0.9 thou/uL (0.11-0.59); %Basophils 0.4 % (0.0-1.0); %Eosinophils 0.9 % (0.0-10.0); %Lymphocytes 23.3 % (21.0-51.0); %Monocytes 8.9 % (0.0-10.0); %Neutrophils 66.5 % (42.0-75.0); Hemoglobin 12.3 g/dL (12.0-16.0); Mean Corpuscular HGB CONC 32.2 g/dL (32.0-36.0); Mean Corpuscular Hemoglobin 31.3 pg (27.0-31.0); Mean Corpuscular Volume 97.2 fL (78.0-98.0); Mean Platelet Volume 6.6 fL (7.4-10.4); Platelet Count 264 thou/uL (130-400); RBC Distribution Width 12.9 % (11.5-14.5); Red Blood Cell (RBC) Count 3.91 mill/uL (4.20-5.40); White Blood Cell (WBC) Count 10.6 thou/uL (4.8-10.8)
[2022-04-04] MEDS: Mometasone 100 MCG/PUFF (1 INHALER) INH SCH (06:16)
[2022-04-04 06:22] LABS: Phosphorus 2.6 mg/dL (2.3-4.7)
[2022-04-04 06:25] LABS: Anion Gap 11 mmol/L (10-20); BUN (Urea Nitrogen) 8 mg/dL (9.8-20.1); Calc. Creatinine Clearance 93 mL/min (70-130); Calcium 8.6 mg/dL (7.8-10.44); Carbon Dioxide 27 mmol/L (23-31); Chloride 103 mmol/L (98-107); Estimated GFR 104; Glucose 81 mg/dL (80-115); Magnesium 1.8 mg/dL (1.6-2.6); Potassium 3.3 mmol/L (3.5-5.1); Sodium 138 mmol/L (136-145)
[2022-04-04] MEDS ORDERED: Potassium Chloride 20 MEQ TAB PO SCH (08:15)
[2022-04-04] MEDS ORDERED: Magnesium 2 GM/50 ML(in water) 2 GM in Premix Bag 1 BAG IVPB SCH (08:15)
[2022-04-04] MEDS: Enoxaparin Sodium 30 MG/0.3 ML SYRINGE SC SCH (08:48)
[2022-04-04] MEDS: Carvedilol 6.25 MG TAB PO SCH (08:49)
[2022-04-04] MEDS: predniSONE 20 MG TAB PO SCH (08:49)
[2022-04-04 14:19] VITALS: BP 145/79; TEMP 97.6
== END 2022-04-04 14:27 | DRG 870 ==
LOC: ERS 03:42 → CCU 05:24 → T4-A 03-29 10:23
PROVIDERS: ADMIT Internal Medicine; ATTEND Internal Medicine
PROC: 5A1955Z Respiratory Ventilation, Greater than 96 Consecutive Hours (ICD-10-PCS; principal; 2022-03-21)
PROC: 0BH18EZ Insertion of Endotracheal Airway into Trachea, Via Natural or Artificial Opening Endoscopic (ICD-10-PCS; 2022-03-21)
PROC: 0D9670Z Drainage of Stomach with Drainage Device, Via Natural or Artificial Opening (ICD-10-PCS; 2022-03-21)
PROC: 3E03329 Introduction of Other Anti-infective into Peripheral Vein, Percutaneous Approach (ICD-10-PCS; 2022-03-21)
PROC: 8E0ZXY6 Isolation (ICD-10-PCS; 2022-03-21)
PROC: 5A09357 Assistance with Respiratory Ventilation, Less than 24 Consecutive Hours, Continuous Positive Airway Pressure (ICD-10-PCS; 2022-03-21)
DX: A41.9 Sepsis, unspecified organism (principal); J96.01 Acute respiratory failure with hypoxia; U07.1 COVID-19; J12.82 Pneumonia due to coronavirus disease 2019; J96.02 Acute respiratory failure with hypercapnia; I51.81 Takotsubo syndrome; J44.1 Chronic obstructive pulmonary disease with (acute) exacerbation; I42.8 Other cardiomyopathies; J90 Pleural effusion, not elsewhere classified; J98.11 Atelectasis; J45.902 Unspecified asthma with status asthmaticus; J44.0 Chronic obstructive pulmonary disease with (acute) lower respiratory infection; E78.5 Hyperlipidemia, unspecified; R65.20 Severe sepsis without septic shock; E78.00 Pure hypercholesterolemia, unspecified; I12.9 Hypertensive chronic kidney disease with stage 1 through stage 4 chronic kidney disease, or unspecified chronic kidney disease; F32.A Depression, unspecified; F17.210 Nicotine dependence, cigarettes, uncomplicated; K21.9 Gastro-esophageal reflux disease without esophagitis; D75.1 Secondary polycythemia; E87.6 Hypokalemia; N18.2 Chronic kidney disease, stage 2 (mild); Z90.49 Acquired absence of other specified parts of digestive tract; Z90.710 Acquired absence of both cervix and uterus; Z98.890 Other specified postprocedural states; Z78.1 Physical restraint status; Z79.899 Other long term (current) drug therapy
CPT/HCPCS: 31500; 36415; 36416; 36600; 51702; 71045; 72170; 74230; 80048; 80053; 82728; 82805; 83605; 83735; 83880; 84100; 84145; 84484; 85025; 85379; 86140; 87040; 87070; 87205; 93005; 94002; 94003; 94640; 94660; 96374; 96375; 96376; C9113; J0456; J0696; J1650; J1940; J2060; J2270; J2704; J2920; J3010; J3475; J3480; J3490; J7042; J7050; J7120; J7512; J7611; J7620; J7626; U0002

== ENCOUNTER 2022-05-07 12:40 | Outpatient (CLI) | payer MEDICARE | END 2022-05-07 12:41 | disposition home or self-care (01) | LOC: BICRAD 12:40 | PROVIDERS: ATTEND Family Medicine | DX: M53.3 Sacrococcygeal disorders, not elsewhere classified (principal); Q76.49 Other congenital malformations of spine, not associated with scoliosis; M51.36 Other intervertebral disc degeneration, lumbar region | CPT/HCPCS: 72202 ==

== ENCOUNTER 2022-05-21 14:13 | Outpatient (CLI) | payer MEDICARE | END 2022-05-21 14:14 | disposition home or self-care (01) | LOC: BICULT 14:13 | PROVIDERS: ATTEND Family Medicine | DX: N32.89 Other specified disorders of bladder (principal) | CPT/HCPCS: 76856 ==

== ENCOUNTER 2022-07-22 14:39 | Inpatient (IN) | payer MEDICARE ==
[2022-07-22] MEDS ORDERED: Ipratropium Bromide 2.5 ml Neb ONE (14:52)
[2022-07-22] MEDS ORDERED: Albuterol Sulfate 2.5 mg/3 ml Neb ONE (14:52)
[2022-07-22] MEDS ORDERED: methylPREDNISolone Sod Succ/PF 125 MG/2 ML VIAL ONE (14:53)
[2022-07-22] MEDS ORDERED: Albuterol Sulfate 2.5 mg/0.5 ml Neb ONE (14:57)
[2022-07-22 15:29] LABS: #Basophils 0.1 thou/uL (0.0-0.2); #Eosinphils 0.3 thou/uL (0.0-0.7); #Lymphocytes 2.2 thou/uL (1.20-3.40); #Monocytes 0.7 thou/uL (0.11-0.59); #Neutrophils 4.7 thou/uL (1.40-6.50); %Basophils 1.2 % (0.0-1.0); %Eosinophils 3.4 % (0.0-10.0); %Monocytes 8.4 % (0.0-10.0); %Neutrophils 58.9 % (42.0-75.0); Hemoglobin 15.1 g/dL (12.0-16.0); Mean Corpuscular HGB CONC 33.2 g/dL (32.0-36.0); Mean Corpuscular Hemoglobin 30.9 pg (27.0-31.0); Mean Corpuscular Volume 93.1 fl (78.0-98.0); Mean Platelet Volume 6.8 fL (7.4-10.4); Platelet Count 323 thou/uL (130-400); RBC Distribution Width 12.7 % (11.5-14.5); Red Blood Cell (RBC) Count 4.88 mill/uL (4.20-5.40); White Blood Cell (WBC) Count 7.9 thou/uL (4.8-10.8)
[2022-07-22 15:43] LABS: ALT (SGPT) 22 U/L (8-55); AST (SGOT) 17 U/L (5-34); Albumin 4.3 g/dL (3.4-4.8); Alkaline Phosphatase 86 U/L (40-110); Anion Gap 14 mmol/L (10-20); BUN (Urea Nitrogen) 8 mg/dL (9.8-20.1); Bilirubin, Total 0.7 mg/dL (0.2-1.2); Calc. Creatinine Clearance 0 mL/min (70-130); Calcium 9.5 mg/dL (7.8-10.44); Carbon Dioxide 29 mmol/L (23-31); Chloride 101 mmol/L (98-107); Estimated GFR 84; Globulin 2.8 g/dL (2.4-3.5); Glucose 108 mg/dL (80-115); Potassium 3.6 mmol/L (3.5-5.1); Protein, Total 7.1 g/dL (5.8-8.1); Sodium 140 mmol/L (136-145)
[2022-07-22] MEDS ORDERED: Azithromycin 500 MG VIAL ONE (15:57)
[2022-07-22] MEDS ORDERED: cefTRIAXone\\ROCEPHIN 1 GM VIAL ONE (15:58)
[2022-07-22] MEDS ORDERED: Senokot S 8.6-50 MG TAB PO PRN (20:05)
[2022-07-22] MEDS ORDERED: Ondansetron ODT 4 MG TAB PO PRN (20:05)
[2022-07-22] MEDS: Sodium Chloride 0.9% 1,000 ML IV SCH (22:11)
[2022-07-22] MEDS: Carvedilol 6.25 MG TAB PO SCH (22:19)
[2022-07-22] MEDS: Atorvastatin Calcium 40 MG TAB PO SCH (22:19)
[2022-07-22] MEDS: Famotidine 20 MG TAB PO SCH (22:20)
[2022-07-23] MEDS: methylPREDNISolone Sod Succ 40 MG VIAL IVP SCH ×5 (00:15→23:49)
[2022-07-23 00:46] VITALS: BMI 24.7
[2022-07-23 04:27] LABS: #Lymphocytes 0.9 thou/uL (1.20-3.40); #Neutrophils 2.5 thou/uL (1.40-6.50); %Basophils 0.7 % (0.0-1.0); %Eosinophils 0.3 % (0.0-10.0); %Lymphocytes 25.6 % (21.0-51.0); %Monocytes 1.2 % (0.0-10.0); %Neutrophils 72.1 % (42.0-75.0); Hemoglobin 13.7 g/dL (12.0-16.0); Mean Corpuscular Volume 93.8 fl (78.0-98.0); Mean Platelet Volume 6.8 fL (7.4-10.4); Platelet Count 298 thou/uL (130-400); RBC Distribution Width 12.7 % (11.5-14.5); Red Blood Cell (RBC) Count 4.42 mill/uL (4.20-5.40); White Blood Cell (WBC) Count 3.4 thou/uL (4.8-10.8)
[2022-07-23 04:43] LABS: ALT (SGPT) 17 U/L (8-55); AST (SGOT) 16 U/L (5-34); Albumin 3.7 g/dL (3.4-4.8); Alkaline Phosphatase 77 U/L (40-110); Anion Gap 12 mmol/L (10-20); BUN (Urea Nitrogen) 10 mg/dL (9.8-20.1); Bilirubin, Total 0.4 mg/dL (0.2-1.2); Calc. Creatinine Clearance 72 mL/min (70-130); Calcium 8.7 mg/dL (7.8-10.44); Carbon Dioxide 25 mmol/L (23-31); Chloride 104 mmol/L (98-107); Estimated GFR 94; Globulin 2.8 g/dL (2.4-3.5); Glucose 190 mg/dL (80-115); Potassium 4.2 mmol/L (3.5-5.1); Protein, Total 6.5 g/dL (5.8-8.1); Sodium 137 mmol/L (136-145)
[2022-07-23] MEDS: Mometasone 200 MCG/Formoterol 5 MCG 120 PUFF INHALER INH SCH ×2 (06:41→19:12)
[2022-07-23] MEDS: Famotidine 20 MG TAB PO SCH ×2 (10:33→20:13)
[2022-07-23] MEDS: Carvedilol 6.25 MG TAB PO SCH ×3 (10:33→20:13)
[2022-07-23] MEDS: Enoxaparin Sodium 40 MG/0.4 ML SYRINGE SC SCH (10:33)
[2022-07-23] MEDS: Sodium Chloride 0.9% 1,000 ML IV SCH (16:24)
[2022-07-23] MEDS: Atorvastatin Calcium 40 MG TAB PO SCH (20:13)
[2022-07-23 22:06] LABS: Anion Gap 12 mmol/L (10-20); BUN (Urea Nitrogen) 10 mg/dL (9.8-20.1); Calc. Creatinine Clearance 78 mL/min (70-130); Calcium 8.7 mg/dL (7.8-10.44); Carbon Dioxide 26 mmol/L (23-31); Chloride 105 mmol/L (98-107); Estimated GFR 98; Glucose 177 mg/dL (80-115); Magnesium 1.8 mg/dL (1.6-2.6); Potassium 3.7 mmol/L (3.5-5.1); Sodium 139 mmol/L (136-145)
[2022-07-24 04:35] LABS: #Basophils 0.1 thou/uL (0.0-0.2); #Lymphocytes 0.9 thou/uL (1.20-3.40); #Monocytes 0.3 thou/uL (0.11-0.59); #Neutrophils 8.2 thou/uL (1.40-6.50); %Eosinophils 0.2 % (0.0-10.0); %Lymphocytes 9.5 % (21.0-51.0); %Monocytes 2.6 % (0.0-10.0); %Neutrophils 86.7 % (42.0-75.0); Hemoglobin 12.2 g/dL (12.0-16.0); Mean Corpuscular HGB CONC 32.9 g/dL (32.0-36.0); Mean Corpuscular Hemoglobin 30.5 pg (27.0-31.0); Mean Corpuscular Volume 92.9 fl (78.0-98.0); Mean Platelet Volume 7.2 fL (7.4-10.4); Platelet Count 271 thou/uL (130-400); RBC Distribution Width 12.5 % (11.5-14.5); Red Blood Cell (RBC) Count 3.98 mill/uL (4.20-5.40); White Blood Cell (WBC) Count 9.5 thou/uL (4.8-10.8)
[2022-07-24 05:09] LABS: Anion Gap 10 mmol/L (10-20); BUN (Urea Nitrogen) 8 mg/dL (9.8-20.1); Calc. Creatinine Clearance 78 mL/min (70-130); Calcium 8.8 mg/dL (7.8-10.44); Carbon Dioxide 26 mmol/L (23-31); Chloride 107 mmol/L (98-107); Estimated GFR 98; Glucose 160 mg/dL (80-115); Sodium 139 mmol/L (136-145)
[2022-07-24] MEDS: methylPREDNISolone Sod Succ 40 MG VIAL IVP SCH ×4 (05:50→23:36)
[2022-07-24] MEDS: Mometasone 200 MCG/Formoterol 5 MCG 120 PUFF INHALER INH SCH ×2 (07:17→18:55)
[2022-07-24] MEDS: Famotidine 20 MG TAB PO SCH ×2 (11:05→21:17)
[2022-07-24] MEDS: Enoxaparin Sodium 40 MG/0.4 ML SYRINGE SC SCH (11:06)
[2022-07-24] MEDS: Sodium Chloride 0.9% 1,000 ML IV SCH (11:07)
[2022-07-24] MEDS: Atorvastatin Calcium 40 MG TAB PO SCH (21:16)
[2022-07-24 23:05] LABS: Anion Gap 10 mmol/L (10-20); BUN (Urea Nitrogen) 12 mg/dL (9.8-20.1); Calc. Creatinine Clearance 77 mL/min (70-130); Calcium 8.5 mg/dL (7.8-10.44); Carbon Dioxide 27 mmol/L (23-31); Chloride 104 mmol/L (98-107); Estimated GFR 97; Glucose 159 mg/dL (80-115); Magnesium 1.8 mg/dL (1.6-2.6); Potassium 3.5 mmol/L (3.5-5.1); Sodium 137 mmol/L (136-145)
[2022-07-25] MEDS ORDERED: Magnesium Sulfate 2 GM in Sodium Chloride 0.9% 250 ML 250 ML IVPB SCH (01:15)
[2022-07-25] MEDS ORDERED: Magnesium 2 GM/50 ML(in water) 2 GM in Premix Bag 1 BAG IVPB SCH (01:15)
[2022-07-25 05:11] LABS: #Lymphocytes 0.8 thou/uL (1.20-3.40); #Monocytes 0.3 thou/uL (0.11-0.59); #Neutrophils 8.7 thou/uL (1.40-6.50); %Basophils 0.1 % (0.0-1.0); %Eosinophils 0.1 % (0.0-10.0); %Lymphocytes 8.6 % (21.0-51.0); %Neutrophils 88.3 % (42.0-75.0); Hemoglobin 12.3 g/dL (12.0-16.0); Mean Corpuscular HGB CONC 32.2 g/dL (32.0-36.0); Mean Corpuscular Hemoglobin 30.1 pg (27.0-31.0); Mean Corpuscular Volume 93.3 fl (78.0-98.0); Mean Platelet Volume 7.3 fL (7.4-10.4); Platelet Count 287 thou/uL (130-400); RBC Distribution Width 12.7 % (11.5-14.5); Red Blood Cell (RBC) Count 4.08 mill/uL (4.20-5.40); White Blood Cell (WBC) Count 9.8 thou/uL (4.8-10.8)
[2022-07-25 05:36] LABS: Anion Gap 12 mmol/L (10-20); BUN (Urea Nitrogen) 11 mg/dL (9.8-20.1); Calc. Creatinine Clearance 80 mL/min (70-130); Calcium 8.5 mg/dL (7.8-10.44); Carbon Dioxide 25 mmol/L (23-31); Chloride 106 mmol/L (98-107); Estimated GFR 98; Glucose 157 mg/dL (80-115); Potassium 3.7 mmol/L (3.5-5.1); Sodium 139 mmol/L (136-145)
[2022-07-25] MEDS: methylPREDNISolone Sod Succ 40 MG VIAL IVP SCH ×4 (06:17→23:46)
[2022-07-25] MEDS: Mometasone 200 MCG/Formoterol 5 MCG 120 PUFF INHALER INH SCH ×2 (06:51→18:46)
[2022-07-25] MEDS: Sodium Chloride 0.9% 1,000 ML IV SCH (08:36)
[2022-07-25] MEDS: Carvedilol 3.125 MG TAB PO SCH ×2 (08:36→16:45)
[2022-07-25] MEDS: Enoxaparin Sodium 40 MG/0.4 ML SYRINGE SC SCH (08:36)
[2022-07-25] MEDS: Famotidine 20 MG TAB PO SCH (08:36)
[2022-07-25] MEDS: Chloraseptic Spray 180 ml Bottle PO PRN (18:54)
[2022-07-25] MEDS: Atorvastatin Calcium 40 MG TAB PO SCH (20:14)
[2022-07-26 04:23] LABS: #Lymphocytes 0.7 thou/uL (1.20-3.40); #Monocytes 0.3 thou/uL (0.11-0.59); #Neutrophils 6.7 thou/uL (1.40-6.50); %Basophils 0.1 % (0.0-1.0); %Eosinophils 0.3 % (0.0-10.0); %Monocytes 4.1 % (0.0-10.0); %Neutrophils 86.5 % (42.0-75.0); Hemoglobin 11.9 g/dL (12.0-16.0); Mean Corpuscular HGB CONC 31.6 g/dL (32.0-36.0); Mean Corpuscular Hemoglobin 29.5 pg (27.0-31.0); Mean Corpuscular Volume 93.4 fl (78.0-98.0); Mean Platelet Volume 7.3 fL (7.4-10.4); Platelet Count 274 thou/uL (130-400); RBC Distribution Width 12.7 % (11.5-14.5); Red Blood Cell (RBC) Count 4.01 mill/uL (4.20-5.40); White Blood Cell (WBC) Count 7.7 thou/uL (4.8-10.8)
[2022-07-26 04:49] LABS: Anion Gap 11 mmol/L (10-20); BUN (Urea Nitrogen) 11 mg/dL (9.8-20.1); Calc. Creatinine Clearance 78 mL/min (70-130); Calcium 8.7 mg/dL (7.8-10.44); Carbon Dioxide 29 mmol/L (23-31); Chloride 103 mmol/L (98-107); Estimated GFR 98; Glucose 163 mg/dL (80-115); Potassium 3.5 mmol/L (3.5-5.1); Sodium 139 mmol/L (136-145)
[2022-07-26] MEDS: methylPREDNISolone Sod Succ 40 MG VIAL IVP SCH ×3 (05:08→17:33)
[2022-07-26] MEDS: Mometasone 200 MCG/Formoterol 5 MCG 120 PUFF INHALER INH SCH ×2 (07:30→19:03)
[2022-07-26] MEDS: Lisinopril 10 MG TAB PO SCH ×2 (09:57→20:57)
[2022-07-26] MEDS: Enoxaparin Sodium 40 MG/0.4 ML SYRINGE SC SCH (09:57)
[2022-07-26] MEDS: Carvedilol 3.125 MG TAB PO SCH ×2 (09:57→17:33)
[2022-07-26] MEDS: Sodium Chloride 0.9% 1,000 ML IV SCH (09:58)
[2022-07-26] MEDS: Chloraseptic Spray 180 ml Bottle PO PRN (10:03)
[2022-07-26] MEDS: Atorvastatin Calcium 40 MG TAB PO SCH (20:58)
[2022-07-27] MEDS: Sodium Chloride 0.9% 1,000 ML IV SCH (04:00)
[2022-07-27 04:44] LABS: #Eosinphils 0.1 thou/uL (0.0-0.7); #Monocytes 0.7 thou/uL (0.11-0.59); #Neutrophils 6.7 thou/uL (1.40-6.50); %Basophils 0.3 % (0.0-1.0); %Eosinophils 0.7 % (0.0-10.0); %Lymphocytes 11.8 % (21.0-51.0); %Monocytes 8.4 % (0.0-10.0); %Neutrophils 78.8 % (42.0-75.0); Hemoglobin 13.3 g/dL (12.0-16.0); Mean Corpuscular HGB CONC 32.4 g/dL (32.0-36.0); Mean Corpuscular Hemoglobin 30.1 pg (27.0-31.0); Mean Platelet Volume 7.3 fL (7.4-10.4); Platelet Count 298 thou/uL (130-400); RBC Distribution Width 12.5 % (11.5-14.5); Red Blood Cell (RBC) Count 4.42 mill/uL (4.20-5.40); White Blood Cell (WBC) Count 8.5 thou/uL (4.8-10.8)
[2022-07-27 04:51] LABS: Anion Gap 12 mmol/L (10-20); BUN (Urea Nitrogen) 13 mg/dL (9.8-20.1); Calc. Creatinine Clearance 78 mL/min (70-130); Calcium 8.9 mg/dL (7.8-10.44); Carbon Dioxide 26 mmol/L (23-31); Chloride 103 mmol/L (98-107); Estimated GFR 98; Glucose 126 mg/dL (80-115); Potassium 3.4 mmol/L (3.5-5.1); Sodium 138 mmol/L (136-145)
[2022-07-27] MEDS: Mometasone 200 MCG/Formoterol 5 MCG 120 PUFF INHALER INH SCH (06:24)
[2022-07-27] MEDS ORDERED: predniSONE 50 MG TAB PO SCH (08:00)
[2022-07-27 08:41] VITALS: TEMP 96.1
[2022-07-27] MEDS: Enoxaparin Sodium 40 MG/0.4 ML SYRINGE SC SCH (09:47)
[2022-07-27] MEDS: Carvedilol 3.125 MG TAB PO SCH (09:47)
[2022-07-27] MEDS: Lisinopril 10 MG TAB PO SCH (09:47)
[2022-07-27 09:49] VITALS: BP 149/67
== END 2022-07-27 11:50 | disposition home or self-care (01) | DRG 189 ==
LOC: ERS 14:39 → 2NO 20:08
PROVIDERS: ADMIT Student in an Organized Health Care Education/Training Program; ATTEND Hospitalist
DX: J96.01 Acute respiratory failure with hypoxia (principal); J44.1 Chronic obstructive pulmonary disease with (acute) exacerbation; I42.9 Cardiomyopathy, unspecified; E78.5 Hyperlipidemia, unspecified; E78.00 Pure hypercholesterolemia, unspecified; I10 Essential (primary) hypertension; F32.A Depression, unspecified; F17.210 Nicotine dependence, cigarettes, uncomplicated; G47.33 Obstructive sleep apnea (adult) (pediatric); K21.9 Gastro-esophageal reflux disease without esophagitis; I45.5 Other specified heart block; Z20.822 Contact with and (suspected) exposure to COVID-19; Z90.49 Acquired absence of other specified parts of digestive tract; Z79.899 Other long term (current) drug therapy; I25.2 Old myocardial infarction; Z90.710 Acquired absence of both cervix and uterus
CPT/HCPCS: 36415; 71045; 80048; 80053; 83735; 83880; 84484; 85025; 87040; 93005; 93010; 93306; 94640; 96374; 96375; J0456; J0696; J1650; J2920; J2930; J3475; J7050; J7512; J7611; J7620; U0003; U0005

== ENCOUNTER 2022-09-23 00:33 | Inpatient (IN) | payer MEDICARE ==
[2022-09-23 01:35] LABS: #Basophils 0.1 thou/uL (0.0-0.2); #Eosinphils 0.4 thou/uL (0.0-0.7); #Lymphocytes 1.8 thou/uL (1.20-3.40); #Monocytes 0.5 thou/uL (0.11-0.59); #Neutrophils 2.3 thou/uL (1.40-6.50); %Basophils 1.2 % (0.0-1.0); %Eosinophils 8.8 % (0.0-10.0); %Lymphocytes 35.6 % (21.0-51.0); %Neutrophils 44.5 % (42.0-75.0); Hemoglobin 13.3 g/dL (12.0-16.0); Mean Corpuscular HGB CONC 33.2 g/dL (32.0-36.0); Mean Corpuscular Hemoglobin 30.5 pg (27.0-31.0); Mean Corpuscular Volume 91.7 fl (78.0-98.0); Mean Platelet Volume 6.7 fL (7.4-10.4); Platelet Count 339 10x3/uL (130-400); Red Blood Cell (RBC) Count 4.38 mill/uL (4.20-5.40); White Blood Cell (WBC) Count 5.1 10x3/uL (4.8-10.8)
[2022-09-23 01:54] LABS: ALT (SGPT) 10 U/L (8-55); AST (SGOT) 15 U/L (5-34); Albumin 3.7 g/dL (3.4-4.8); Alkaline Phosphatase 95 U/L (40-110); Anion Gap 15 mmol/L (10-20); BUN (Urea Nitrogen) 10 mg/dL (9.8-20.1); Bilirubin, Total 0.4 mg/dL (0.2-1.2); Calc. Creatinine Clearance 0 mL/min (70-130); Calcium 8.8 mg/dL (7.8-10.44); Carbon Dioxide 21 mmol/L (23-31); Chloride 108 mmol/L (98-107); Estimated GFR 97; Globulin 2.4 g/dL (2.4-3.5); Glucose 104 mg/dL (80-115); Potassium 4.3 mmol/L (3.5-5.1); Protein, Total 6.1 g/dL (5.8-8.1); Sodium 140 mmol/L (136-145)
[2022-09-23] MEDS ORDERED: Magnesium 2 GM/50 ML BAG (IN WATER) ONE (01:54)
[2022-09-23] MEDS ORDERED: Aspirin Chewable 81 MG TAB ONE (01:54)
[2022-09-23] MEDS ORDERED: methylPREDNISolone Sod Succ/PF 125 MG/2 ML VIAL ONE (01:54)
[2022-09-23] MEDS ORDERED: Ipratropium/Albuterol 3 ML NEB ONE (02:00)
[2022-09-23 02:59] LABS: Magnesium 2.4 mg/dL (1.6-2.6)
[2022-09-23] MEDS ORDERED: Acetaminophen 500 MG TAB ONE (03:07)
[2022-09-23] MEDS ORDERED: Ipratropium/Albuterol 3 ML NEB NEB PRN (05:39)
[2022-09-23 06:04] LABS: SARS-CoV-2 NAA Rapid Test Not Detected (NotDetected)
[2022-09-23] MEDS: methylPREDNISolone Sod Succ 40 MG VIAL IVP SCH (08:46)
[2022-09-23] MEDS: Aspirin 81 mg Enteric Coated Tablet PO SCH (08:46)
[2022-09-23] MEDS: Ipratropium/Albuterol 3 ML NEB NEB SCH ×3 (10:01→19:57)
[2022-09-23] MEDS ORDERED: Iopamidol 370 76% 100 ML VIAL ONE (11:07)
[2022-09-23] MEDS ORDERED: FLU VACC QS2022-23(65YR UP)/PF 240 MCG/0.7 ML SYRINGE IM ONE (14:00)
[2022-09-24] MEDS ORDERED: Ipratropium Bromide 2.5 ml Neb ONE ×2 (00:20→07:18)
[2022-09-24] MEDS: Ipratropium/Albuterol 3 ML NEB NEB SCH ×4 (00:31→18:38)
[2022-09-24 06:17] VITALS: BMI 24.1
[2022-09-24 06:37] LABS: #Lymphocytes 1.9 thou/uL (1.20-3.40); #Monocytes 0.8 thou/uL (0.11-0.59); #Neutrophils 4.3 thou/uL (1.40-6.50); %Basophils 0.3 % (0.0-1.0); %Eosinophils 0.2 % (0.0-10.0); %Lymphocytes 27.3 % (21.0-51.0); %Neutrophils 61.1 % (42.0-75.0); Hemoglobin 11.8 g/dL (12.0-16.0); Mean Corpuscular HGB CONC 33.2 g/dL (32.0-36.0); Mean Corpuscular Hemoglobin 30.8 pg (27.0-31.0); Mean Corpuscular Volume 92.6 fl (78.0-98.0); Mean Platelet Volume 6.6 fL (7.4-10.4); Platelet Count 326 10x3/uL (130-400); Red Blood Cell (RBC) Count 3.85 mill/uL (4.20-5.40)
[2022-09-24 06:54] LABS: Anion Gap 11 mmol/L (10-20); BUN (Urea Nitrogen) 11 mg/dL (9.8-20.1); Calc. Creatinine Clearance 69 mL/min (70-130); Calcium 8.9 mg/dL (7.8-10.44); Carbon Dioxide 25 mmol/L (23-31); Chloride 107 mmol/L (98-107); Estimated GFR 93; Glucose 89 mg/dL (80-115); Potassium 4.1 mmol/L (3.5-5.1); Sodium 139 mmol/L (136-145)
[2022-09-24] MEDS: Aspirin 81 mg Enteric Coated Tablet PO SCH (08:03)
[2022-09-24] MEDS: methylPREDNISolone Sod Succ 40 MG VIAL IVP SCH ×2 (08:04→20:25)
[2022-09-24] MEDS: Carvedilol 6.25 MG TAB PO SCH ×2 (08:55→20:25)
[2022-09-24] MEDS: Furosemide 20 MG TAB PO SCH (08:55)
[2022-09-24] MEDS: Lisinopril 10 MG TAB PO SCH ×2 (08:55→20:25)
[2022-09-24] MEDS: guaiFENesin ER 600 MG TAB PO SCH ×2 (08:56→20:24)
[2022-09-24] MEDS: Atorvastatin Calcium 40 MG TAB PO SCH (20:25)
[2022-09-25] MEDS: Ipratropium/Albuterol 3 ML NEB NEB SCH ×4 (00:17→18:46)
[2022-09-25 07:23] LABS: #Lymphocytes 1.1 thou/uL (1.20-3.40); #Monocytes 0.3 thou/uL (0.11-0.59); #Neutrophils 4.7 thou/uL (1.40-6.50); %Basophils 0.1 % (0.0-1.0); %Eosinophils 0.1 % (0.0-10.0); %Lymphocytes 17.8 % (21.0-51.0); %Monocytes 5.3 % (0.0-10.0); %Neutrophils 76.6 % (42.0-75.0); Hemoglobin 13.3 g/dL (12.0-16.0); Mean Corpuscular HGB CONC 33.5 g/dL (32.0-36.0); Mean Corpuscular Volume 92.6 fl (78.0-98.0); Mean Platelet Volume 6.8 fL (7.4-10.4); Platelet Count 387 10x3/uL (130-400); RBC Distribution Width 13.9 % (11.5-14.5); Red Blood Cell (RBC) Count 4.29 mill/uL (4.20-5.40); White Blood Cell (WBC) Count 6.1 10x3/uL (4.8-10.8)
[2022-09-25 07:30] LABS: Anion Gap 14 mmol/L (10-20); BUN (Urea Nitrogen) 16 mg/dL (9.8-20.1); Calc. Creatinine Clearance 71 mL/min (70-130); Calcium 9.5 mg/dL (7.8-10.44); Carbon Dioxide 26 mmol/L (23-31); Chloride 104 mmol/L (98-107); Estimated GFR 96; Glucose 117 mg/dL (80-115); Potassium 4.2 mmol/L (3.5-5.1); Sodium 140 mmol/L (136-145)
[2022-09-25] MEDS: Aspirin 81 mg Enteric Coated Tablet PO SCH (08:37)
[2022-09-25] MEDS: methylPREDNISolone Sod Succ 40 MG VIAL IVP SCH ×2 (08:37→20:31)
[2022-09-25] MEDS: Furosemide 20 MG TAB PO SCH (08:37)
[2022-09-25] MEDS: Carvedilol 6.25 MG TAB PO SCH ×2 (08:37→20:31)
[2022-09-25] MEDS: Lisinopril 10 MG TAB PO SCH ×2 (08:37→20:31)
[2022-09-25] MEDS: guaiFENesin ER 600 MG TAB PO SCH ×2 (08:37→20:31)
[2022-09-25] MEDS: Atorvastatin Calcium 40 MG TAB PO SCH (20:31)
[2022-09-26] MEDS ORDERED: Ipratropium Bromide 2.5 ml Neb ONE (00:26)
[2022-09-26] MEDS: Ipratropium/Albuterol 3 ML NEB NEB SCH ×3 (00:31→12:21)
[2022-09-26 07:31] LABS: #Lymphocytes 1.4 thou/uL (1.20-3.40); #Monocytes 0.5 thou/uL (0.11-0.59); %Basophils 0.1 % (0.0-1.0); %Eosinophils 0.3 % (0.0-10.0); %Lymphocytes 20.2 % (21.0-51.0); %Neutrophils 72.5 % (42.0-75.0); Hemoglobin 13.1 g/dL (12.0-16.0); Mean Corpuscular HGB CONC 32.8 g/dL (32.0-36.0); Mean Corpuscular Hemoglobin 30.3 pg (27.0-31.0); Mean Corpuscular Volume 92.4 fl (78.0-98.0); Mean Platelet Volume 6.7 fL (7.4-10.4); Platelet Count 393 10x3/uL (130-400); RBC Distribution Width 13.9 % (11.5-14.5); Red Blood Cell (RBC) Count 4.33 mill/uL (4.20-5.40); White Blood Cell (WBC) Count 6.9 10x3/uL (4.8-10.8)
[2022-09-26 08:00] LABS: Anion Gap 16 mmol/L (10-20); BUN (Urea Nitrogen) 15 mg/dL (9.8-20.1); Calc. Creatinine Clearance 70 mL/min (70-130); Calcium 9.1 mg/dL (7.8-10.44); Carbon Dioxide 24 mmol/L (23-31); Chloride 102 mmol/L (98-107); Estimated GFR 94; Glucose 100 mg/dL (80-115); Potassium 4.5 mmol/L (3.5-5.1); Sodium 137 mmol/L (136-145)
[2022-09-26 08:21] VITALS: BP 131/74; TEMP 97.6
[2022-09-26] MEDS: Aspirin 81 mg Enteric Coated Tablet PO SCH (09:14)
[2022-09-26] MEDS: methylPREDNISolone Sod Succ 40 MG VIAL IVP SCH (09:14)
[2022-09-26] MEDS: Lisinopril 10 MG TAB PO SCH (09:15)
[2022-09-26] MEDS: guaiFENesin ER 600 MG TAB PO SCH (09:15)
[2022-09-26] MEDS: Furosemide 20 MG TAB PO SCH (09:15)
[2022-09-26] MEDS: Carvedilol 6.25 MG TAB PO SCH (09:15)
== END 2022-09-26 14:32 | disposition home or self-care (01) | DRG 189 ==
LOC: ERS 00:33 → T4-B 04:29 → OBSVTOIN 09-24 13:10
PROVIDERS: ADMIT Internal Medicine; ATTEND Internal Medicine
DX: J96.01 Acute respiratory failure with hypoxia (principal); J44.1 Chronic obstructive pulmonary disease with (acute) exacerbation; I42.8 Other cardiomyopathies; Z20.822 Contact with and (suspected) exposure to COVID-19; I10 Essential (primary) hypertension; R79.89 Other specified abnormal findings of blood chemistry; N32.9 Bladder disorder, unspecified; Z28.21 Immunization not carried out because of patient refusal; Z99.81 Dependence on supplemental oxygen; Z85.038 Personal history of other malignant neoplasm of large intestine; Z79.899 Other long term (current) drug therapy; Z79.51 Long term (current) use of inhaled steroids; Z90.49 Acquired absence of other specified parts of digestive tract; Z90.710 Acquired absence of both cervix and uterus; Z87.891 Personal history of nicotine dependence
CPT/HCPCS: 36415; 36416; 71045; 71275; 80048; 80053; 83735; 83880; 84484; 85025; 85379; 93005; 94640; 96372; 96374; 96375; 96376; G0378; J1650; J2920; J2930; J3475; J7620; Q9967

== ENCOUNTER 2022-12-21 10:07 | Outpatient (CLI) | payer MEDICARE | END 2022-12-21 10:08 | disposition home or self-care (01) | LOC: BICMAMMO 10:07 | PROVIDERS: ATTEND Family Medicine | DX: Z12.31 Encounter for screening mammogram for malignant neoplasm of breast (principal); N95.9 Unspecified menopausal and perimenopausal disorder; M81.0 Age-related osteoporosis without current pathological fracture; M85.88 Other specified disorders of bone density and structure, other site; Z85.038 Personal history of other malignant neoplasm of large intestine | CPT/HCPCS: 77063; 77067; 77080 ==

== ENCOUNTER 2023-03-06 09:21 | Day surgery (SDC) | payer MEDICARE ==
[2023-03-04 12:31] VITALS: BMI 25.4
[2023-03-06] MEDS ORDERED: Midazolam HCl 2 mg/2 ml Vial ONE (11:12)
[2023-03-06] MEDS ORDERED: Ketamine 50 MG/ML (10ML VIAL) ONE (11:13)
[2023-03-06] MEDS ORDERED: Lidocaine 1% PF 5 ML VIAL ONE (11:26)
[2023-03-06] MEDS ORDERED: PROPOFOL 200 MG/20 ML VIAL ONE (11:26)
== END 2023-03-06 13:55 | disposition home or self-care (01) ==
LOC: SDC 09:21
PROVIDERS: ATTEND Internal Medicine Gastroenterology
PROC: 0DBM8ZX Excision of Descending Colon, Via Natural or Artificial Opening Endoscopic, Diagnostic (ICD-10-PCS; principal; 2023-03-06)
PROC: 0DB68ZX Excision of Stomach, Via Natural or Artificial Opening Endoscopic, Diagnostic (ICD-10-PCS; 2023-03-06)
DX: K22.70 Barrett's esophagus without dysplasia (principal); K63.5 Polyp of colon; K29.60 Other gastritis without bleeding; K64.8 Other hemorrhoids; K31.89 Other diseases of stomach and duodenum; E78.5 Hyperlipidemia, unspecified; J44.9 Chronic obstructive pulmonary disease, unspecified; Z87.891 Personal history of nicotine dependence; Z90.710 Acquired absence of both cervix and uterus; Z90.49 Acquired absence of other specified parts of digestive tract; Z79.899 Other long term (current) drug therapy; Z85.038 Personal history of other malignant neoplasm of large intestine
CPT/HCPCS: 88305; J2250; J2704